=== PATIENT | male | born 1955 | race Caucasian/White ===

== ENCOUNTER → 2020-07-18 08:04 | Outpatient (BNVA) | payer MEDICARE, BC, SELFPAY | PROVIDERS: PCP Internal Medicine; Visit Provider Internal Medicine | DX: R07.2 Precordial pain (principal); I10 Essential (primary) hypertension; E78.5 Hyperlipidemia, unspecified; Z51.81 Encounter for therapeutic drug level monitoring; Z79.899 Other long term (current) drug therapy | CPT/HCPCS: 93005; 99202 ==

== ENCOUNTER → 2020-07-22 07:08 | Outpatient (REF) | payer MEDICARE, BC, SELFPAY ==
--- NOTE | ~2020-07-22 | NM_ITS ---
Exercise Myocardial perfusion study Indication: Precordial chest pain to evaluate for myocardial ischemia Technique: The patient was brought in for an exercise perfusion study on 07/22/2020. Patient performed exercise as per Bora protocol and was injected 30 mCi of sestamibi was given intravenously one target HR was achieved. Images were obtained using the SPECT gamma camera interlaced with the gating device. Images were obtained in supine position. Resting perfusion study was performed on 07/23/2020. Patient was administered 30 mCi of sestamibi intravenously at rest. Images were then obtained in supine position. Images obtained with and without CT attenuation. Total DLP 61 mGy-cm. Images were processed with the software and compared side to side in short axis, horizontal long axis and vertical long axis views. Findings: The stress perfusion study showed non attenuated images show mildly reduced uptake in the basal inferior wall of the LV myocardium. Remainder of the LV myocardium is normally perfused. Attenuation corrected images show minimally reduced uptake in the apex of the LV myocardium.. The gated study shows normal LV systolic function with calculated LVEF of 74%. LV cavity is normal in size. The gated study shows normal systolic wall thickening and contraction of all segments. There is no transient ischemic dilation. Resting study shows no change in perfusion pattern compared to stress perfusion study. Gating at rest reveals normal cyst colic wall motion with ejection fraction at 73%. The findings are consistent with normal myocardial perfusion. NM/NM cardiolite stress test Impression: 1. Normal myocardial perfusion 2. Gated LVEF is 74% 3. Transient ischemic dilatation not present Stress EKG is negative for ischemia
--- NOTE | 2020-07-22 07:12 | CA_ITS ---
Transthoracic Echocardiogram Patient (Last, First, Middle): Gato Dailey D Gender: Male Date of : 1955 Age: 64 Procedure Date: 07/22/2020 Procedure Type: Transthoracic Echocardiogram Location: OP Height: 180.34 cm Weight: 79.38 kg BSA: 1.99 m2 Heart Rate: bpm BP: 124 / 68 mmHg Industrial Electrical Engineer: Referring MD: Niko Ribeiro MD Symptoms: R07.2 - Precordial pain Study Quality: Good ECG Rhythm: Sinus Conclusions: - The left ventricular systolic function is normal. The visually estimated ejection fraction is between 60-65%. - There is mild mitral valve regurgitation. - There is mild tricuspid valve regurgitation. Findings Left Ventricle Normal left ventricular cavity size. There is normal left ventricular wall thickness. The left ventricular systolic function is normal. The visually estimated ejection fraction is between 60-65%. There is no evidence of regional wall motion abnormalities. Diastolic function is normal for age. Right Ventricle Normal right ventricular cavity size and systolic function. Atria The left atrium is mildly dilated. The right atrium is normal in size. Aortic Valve There is a normal trileaflet aortic valve. There is no aortic valve stenosis. There is no aortic valve regurgitation. Mitral Valve The mitral valve appears normal. There is mild mitral valve regurgitation. There is no mitral valve stenosis. Pulmonic Valve The pulmonic valve was not well visualized. There is mild pulmonic valve regurgitation. Tricuspid Valve Normal tricuspid valve structure. There is mild tricuspid valve regurgitation. The pulmonary artery systolic pressure is normal. Great Vessels The aortic annulus, sinuses of valsalva, and asc aorta are normal in size. Venous The inferior vena cava is normal in size and collapses greater than 50% with inspiration. Pericardium/Pleural There is no evidence of pericardial effusion. Prior Study Comparison No significant change compared to prior study dated: 10/08/2008. Measurements 2D Linear Measurements IVSd: 0.95 0.6-0.9/0.6-1.0 cm LVIDd: 4.26 3.9-5.3/4.2-5.9 cm LVIDd Index: 2.14 2.4-3.2/2.2-3.1 cm/m2 LVIDs: 2.62 2.0-3.6 cm LVPWd: 0.98 0.7-1.1 cm Ao Root: 3.00 2.1-3.5 cm LA Diam: 4.10 2.7-3.8/3.0-4.0 cm LAIDs Index: 2.06 1.5-2.3 cm/m2 LV Mass: 166.74 67-162/88-224 g LV Mass Index: 83.79 43-95/49-115 g/m2 LVOT Diam: 2.30 3.0+(-)1.3 cm 2D Systolic Function EF 4C: 63.10 >55% EF 2C: 65.00 >55% EF BiP: 64.20 >55% Mitral Valve MV Pk E: 0.71 MV PK A: 0.60 MV Decel Time: 248.00 E/A: 1.20 E'Lateral: 13.80 E'Medial: 8.03 E/E' Med: 8.90 E/E' Lat: 5.20 PHT: 73.00 MVA PHT: 3.01 Decel K[place]haw: 2.87 Aortic Valve AoV Pk Cisco: 1.36 AoV Mn Cisco: 0.83 AoV VTI: 0.33 AoV Pk Grad: 7.00 Aov Mn Grad: 3.00 CHRISS Cont.VTI: 3.48 LVOT LVOT Pk Cisco: 1.12 LVOT Mn Cisco: 0.72 LVOT VTI: 0.28 LVOT Pk Grad: 5.00 LVOT Mn Grad: 3.00 LVOT Diam: 2.30 LVOT Area: 4.15 Diastolic Function MV Pk E: 0.71 MV Pk A: 0.60 E/A: 1.20 E'Medial: 8.03 E/E' Med: 8.90 E' Laterial: 13.80 E/E' Lat: 5.20 Tricuspid Valve TR Pk Cisco: 2.54 TR Pk Grad: 26.00 Great Vessels Aorta Ao Root-2D: 3.00 2.0-3.7 cm Ao Asc: 3.20 2.1-3.4 cm Pulmonary Valve PV Pk Cisco: 1.11 Peak PV Grad: 5.00 Updated in Other Vendor System with Status of Final Niko Ribeiro MD electronically signed on 07/22/2020 11:47:06 AM with status of Final
--- NOTE | 2020-07-22 07:13 | CA_ITS ---
Acquisition Time: 2020-07-22 08:31:17 Total Exercise Time: 00:04:32 Test Indications: Chest Pain Medications: SOTOLOL LISINOPRIL ATORVASTATIN Protocol: CLEOPATRA Max HR: 155 BPM 100% of Pred: 154 BPM Max BP: 164/080 mmHG Max Work Load: 6.4 METS Exercise stress nuclear using Cleopatra protocol. Pt tolerated well, METS 6.40. TAPHR up to 100%. Denies any anginal sx. EKG without arrhythmias. No ischemic changes seen in peak exercise or in recovery period. Nuclear images to follow. Normotensive response to exercise. Test reviewed with Dr. Ribeiro Referred By: Niko Ribeiro Overread By: Vincenzo Victoria
== END ==
LOC: HO.CARD 07:08
PROVIDERS: PCP Internal Medicine; Visit Provider Internal Medicine
DX: R07.2 Precordial pain (principal)
CPT/HCPCS: 78452; 93017; 93306; A9500; J0280; J2785

== ENCOUNTER → 2020-07-31 08:19 | Outpatient (BNVA) | payer MEDICARE, BC, SELFPAY | PROVIDERS: PCP Internal Medicine; Visit Provider Internal Medicine | DX: R07.2 Precordial pain (principal); I10 Essential (primary) hypertension; E78.5 Hyperlipidemia, unspecified; Z51.81 Encounter for therapeutic drug level monitoring; Z79.899 Other long term (current) drug therapy | CPT/HCPCS: 99212 ==

== ENCOUNTER 2020-08-18 11:08 | Outpatient (REF) | payer MEDICARE, BC, SELFPAY ==
--- NOTE | ~2020-08-18 | US_ITS ---
EXAMINATION: US ABDOMINAL AORTA CLINICAL INFORMATION: History of nicotine dependence. Evaluate for aneurysm. COMPARISON: None TECHNIQUE: Routine imaging of retroperitoneal abdominal aorta was performed. FINDINGS: The abdominal aorta proximal segment measures 2.6 x 2.4 cm in AP and transverse dimension. The mid segment measures 1.8 x 1.9 cm in AP and transverse dimension. Distal abdominal aorta measures 1.9 x 1.9 cm in AP and transverse dimension. Peak systolic velocity abdominal aorta measures 94 cm/sec. Right common iliac artery measures 0.9 x 1.0 cm in AP and transverse dimension. Left common iliac artery measures 1.0 x 0.8 cm in AP and transverse dimension. US/US abdominal aortic aneurysm IMPRESSION: No evidence of AAA.
== END 2020-08-18 11:09 | disposition home or self-care (01) ==
LOC: HO.US 11:08
PROVIDERS: PCP Internal Medicine; Visit Provider Internal Medicine
DX: Z87.891 Personal history of nicotine dependence (principal)
CPT/HCPCS: 76706

== ENCOUNTER → 2020-08-21 08:16 | Outpatient (BNVA) | payer MEDICARE, BC, SELFPAY | PROVIDERS: PCP Internal Medicine; Visit Provider Internal Medicine | DX: R07.2 Precordial pain (principal); R00.2 Palpitations; I10 Essential (primary) hypertension; E78.5 Hyperlipidemia, unspecified; Z79.899 Other long term (current) drug therapy; Z87.891 Personal history of nicotine dependence | CPT/HCPCS: 99212 ==

== ENCOUNTER 2020-09-20 06:54 | Outpatient (REF) | payer MEDICARE, BC, SELFPAY ==
[2020-09-20 08:49] LABS: Alanine Aminotransferase 22 U/L (0-40); Albumin Level 4.2 g/dL (3.5-5.0); Alkaline Phosphatase 62 U/L (39-117); Anion Gap 14 (12-20); Aspartate Amino Transferase 20 U/L (5-37); Bilirubin Total 1.5 mg/dL (0.0-1.0); Blood Urea Nitrogen 22 mg/dL (9-16); Calcium 9.3 mg/dL (8.4-10.2); Carbon Dioxide 25 mmol/L (22-29); Chloride 106 mmol/L (96-108); Cholesterol 132 mg/dL; Estimated Glomerular Filt Rate > 60; Glucose Fasting 101 mg/dL (60-99); HDL Cholesterol 42 mg/dL; LDL Cholesterol Calculated 78 mg/dl; Potassium 4.7 mmol/L (3.3-5.1); Sodium 140 mmol/L (135-145); Total Protein 6.7 g/dL (6.5-8.0); Triglycerides 60 mg/dL
== END 2020-09-20 06:55 | disposition home or self-care (01) ==
LOC: HO.LAB 06:54
PROVIDERS: PCP Internal Medicine; Visit Provider Internal Medicine
DX: E78.5 Hyperlipidemia, unspecified (principal); I10 Essential (primary) hypertension
CPT/HCPCS: 36415; 80053; 80061

== ENCOUNTER → 2020-10-14 08:58 | Outpatient (BNVA) | payer MEDICARE, BC, SELFPAY | PROVIDERS: PCP Internal Medicine; Visit Provider Internal Medicine ==

== ENCOUNTER → 2020-10-28 10:51 | Outpatient (REF) | payer MEDICARE, BC, SELFPAY ==
--- NOTE | 2020-10-28 10:56 | HM_ITS ---
REASON FOR THE TEST: Palpitations. INTERPRETATION: The patient was hooked up to cardiac event monitor from 10/28/2020 to 11/27/2020. FINDINGS: Baseline rhythm is normal sinus rhythm varying from 63 beats per minute to 111 beats per minute. There were no patient reported symptoms. There were no arrhythmias noted. CONCLUSION: Cardiac event monitor is remarkable for: 1. Baseline normal sinus rhythm with no arrhythmias. 2. No patient reported symptoms. Reinaldo Gooden MD NRS/MODL / [id number]
== END ==
LOC: HO.CARD 10:51
PROVIDERS: Visit Provider Internal Medicine
DX: R00.2 Palpitations (principal)
CPT/HCPCS: 93270

== ENCOUNTER → 2020-12-04 09:28 | Outpatient (BNVA) | payer MEDICARE, BC, SELFPAY | PROVIDERS: PCP Internal Medicine; Visit Provider Internal Medicine | DX: R07.2 Precordial pain (principal); R00.2 Palpitations; I10 Essential (primary) hypertension; E78.5 Hyperlipidemia, unspecified; Z87.891 Personal history of nicotine dependence; Z51.81 Encounter for therapeutic drug level monitoring | CPT/HCPCS: 99212 ==

== ENCOUNTER 2021-03-20 14:30 | Outpatient (REF) | payer MEDICARE, BC, SELFPAY ==
--- NOTE | ~2021-03-20 | XR_ITS ---
EXAMINATION: XR CHEST CLINICAL INFORMATION: Cough. COMPARISON: None TECHNIQUE: 2 views of the chest were obtained. FINDINGS: No significant abnormality is noted involving the heart, lungs, mediastinum, bony thorax or soft tissues. XR/XR chest 2V IMPRESSION: Unremarkable chest examination.
== END 2021-03-20 14:31 | disposition home or self-care (01) ==
LOC: HO.HMGCX 14:30
PROVIDERS: PCP Internal Medicine; Visit Provider Physician Assistant Medical
DX: R05.9 Cough, unspecified (principal)
CPT/HCPCS: 71046

== ENCOUNTER 2021-04-08 05:59 | Outpatient (REF) | payer MEDICARE, BC, SELFPAY ==
[2021-04-08 12:14] LABS: Alanine Aminotransferase 16 U/L (0-40); Albumin Level 4.3 g/dL (3.5-5.0); Alkaline Phosphatase 72 U/L (39-117); Anion Gap 13 (12-20); Aspartate Amino Transferase 18 U/L (5-37); Bilirubin Total 1.7 mg/dL (0.0-1.0); Blood Urea Nitrogen 18 mg/dL (9-16); Calcium 9.1 mg/dL (8.4-10.2); Carbon Dioxide 28 mmol/L (22-29); Chloride 103 mmol/L (96-108); Cholesterol 128 mg/dL; Estimated Glomerular Filt Rate > 60; Glucose Fasting 100 mg/dL (60-99); HDL Cholesterol 42 mg/dL; LDL Cholesterol Calculated 72 mg/dl; Potassium 4.7 mmol/L (3.3-5.1); Sodium 139 mmol/L (135-145); Total Protein 6.8 g/dL (6.5-8.0); Triglycerides 71 mg/dL
== END 2021-04-08 06:00 | disposition home or self-care (01) ==
LOC: HO.HMGCLDS 05:59
PROVIDERS: PCP Internal Medicine; Visit Provider Internal Medicine
DX: E78.5 Hyperlipidemia, unspecified (principal); I10 Essential (primary) hypertension
CPT/HCPCS: 36415; 80053; 80061

== ENCOUNTER 2021-04-16 12:38 | Outpatient (REF) | payer MEDICARE, BC, SELFPAY ==
[2021-04-16 14:41] LABS: Prostate Specific Antigen 0.85 ng/mL (<0.05-4.0)
== END 2021-04-16 12:39 | disposition home or self-care (01) ==
LOC: HO.10HDL 12:38
PROVIDERS: Visit Provider Nurse Practitioner Family
DX: Z12.5 Encounter for screening for malignant neoplasm of prostate (principal)
CPT/HCPCS: 36415; 84153

== ENCOUNTER → 2021-11-26 08:22 | Outpatient (BNVA) | payer MEDICARE, BC, SELFPAY | PROVIDERS: PCP Internal Medicine; Referring Provider Internal Medicine; Visit Provider Internal Medicine | DX: R00.2 Palpitations (principal); I10 Essential (primary) hypertension; E78.5 Hyperlipidemia, unspecified | CPT/HCPCS: 93005; 99212 ==

== ENCOUNTER 2021-12-01 10:26 | Outpatient (REF) | payer MEDICARE, BC, SELFPAY ==
[2021-12-01 14:22] LABS: Anion Gap 12 (12-20); Blood Urea Nitrogen 17 mg/dL (9-16); Calcium 9.5 mg/dL (8.4-10.2); Carbon Dioxide 25 mmol/L (22-29); Chloride 106 mmol/L (96-108); Estimated Glomerular Filt Rate > 60; Glucose Random 95 mg/dL (60-115); Sodium 138 mmol/L (135-145)
== END 2021-12-01 10:27 | disposition home or self-care (01) ==
LOC: HO.10HDL 10:26
PROVIDERS: Absent Provider Internal Medicine; Visit Provider Internal Medicine
DX: I10 Essential (primary) hypertension (principal)
CPT/HCPCS: 36415; 80048

== ENCOUNTER 2022-07-14 06:01 | Outpatient (REF) | payer MEDICARE, BC, SELFPAY ==
[2022-07-14 12:23] LABS: Alanine Aminotransferase 19 U/L (0-40); Albumin Level 4.3 g/dL (3.5-5.0); Alkaline Phosphatase 70 U/L (39-117); Anion Gap 11 (12-20); Aspartate Amino Transferase 19 U/L (5-37); Bilirubin Total 1.6 mg/dL (0.0-1.0); Blood Urea Nitrogen 20 mg/dL (9-16); Calcium 9.5 mg/dL (8.4-10.2); Carbon Dioxide 29 mmol/L (22-29); Chloride 104 mmol/L (96-108); Cholesterol 144 mg/dL; Estimated Glomerular Filt Rate > 60; Glucose Fasting 115 mg/dL (60-99); HDL Cholesterol 40 mg/dL; LDL Cholesterol Calculated 86 mg/dl; PSA,Total (Free>4and<10) 3.08 ng/mL (0.00-4.00); Potassium 4.1 mmol/L (3.3-5.1); Sodium 140 mmol/L (135-145); Total Protein 6.6 g/dL (6.5-8.0); Triglycerides 91 mg/dL
== END 2022-07-14 06:02 | disposition home or self-care (01) ==
LOC: HO.HMGCLDS 06:01
PROVIDERS: PCP Internal Medicine; Visit Provider Internal Medicine
DX: E78.5 Hyperlipidemia, unspecified (principal); I10 Essential (primary) hypertension; Z12.5 Encounter for screening for malignant neoplasm of prostate
CPT/HCPCS: 36415; 80053; 80061; 84153

== ENCOUNTER → 2022-12-09 07:58 | Outpatient (BNVA) | payer MEDICARE, BC, SELFPAY | PROVIDERS: PCP Internal Medicine; Referring Provider Internal Medicine; Visit Provider Internal Medicine | DX: R00.2 Palpitations (principal); I10 Essential (primary) hypertension; E78.5 Hyperlipidemia, unspecified | CPT/HCPCS: 93005; 99212 ==

== ENCOUNTER 2023-01-28 06:02 | Outpatient (REF) | payer MEDICARE, BC, SELFPAY ==
[2023-01-28 11:57] LABS: Alanine Aminotransferase 19 U/L (0-40); Albumin Level 4.3 g/dL (3.5-5.0); Alkaline Phosphatase 58 U/L (39-117); Anion Gap 12 (12-20); Aspartate Amino Transferase 21 U/L (5-37); Bilirubin Total 1.4 mg/dL (0.0-1.0); Blood Urea Nitrogen 22 mg/dL (9-16); Calcium 9.9 mg/dL (8.4-10.2); Carbon Dioxide 27 mmol/L (22-29); Chloride 106 mmol/L (96-108); Cholesterol 112 mg/dL; Estimated Glomerular Filt Rate > 60; Glucose Fasting 98 mg/dL (60-99); HDL Cholesterol 42 mg/dL; LDL Cholesterol Calculated 57 mg/dl; Potassium 4.5 mmol/L (3.3-5.1); Sodium 140 mmol/L (135-145); Total Protein 6.8 g/dL (6.5-8.0); Triglycerides 67 mg/dL
== END 2023-01-28 06:03 | disposition home or self-care (01) ==
LOC: HO.HMGCLDS 06:02
PROVIDERS: PCP Internal Medicine; Visit Provider Internal Medicine
DX: E78.5 Hyperlipidemia, unspecified (principal)
CPT/HCPCS: 36415; 80053; 80061

== ENCOUNTER 2023-02-07 11:03 | Outpatient (AMB) | payer MEDICARE, BC, SELFPAY ==
--- NOTE | 2023-02-07 11:13 | MHC.PC.OV ---
Vital Signs 02/07/23 11:15 Height 5 ft 10 in Weight 167 lb BMI 24.0 BP 136/78 Blood Pressure Location Lt brachial Position Sitting Intake Visit Reasons: bp Intake Note: Patient here for a follow up BP Bioengineer Required: No Accompanied by: Self / Same As Patient Allergies No Known Allergies Allergy (Verified 02/07/23 11:27) Medication List - Last Reconciled 02/07/23 by Karly Blanco MD atorvastatin 10 mg PO DAILY lisinopril 10 mg PO DAILY 90 days Tobacco use date assessed: 08/09/22 Fall risk assessment: No Falls in past year Last assessed Fall Risk: 02/07/23 Dental Screening Dental Screen Date: 02/07/23 Did you have a dental visit in the last 12 months?: Yes Did you have a dental problem in the last 6 months where you did not have access to dental care?: No Was dental information given to patient?: Patient has dentist HPI HPI Comments History of Present Illness Details This is a 67-year-old male with hypertension and dyslipidemia that comes today for follow-up on his conditions. Blood pressure well control. Cholesterol stable with statins. No chest pain or shortness of breath. Has intentionally following a diet that has caused some weight loss. Fasting blood glucose markedly improved with diet. [facility] Medical History Dyslipidemia Encounter for monitoring sotalol therapy Essential hypertension Former smoker Other and unspecified hyperlipidemia Surgical History History of colonoscopy Family History Father HTN (hypertension) Mother Cardiac pacemaker Brother HTN (hypertension) Sister HTN (hypertension) Social History Housing: House Alcohol intake: former Patient Tobacco Use Status: Former Tobacco user Tobacco use type: Cigarette e-Cigarette/Vaping Use: Never Used Second Hand Smoke Exposure: No service: Yes Current occupational status: retired Current occupational exposures/hazards: No Cognitive needs: No Hearing needs: No Vision needs: Yes Questionnaire Thrive Questionnaire Date Thrive assessed: 08/09/22 SALOME-7 AMB Questionnaire SALOME-7 Date SALOME - 7 assessed: 08/09/22 Source: Developed by Drs. Phill Lugo, Christine Lopez, Michele Melgar and colleagues, with an educational josefina from [employer]. Review of Systems Const All systems reviewed & are unremarkable except as noted in HPI and below Eyes Reports no additional complaints, Denies change in vision and Denies other visual disturbances Card Denies chest pain at rest, Denies chest pain with activity, Denies edema, Denies irregular heart rhythm, Denies claudication, Denies dyspnea, Denies dyspnea on exertion, Denies orthopnea, Denies paroxysmal nocturnal dyspnea and Denies slow heart rate Resp Denies cough, Denies dyspnea and Denies dyspnea on exertion GI Denies abdominal pain, Denies change in bowel habits, Denies excessive flatus, Denies nausea and Denies vomiting Denies urinary hesitancy, Denies urinary incontinence and Denies urinary urgency Musc Denies abnormal gait, Denies atrophy, Denies deformity and Denies limited range of motion Skin/Breast Denies bleeding lesions, Denies changing lesions and Denies rash Neuro Denies abnormal gait and Denies lack of coordination Physical exam (Primary Care) Vital Signs: Last Vital Signs BP 136/78 02/07/23 11:15 BMI result Body Mass Index 24.0 Tobacco/Smoking Status: Tobacco use Status Tobacco use date assessed 08/09/22 02/07/23 11:20 Patient Tobacco Use Status Former Tobacco user 02/07/23 11:20 Tobacco use type Cigarette 02/07/23 11:20 e-Cigarette/Vaping Use Never Used 02/07/23 11:20 Thrive Assessment: Date of Thrive Assessment Date Thrive assessed 08/09/22 02/07/23 11:20 Eyes General: appearance normal, both eyes and all related structures Eyelids: Yes eyelids normal Conjunctivae: conjunctivae normal Neck Neck: Yes normal visual inspection and Yes supple Resp Effort & Inspection: normal respiratory effort Auscultation: clear to auscultation bilaterally Cardio Jugular venous distension: no JVD Rate: regular rate Rhythm: regular rhythm Heart sounds: S1 normal heart sound present and S2 normal heart sound present Extrem General: Yes full ROM Assessment and Plan Assessment & Plan (1) Essential hypertension: Code(s): I10 - Essential (primary) hypertension Plan: Continue lisinopril. Blood pressure goal is equal or less than 130/80. (2) Dyslipidemia: Code(s): E78.5 - Hyperlipidemia, unspecified Plan: Continue statins. Orders: Orders Comprehensive [place]. Panel Fast 7 Months E78.5 - Hyperlipidemia, unspecified Lipid Panel 7 Months E78.5 - Hyperlipidemia, unspecified Coding Level of Care Code Est Pt Level 3 (35776) Diagnoses Essential hypertension I10 Dyslipidemia E78.5 Time Spent (min) 18
[2023-02-07 11:15] VITALS: BP 136/78; BMI 24.0
== END 2023-02-07 11:34 | disposition home or self-care (01) ==
PROVIDERS: Visit Provider Internal Medicine
DX: I10 Essential (primary) hypertension (principal); E78.5 Hyperlipidemia, unspecified
CPT/HCPCS: 99213

== ENCOUNTER 2023-08-15 09:49 | Outpatient (AMB) | payer MEDICARE, BC, SELFPAY ==
--- NOTE | 2023-08-15 09:51 | A.OFFPC_ITS ---
Vital Signs 08/15/23 09:53 Height 5 ft 10 in Weight 175 lb BMI 25.1 BP 120/62 Blood Pressure Location Lt brachial Position Sitting Intake Visit Reasons: Annual Exam Intake Note: Patient here for a physical exam Process Chemist Required: No Accompanied by: Self / Same As Patient Allergies No Known Allergies Allergy (Verified 08/15/23 10:03) Medication List - Last Reconciled 08/15/23 by Karly Blanco MD atorvastatin 10 mg PO DAILY lisinopril 10 mg PO DAILY 90 days Tobacco use date assessed: 08/15/23 Fall risk assessment: No Falls in past year Last assessed Fall Risk: 08/15/23 Dental Screening Dental Screen Date: 08/15/23 Did you have a dental visit in the last 12 months?: Yes Did you have a dental problem in the last 6 months where you did not have access to dental care?: No Was dental information given to patient?: Patient has dentist HPI HPI Comments History of Present Illness Details This is a 67-year-old male that comes for his physical exam. Last colonoscopy was 2019 showing tubular adenoma next colonoscopy should be 2024. Denies any chest pain or shortness of breath. No fever or cough. No acute complaint. [facility] Medical History Dyslipidemia Former smoker Other and unspecified hyperlipidemia Essential hypertension Encounter for monitoring sotalol therapy Surgical History History of colonoscopy Family History Father HTN (hypertension) Mother Cardiac pacemaker Brother HTN (hypertension) Sister HTN (hypertension) Social History Housing: House Alcohol intake: former Patient Tobacco Use Status: Former Tobacco user Tobacco use type: Cigarette e-Cigarette/Vaping Use: Never Used Second Hand Smoke Exposure: No service: Yes Current occupational status: retired Current occupational exposures/hazards: No Cognitive needs: No Hearing needs: No Vision needs: Yes Questionnaire PHQ-9 Over the last 2 weeks, how often have you been bothered by any of the following problems? 1. Little interest or pleasure in doing things: not at all 2. Feeling down, depressed, or hopeless: not at all 3. Trouble falling or staying asleep, or sleeping too much: not at all 4. Feeling tired or having little energy: not at all 5. Poor appetite or overeating: not at all 6. Feeling bad about yourself - or that you are a failure or have let yourself or your family down: not at all 7. Trouble concentrating on things, such as reading the newspaper or watching television: not at all 8. Moving or speaking so slowly that other people could have noticed. Or the opposite - being so fidgety or restless that you have been moving around a lot more than usual: not at all 9. Thoughts that you would be better off or of hurting yourself in some way: not at all Total score: 0 Depression Screening Interpretation: Negative Depression Screening Done: Yes 13684 - PHQ-9 Billing: Yes Source: Developed by Drs. Phill Lugo, Christine Lopez, Michele Melgar and colleagues, with an educational josefina from [employer] Thrive Questionnaire Date Thrive assessed: 08/15/23 I am a: Patient What is your living situation today?: I have a steady place to live Within the past 12 months, did the food you bought not last and you didn't have the money to get more?: Never true Within the past 12 months, did you worry whether your food would run out before you got money to buy more?: Never true Do you have trouble paying for medicines?: No Do you have trouble getting transportation to medical appointments?: No Do you have trouble paying your heating and electricity bill?: No Do you have trouble taking care of your child, family member or friend?: No Do you have trouble with day-to-day activities such as bathing, preparing meals, shopping, managing finances, etc.?: No Are you currently unemployed and looking for a job?: No Are you interested in more education?: No Please select the resources that you would like help with: None Currently or been in a relationship where the following occur: no concerns reported THRIVE Score: 0 AUDIT C Alcohol Use Questionnaire (AUDIT-C) 1. How often do you have a drink containing alcohol?: Never Total Score: 0 SALOME-7 AMB Questionnaire SALOME-7 Date SALOME - 7 assessed: 08/15/23 Feeling nervous, anxious, or on edge: 0 = Not at all Not being able to stop or control worryin = Not at all Worrying too much about different things: 0 = Not at all Trouble relaxin = Not at all Being so restless that it is hard to sit still: 0 = Not at all Becoming easily annoyed or irritable: 0 = Not at all Feeling afraid as if something awful might happen: 0 = Not at all Total SALOME-7 score (0-4 normal; 5-9 mild; 10-14 moderate; 15-21 severe): 0 Source: Developed by Drs. Phill Lugo, Christine Lopez, Michele Melgar and colleagues, with an educational josefina from [employer] SALOME-7 Assessment Billing SALOME-7 Assessment Tool: SALOME-7 Assessment 99503 Review of Systems Const All systems reviewed & are unremarkable except as noted in HPI and below Eyes Reports no additional complaints, Denies change in vision and Denies other visual disturbances Card Denies chest pain at rest, Denies chest pain with activity, Denies edema, Denies irregular heart rhythm, Denies claudication, Denies dyspnea, Denies dyspnea on exertion, Denies orthopnea, Denies paroxysmal nocturnal dyspnea and Denies slow heart rate Resp Denies cough, Denies dyspnea and Denies dyspnea on exertion GI Denies abdominal pain, Denies change in bowel habits, Denies excessive flatus, Denies nausea and Denies vomiting Denies urinary hesitancy, Denies urinary incontinence and Denies urinary urgency Musc Denies abnormal gait, Denies atrophy, Denies deformity and Denies limited range of motion Skin/Breast Denies bleeding lesions, Denies changing lesions and Denies rash Neuro Denies abnormal gait and Denies lack of coordination Physical exam (Primary Care) Vital Signs: Last Vital Signs BP 120/62 08/15/23 09:53 BMI result Body Mass Index 25.1 Tobacco/Smoking Status: Tobacco use Status Tobacco use date assessed 08/15/23 08/15/23 09:58 Patient Tobacco Use Status Former Tobacco user 08/15/23 09:58 Tobacco use type Cigarette 08/15/23 09:58 e-Cigarette/Vaping Use Never Used 08/15/23 09:58 PHQ-9: PHQ-9 Score PHQ-9: Total score 0 08/15/23 10:07 Depression Screening Interpretation: Negative Thrive Assessment: Date of Thrive Assessment Date Thrive assessed 08/15/23 08/15/23 09:58 Currently or been in a relationship where the following occur: no concerns reported Const Orientation/consciousness: patient oriented x3 HENMT Head: Yes normal to inspection, Yes normocephalic and Yes atraumatic Ears: external ears normal Eyes General: appearance normal, both eyes and all related structures Eyelids: Yes eyelids normal Conjunctivae: conjunctivae normal Neck Neck: Yes normal visual inspection and Yes supple Resp Effort & Inspection: normal respiratory effort Auscultation: clear to auscultation bilaterally Cardio Jugular venous distension: no JVD Rate: regular rate Rhythm: regular rhythm Heart sounds: S1 normal heart sound present and S2 normal heart sound present GI Inspection: Yes normal to inspection Palpation (GI): Soft to palpation and nontender Auscultation: normal bowel sounds Skin General skin exam: no rashes or lesions noted Neuro General: patient oriented x3 and no focal motor deficits Extrem General: Yes full ROM Psych Appearance: grossly normal Assessment and Plan Assessment & Plan (1) Adult general medical exam: Code(s): Z00.00 - Encounter for general adult medical examination without abnormal findings Plan: Repeat in a year. Orders: Orders Comprehensive [place]. Panel Fast Today Z00.00 - Encounter for general adult medical examination without abnormal findings Lipid Panel Today E78.5 - Hyperlipidemia, unspecified, Z00.00 - Encounter for general adult medical examination without abnormal findings Coding Level of Care Code New Pt Prev Care >65yr (28126) Diagnoses Adult general medical exam Z00.00 Additional Codes SALOME-7 Assessment Billing - SALOME-7 Assessment Tool: SALOME-7 Assessment 64219 ([id number]) Time Spent (min) 32
[2023-08-15 09:53] VITALS: BP 120/62; BMI 25.1
== END 2023-08-15 10:22 | disposition home or self-care (01) ==
PROVIDERS: Visit Provider Internal Medicine
DX: Z00.00 Encounter for general adult medical examination without abnormal findings (principal)
CPT/HCPCS: 99397

== ENCOUNTER 2023-08-16 06:02 | Outpatient (REF) | payer MEDICARE, BC, SELFPAY ==
[2023-08-16 11:58] LABS: Alanine Aminotransferase 18 U/L (0-40); Albumin Level 4.2 g/dL (3.5-5.0); Alkaline Phosphatase 69 U/L (39-117); Anion Gap 10 (12-20); Aspartate Amino Transferase 20 U/L (5-37); Bilirubin Total 1.4 mg/dL (0.0-1.0); Blood Urea Nitrogen 20 mg/dL (9-16); Calcium 9.3 mg/dL (8.4-10.2); Carbon Dioxide 29 mmol/L (22-29); Chloride 104 mmol/L (96-108); Cholesterol 128 mg/dL (<200); Estimated Glomerular Filt Rate > 60; Glucose Fasting 95 mg/dL (60-99); HDL Cholesterol 42 mg/dL (>40); LDL Cholesterol Calculated 72 mg/dL (<100); Potassium 4.3 mmol/L (3.3-5.1); Sodium 139 mmol/L (135-145); Total Protein 6.8 g/dL (6.5-8.0); Triglycerides 73 mg/dL (<150)
== END 2023-08-16 06:03 | disposition home or self-care (01) ==
LOC: HO.HMGCLDS 06:02
PROVIDERS: PCP Internal Medicine; Visit Provider Internal Medicine
DX: Z00.00 Encounter for general adult medical examination without abnormal findings (principal); E78.5 Hyperlipidemia, unspecified
CPT/HCPCS: 36415; 80053; 80061

== ENCOUNTER 2024-02-15 09:40 | Outpatient (AMB) | payer MEDICARE, BC, SELFPAY ==
--- NOTE | 2024-02-15 09:48 | A.OFFPC_ITS ---
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 Required: No Accompanied by: Self / Same As Patient Allergies No Known Allergies Allergy (Verified 02/15/24 09:58) Medication List - Last Reconciled 02/15/24 by Karly Blanco MD atorvastatin 10 mg PO DAILY lisinopril 10 mg PO DAILY Tobacco use date assessed: 08/15/23 Fall risk assessment: No Falls in past year Last assessed Fall Risk: 02/15/24 Dental Screening Dental Screen Date: 08/15/23 HPI HPI Comments History of Present Illness Details This is a 68-year-old male with hypertension and dyslipidemia that comes today complaining of a right inguinal lump that has been present for about 4 months. He noticed it at the gym. It is protruding when he is standing up. He denies any abdominal pain. Blood pressure stable. Last cholesterol was well controlled. He also complains of erectile dysfunction and I will start him on tadalafil as needed for this matter. No chest pain or shortness on breath. [facility] Medical History (Updated 02/15/24 @ 10:10 by Karly Blanco MD) Dyslipidemia Former smoker Other and unspecified hyperlipidemia Essential hypertension Encounter for monitoring sotalol therapy Surgical History History of colonoscopy Family History Father HTN (hypertension) Mother Cardiac pacemaker Brother HTN (hypertension) Sister HTN (hypertension) Social History Housing: House Alcohol intake: former Patient Tobacco Use Status: Former Tobacco user Tobacco use type: Cigarette e-Cigarette/Vaping Use: Never Used Second Hand Smoke Exposure: No service: Yes Current occupational status: retired Current occupational exposures/hazards: No Cognitive needs: No Hearing needs: No Vision needs: Yes Questionnaire Thrive Questionnaire Date Thrive assessed: 08/15/23 AUDIT C Alcohol Use Questionnaire (AUDIT-C) 1. How often do you have a drink containing alcohol?: Never Total Score: 0 Score Reviewed/Action Taken: No SALOME-7 AMB Questionnaire SALOME-7 Date SALOME - 7 assessed: 08/15/23 Source: Developed by Drs. Phill Lugo, Christine Lopez, Michele Melgar and colleagues, with an educational josefina from [employer]. Review of Systems Const All systems reviewed & are unremarkable except as noted in HPI and below Card Denies chest pain at rest, Denies chest pain with activity, Denies edema, Denies irregular heart rhythm, Denies claudication, Denies dyspnea, Denies dyspnea on exertion, Denies orthopnea, Denies paroxysmal nocturnal dyspnea and Denies slow heart rate Resp Denies cough, Denies dyspnea and Denies dyspnea on exertion GI Denies abdominal pain, Denies change in bowel habits, Denies excessive flatus, Denies nausea and Denies vomiting Physical exam (Primary Care) Vital Signs: Last Vital Signs Pulse 73 02/15/24 09:49 BP 122/68 02/15/24 09:49 Pulse Ox 97 02/15/24 09:49 Oxygen Delivery Method Room Air 02/15/24 09:49 BMI result Body Mass Index 24.4 Tobacco/Smoking Status: Tobacco use Status Tobacco use date assessed 08/15/23 02/15/24 09:49 Patient Tobacco Use Status Former Tobacco user 02/15/24 09:49 Tobacco use type Cigarette 02/15/24 09:49 e-Cigarette/Vaping Use Never Used 02/15/24 09:49 Thrive Assessment: Date of Thrive Assessment Date Thrive assessed 08/15/23 02/15/24 09:49 Resp Effort & Inspection: normal respiratory effort Auscultation: clear to auscultation bilaterally Cardio Jugular venous distension: no JVD Rate: regular rate Rhythm: regular rhythm Heart sounds: S1 normal heart sound present and S2 normal heart sound present GI Inspection: Yes normal to inspection Palpation (GI): Soft to palpation, nontender and Hernia present indirect inguinal on the right Auscultation: normal bowel sounds Extrem General: Yes full ROM Psych Appearance: grossly normal Assessment and Plan Assessment & Plan (1) Right inguinal hernia: Code(s): K40.90 - Unilateral inguinal hernia, without obstruction or gangrene, not specified as recurrent Plan: Ultrasound of the abdomen ordered. (2) Erectile dysfunction: Code(s): N52.9 - Male erectile dysfunction, unspecified Plan: Start tadalafil as needed. (3) Essential hypertension: Code(s): I10 - Essential (primary) hypertension Plan: Continue lisinopril. Blood pressure goal is equal or less than 130/80. (4) Dyslipidemia: Code(s): E78.5 - Hyperlipidemia, unspecified Plan: Continue statins. Repeat lipid panel in 6 months. Orders: Orders Lipid Panel 6 Months E78.5 - Hyperlipidemia, unspecified PSA,Total (Free>4and<10) 6 Months Z12.5 - Encounter for screening for malignant neoplasm of prostate US abdomen limited Today K40.90 - Unilateral inguinal hernia, without obstruction or gangrene, not specified as recurrent Comprehensive [place]. Panel Fast 6 Months I10 - Essential (primary) hypertension Testosterone, Free/Total 6 Months N52.9 - Male erectile dysfunction, unspecified Medications: New tadalafil administer approximately 30min before sexual activity; do not use more than 1 dose per 24hrs 20 mg PO DAILY 30 days PRN 3 tabs 2RF sexual activity N52.9 - Male erectile dysfunction, unspecified Coding Level of Care Code Est Pt Level 4 (99222) Complex EM visit Add On G2211 Diagnoses Right inguinal hernia K40.90 Erectile dysfunction N52.9 Essential hypertension I10 Dyslipidemia E78.5 Time Spent (min) 22
[2024-02-15 09:49] VITALS: BP 122/68; PULSE 73; O2SAT 97; BMI 24.4
== END 2024-02-15 10:09 | disposition home or self-care (01) ==
PROVIDERS: PCP Internal Medicine; Visit Provider Internal Medicine
DX: K40.90 Unilateral inguinal hernia, without obstruction or gangrene, not specified as recurrent (principal); N52.9 Male erectile dysfunction, unspecified; I10 Essential (primary) hypertension; E78.5 Hyperlipidemia, unspecified
CPT/HCPCS: 99214; G2211

== ENCOUNTER 2024-02-28 07:45 | Outpatient (REF) | payer MEDICARE, BC, SELFPAY ==
--- NOTE | ~2024-02-28 | US_ITS ---
EXAMINATION: US ABDOMEN LIMITED CLINICAL INFORMATION: Unilateral inguinal hernia, without obstruction or gangrene. COMPARISON: None available. TECHNIQUE: Real-time imaging of the region of concern in the right inguinal area. FINDINGS: Targeted ultrasound images were obtained by the riding coach of the area of concern as indicated by the patient in the right inguinal region. There is a right inguinal hernia with neck measuring approximately 1.7 cm. Radiologist was not in attendance. Images were later provided for interpretation. US/US abdomen limited IMPRESSION: Right inguinal hernia. CT scan recommended for further evaluation. Electronically signed by: Delia Camacho MD 03/06/2024 07:35 AM EDT
== END 2024-02-28 07:46 | disposition home or self-care (01) ==
LOC: HO.US 07:45
PROVIDERS: PCP Internal Medicine; Visit Provider Internal Medicine
DX: K40.90 Unilateral inguinal hernia, without obstruction or gangrene, not specified as recurrent (principal)
CPT/HCPCS: 76705

== ENCOUNTER 2024-03-21 10:45 | Outpatient (REF) | payer MEDICARE, BC, SELFPAY ==
--- NOTE | ~2024-03-21 | CT_ITS ---
EXAMINATION: CT ABDOMEN AND PELVIS WITHOUT CONTRAST CLINICAL INFORMATION: Unilateral inguinal hernia. COMPARISON: Ultrasound abdomen 02/28/2024. TECHNIQUE: Multidetector volumetric imaging was performed from the superior aspect of the liver through the pubic symphysis. Sagittal and coronal reformatted images were obtained on the technologist's workstation. This CT examination was performed using dose optimization techniques as appropriate, variously including the following: *Automated exposure control *Adjustment of mA and/or kV according to patient size (this includes techniques or standardized protocols for targeted exams where dose is matched to indication/reason for exam; i.e. extremities or head) *Use of iterative reconstruction technique DLP: 675 mGy-cm. FINDINGS: LUNG BASES: The visualized lung bases are unremarkable. LIVER, GALLBLADDER, AND BILIARY TREE: The liver is normal in size, shape, and attenuation. No focal hepatic lesion or biliary ductal dilatation is present. There is cholelithiasis without evidence of cholecystitis. PANCREAS: Unremarkable. SPLEEN: Unremarkable. ADRENAL GLANDS: Unremarkable. KIDNEYS AND URETERS: The kidneys are normal in size, shape, and attenuation. No hydronephrosis, hydroureter, or calculi seen. No perinephric stranding. BLADDER: Unremarkable. GASTROINTESTINAL TRACT: The small and large bowel are unremarkable. The appendix is unremarkable. ABDOMINAL WALL: There is a right inguinal hernia present which contains cecum as well as the appendix. A small left inguinal hernia is present containing only fat. LYMPH NODES: Normal. VASCULAR: Calcific atherosclerotic changes are present in the aorta and iliofemoral vessels. There is no evidence of an abdominal aortic aneurysm. There is mild stranding seen around the celiac with some tiny periceliac lymph nodes seen. The SMA and YUKI appear unremarkable. Exam is limited with lack of IV contrast. PELVIC VISCERA: There is mild BPH. Seminal vesicles appear normal. OSSEOUS STRUCTURES: Minimal degenerative changes are seen in the spine. CT/CT abdomen pelvis wo IV con IMPRESSION: 1. Right inguinal hernia containing cecum and appendix. 2. Small left inguinal hernia containing only fat. 3. Cholelithiasis without cholecystitis. 4. Mild BPH. 5. Mild stranding around the celiac with some tiny periceliac lymph nodes. This is a nonspecific finding. If there is any clinical concern for vasculitis, a CTA could be performed. Fleischner guidelines were followed. Electronically signed by: Sameer Abel MD 05/17/2024 09:55 AM EST RP
== END 2024-03-21 10:46 | disposition home or self-care (01) ==
LOC: HO.CT 10:45
PROVIDERS: PCP Internal Medicine; Visit Provider Internal Medicine
DX: K40.90 Unilateral inguinal hernia, without obstruction or gangrene, not specified as recurrent (principal)
CPT/HCPCS: 74176

== ENCOUNTER 2024-04-03 10:57 | Outpatient (AMB) | payer MEDICARE, BC, SELFPAY ==
--- NOTE | 2024-04-03 10:58 | A.OFFVIS_ITS ---
Vital Signs 04/03/24 11:04 Height 5 ft 10 in Weight 169 lb BMI 24.2 BP 157/78 H Blood Pressure Location Rt brachial Position Sitting Pulse 59 Intake Visit Reasons: Unilateral inguinal hernia Intake Note: Patient referred by pcp Dr. Jabier Blanco for Unilateral inguinal hernia. Present for 5m. Patient c/o: cramps, bulges out. Abd/pelvis CT: report pending 03-21-2024. Abd/pelvis US: 02-28-2024. Bronze Plater Required: No Allergies No Known Allergies Allergy (Verified 04/03/24 11:02) HPI Comments Details: Patient was events with a symptomatic right inguinal hernia. He has had this at least 5 months time. It is increasing in size, become more symptomatic. He would like to have repaired. Patient is quite active and does heavy lifting and workouts which is what he thinks caused the hernia. Otherwise patient tolerates a diet. Has regular bowel habits. Has no other GI issues or complaints. No prior surgical history. Chart was reviewed and patient evaluated [facility] Medical History Dyslipidemia Former smoker Other and unspecified hyperlipidemia Essential hypertension Encounter for monitoring sotalol therapy Surgical History History of colonoscopy Family History Father HTN (hypertension) Mother Cardiac pacemaker Brother HTN (hypertension) Sister HTN (hypertension) Social History Housing: House Alcohol intake: former Patient Tobacco Use Status: Former Tobacco user Tobacco use type: Cigarette e-Cigarette/Vaping Use: Never Used Second Hand Smoke Exposure: No service: Yes Current occupational status: retired Current occupational exposures/hazards: No Cognitive needs: No Hearing needs: No Vision needs: Yes Physical Exam Vital Signs: Last Vital Signs Pulse 59 04/03/24 11:04 BP 157/78 H 04/03/24 11:04 BMI result Body Mass Index 24.2 Chest Other: Chest breath sounds bilaterally, HS 1 in 2 GI Other: Patient was examined both supine and standing with Valsalva. Left groin negative. Genitalia within normal limits. Moderately sized reducible right inguinal hernia. Abdomen otherwise soft and benign. Assessment & Plan Assessment & Plan (1) Right inguinal hernia: Code(s): K40.90 - Unilateral inguinal hernia, without obstruction or gangrene, not specified as recurrent Category: Surgical Plan Risks, benefits, alternatives of right inguinal hernia open repair with mesh were reviewed with the patient and included but not limited to bleeding, infection, recurrence, numbness, pain, scarring the patient wished to proceed. All questions answered. Arrangements made for this. Coding Level of Care Code New Pt Level 5 (76845) Diagnoses Right inguinal hernia K40.90
[2024-04-03 11:04] VITALS: BP 157/78; PULSE 59; BMI 24.2
== END 2024-04-03 11:08 | disposition home or self-care (01) ==
PROVIDERS: PCP Internal Medicine; Referring Provider Internal Medicine; Visit Provider Surgery
DX: K40.90 Unilateral inguinal hernia, without obstruction or gangrene, not specified as recurrent (principal)
CPT/HCPCS: 99204

== ENCOUNTER → 2024-04-03 10:57 | Outpatient (BNVA) | payer MEDICARE, BC, SELFPAY | PROVIDERS: PCP Internal Medicine; Referring Provider Internal Medicine; Visit Provider Surgery | DX: K40.90 Unilateral inguinal hernia, without obstruction or gangrene, not specified as recurrent (principal) | CPT/HCPCS: 99202 ==

== ENCOUNTER 2024-04-19 10:24 | Day surgery (SDC) | payer MEDICARE, BC, SELFPAY ==
--- NOTE | 2024-04-18 18:02 | MHC.SHP ---
Pre-Procedural Eval Section A - 24 Hr Update-Section A only Date of Service: 04/19/24 The patient is an INPATIENT: No Changes since office visit: No Cold of Flu in the past 2 weeks, No New Medical Problems, No Changes in Medication and No Patient answered all questions Section B - Complete if H&P > 30 days Chief Complaint: Unilateral inguinal hernia, without obstruction or Allergies: Allergies Allergy/AdvReac Type Severity Reaction Status Date / Time No Known Allergies Allergy Verified 04/03/24 11:02 Review of Systems Sugical H&P ROS: Negative: Constitution, Cardiovascular, Respiratory, Neurological, Psychiatric, Hem-Onc, Allergic/Immunologic, Gastrointestinal, Genitourinary, Musculoskeletal, Integumentary, Endocrine and Eyes/Ears/Nose/Throat Exam Surgical H&P Exam: Normal: HEENT, Normal: Heart, Normal: Lungs, Normal: Extremities, Normal: Abdomen, Normal: Skin and Normal: Neurological Plan I have reviewed the history and physical and performed a pertinent physical examination on my patient. No changes have occurred unless specified. Time Spent With Patient Time: Total time managing care of this patient today ____ minutes.
[2024-04-19] VITALS (11 sets, daily range): BP systolic 114–140; BP diastolic 54–82; PULSE 45–77; RESP 14–18; TEMP 36.1–36.8; O2SAT 97–100; BMI 24.0
[2024-04-19] MEDS: Lactated Ringers 1,000 ML 100 ML IVCONT (10:55)
--- NOTE | 2024-04-19 11:30 | HO.ANESPROP2 ---
Documented by User: Christa Barajas NP 04/17/24 15:00 HPI - Anesthesia Eval Consult details Narrative: 68yo M for Right?Hernia Inguinal Reducible with mesh PMFSH Active Problems Active Problems: All Active Problems Erectile dysfunction (Acute) Right inguinal hernia (Acute) COVID-19 virus infection (Acute) Heart palpitations (Acute) Dyslipidemia (Acute) Adult general medical exam (Acute) Screening for prostate cancer (Acute) Cough (Acute) Former smoker (Acute) Other and unspecified hyperlipidemia (Acute) Essential hypertension (Acute) Precordial chest pain (Acute) Past Medical History Medical History Dyslipidemia Former smoker Other and unspecified hyperlipidemia Essential hypertension Encounter for monitoring sotalol therapy Family History Family History Father HTN (hypertension) Mother Cardiac pacemaker Brother HTN (hypertension) Sister HTN (hypertension) Surgical History Surgical History History of colonoscopy Social History Social History Housing: House Are you a primary point of care technician to a significant other at home: No Do you presently have visiting nurse or other home services: No Alcohol intake: former Patient Tobacco Use Status: Former Tobacco user Tobacco use type: Cigarette e-Cigarette/Vaping Use: Never Used Second Hand Smoke Exposure: No Have you been hit, kicked, punched, or otherwise hurt by someone within the past year? If so, by whom?: No Are you DNR?: No Advance Directives: No Advance Directives Information Provided: Yes Recently lost weight without trying: No Nutrition Risks: No Nutritional Risk service: Yes Current occupational status: retired Current occupational exposures/hazards: No Cognitive needs: No Hearing needs: No Vision needs: Yes Meds Allergies Allergy/AdvReac Type Severity Reaction Status Date / Time No Known Allergies Allergy Verified 04/19/24 10:43 Assessment and Plan Assessment Anesthesia Assessment: Chart Reviewed Documented by User: Serene Thomas DO 04/19/24 12:04 [facility] Past Medical History Medical History Dyslipidemia Former smoker Other and unspecified hyperlipidemia Essential hypertension Encounter for monitoring sotalol therapy Family History Family History Father HTN (hypertension) Mother Cardiac pacemaker Brother HTN (hypertension) Sister HTN (hypertension) Family history of problems with anesthesia: No Surgical History Surgical History History of colonoscopy History of Problems with Anesthesia: No Social History Social History Housing: House Are you a primary point of care technician to a significant other at home: No Do you presently have visiting nurse or other home services: No Alcohol intake: former Patient Tobacco Use Status: Former Tobacco user Tobacco use type: Cigarette e-Cigarette/Vaping Use: Never Used Second Hand Smoke Exposure: No Have you been hit, kicked, punched, or otherwise hurt by someone within the past year? If so, by whom?: No Are you DNR?: No Advance Directives: No Advance Directives Information Provided: Yes Recently lost weight without trying: No Nutrition Risks: No Nutritional Risk service: Yes Current occupational status: retired Current occupational exposures/hazards: No Cognitive needs: No Hearing needs: No Vision needs: Yes Meds Allergies Allergy/AdvReac Type Severity Reaction Status Date / Time No Known Allergies Allergy Verified 04/19/24 10:43 Exam Exam Date and Time: 04/19/24 1130 Height,Weight and Vital Signs: Height 5 ft 10 in Weight 75.75 kg Vital Signs Temperature 98.2 F 04/19/24 11:03 Pulse Rate 77 04/19/24 11:03 Respiratory Rate 18 04/19/24 11:03 Blood Pressure 136/82 04/19/24 11:03 Pulse Oximetry 97 04/19/24 11:03 Oxygen Delivery Method Room Air 04/19/24 11:03 Temperature 98.2 F 04/19/24 11:03 Pulse Rate 77 04/19/24 11:03 Respiratory Rate 18 04/19/24 11:03 Blood Pressure 136/82 04/19/24 11:03 Pulse Oximetry 97 04/19/24 11:03 Oxygen Delivery Method Room Air 04/19/24 11:03 Airway Mallampati Class: I TM Dist: >3cm Neck ROM: Full Loose/Missing/Broken Teeth: No (patient denies any loose or broken teeth) Heart: S1S2 Lungs: CTAB Assessment and Plan Assessment Anesthesia Assessment: Anesthesia Plan Discussed and Chart Reviewed Final Anesthetic Review Family History of Problems with Anesthesia: No History of Problems with Anesthesia: No NPO: Yes ASA Class: II Final Preanesthetic Review: No Changes in Pt Med Stat, Meds/Allgs Chart Reviewed, Consent Obtained/Reviewed and Anes Risks/Benef Reviewed Patient Risk: Low Procedure Risk: Low Anesthetic Plan Anesthetic Plan: MAC: and Agree w/ Assess. and Plan Disposition: Standard PACU
--- NOTE | 2024-04-19 12:31 | W.PM.OPN ---
Operative Note Operative Note Date of Service: 04/19/24 Narrative: Preoperative diagnosis: [] Symptomatic right inguinal hernia Postop diagnosis: [] The same Procedure [] open right inguinal herniorrhaphy with Bard mesh Surgeon: [] [employer] Operator: [] Pineda Type of Anesthesia: [] Mac Indication for surgery: [] Large indirect right inguinal hernia. No direct hernia. Findings: [] Patient brought to the operating room, placed on operative table supine position, after an adequate level of MAC anesthesia was induced with ilioinguinal block and local wound infiltration with 0.5% Marcaine/1% lidocaine, a small right para inguinal incision was made and carried down through skin, subcutaneous tissue, Donald's fascia. External oblique fibers were opened their direction with care to isolate and preserve the ilioinguinal nerve throughout the procedure. Spermatic cord was identified and retracted from the field. Exploration of the cord demonstrated a large indirect hernia sac which was from the cord and reduced. A Bard plug was placed in this defect and sutured inferiorly to the inguinal ligament, and superiorly to the transversalis fascia using interrupted 0 Ethibond suture. Grasped also covered the inguinal floor. At completion, graft was in good position with no gaps or tension. Wound was irrigated, secured hemostasis, and closed in the following manner; external oblique fascia was closed using running 2-0 Vicryl suture. Donald's fascia was reapproximated using interrupted 3-0 Vicryl suture. Interrupted inverted deep dermal 3-0 Vicryl sutures followed by running subcuticular 4-0 Vicryl sutures were placed. Steri-Strips and sterile dressings were applied. Sponge, needle, and instrument counts reported correct. Patient tolerated the procedure well and emerged from anesthesia stable condition. EBL minimal. Ipsilateral testicle was intrascrotal at completion.
[2024-04-19] MEDS: fentaNYL citrate/PF 100 MCG/2 ML VIAL 50 MCG IVPUSH ×3 (12:44→13:30)
[2024-04-19] MEDS: Acetaminophen 325 MG TABLET 650 MG PO (13:23)
[2024-04-19] MEDS: oxyCODONE HCl Immed Release 5 MG TABLET PO (13:41)
== END 2024-04-19 14:41 | disposition home or self-care (01) ==
PROVIDERS: PCP Internal Medicine; Visit Provider Surgery
PROC: (CPT 49505; principal; 2024-04-19 12:40)
DX: K40.90 Unilateral inguinal hernia, without obstruction or gangrene, not specified as recurrent (principal); I10 Essential (primary) hypertension; E78.5 Hyperlipidemia, unspecified; N52.9 Male erectile dysfunction, unspecified; R00.2 Palpitations; Z79.899 Other long term (current) drug therapy; Z87.891 Personal history of nicotine dependence
CPT/HCPCS: 49505; C1781; J0690; J1100; J2003; J2704; J3010

== ENCOUNTER → 2024-04-19 10:24 | Outpatient (BNV) | payer MEDICARE, BC, SELFPAY | PROVIDERS: PCP Internal Medicine; Visit Provider Surgery | DX: K40.90 Unilateral inguinal hernia, without obstruction or gangrene, not specified as recurrent (principal) | CPT/HCPCS: 49505 ==

== ENCOUNTER 2024-04-30 10:35 | Outpatient (AMB) | payer MEDICARE, BC, SELFPAY ==
--- NOTE | 2024-04-30 10:36 | MHC.OFFVIS ---
Intake Visit Reasons: S/P RIH w/mesh Intake Note: Patient here s/p RIH w/mesh. Reports incisions healing well. Patient c/o: no concerns. No longer taking rx pain meds. SX: 04-19-2024. Buttonhole Marker Required: No Accompanied by: Self / Same As Patient Allergies No Known Allergies Allergy (Verified 04/30/24 10:39) HPI Comments Details: Patient was status post right inguinal hernia repair. All things considered she is doing quite well. He has incisional discomfort is markedly improved. He is increasing his activity level. He is tolerating a diet. He is having regular bowel habits. [facility] Medical History Dyslipidemia Former smoker Other and unspecified hyperlipidemia Essential hypertension Encounter for monitoring sotalol therapy Surgical History (Updated 04/30/24 @ 10:51 by Abdoul Love MD) Right inguinal hernia (04/19/24) History of colonoscopy Family History Father HTN (hypertension) Mother Cardiac pacemaker Brother HTN (hypertension) Sister HTN (hypertension) Social History Housing: House Are you a primary nurse behavioral health care to a significant other at home: No Do you presently have visiting nurse or other home services: No Alcohol intake: former Patient Tobacco Use Status: Former Tobacco user Tobacco use type: Cigarette e-Cigarette/Vaping Use: Never Used Second Hand Smoke Exposure: No service: Yes Current occupational status: retired Current occupational exposures/hazards: No Cognitive needs: No Hearing needs: No Vision needs: Yes Physical Exam GI Other: Abdomen is soft. Incision clean dry and intact healing very well Assessment & Plan Assessment & Plan (1) Postop check: Code(s): Z09 - Encounter for follow-up examination after completed treatment for conditions other than malignant neoplasm Category: Surgical (2) Status post hernia repair: Code(s): Z98.890 - Other specified postprocedural states; Z87.19 - Personal history of other diseases of the digestive system Category: Surgical Plan Patient was been given local instructions including avoiding strenuous activities for the next 4-6 weeks and will otherwise follow-up p.r.n.. All questions answered Coding Level of Care Code Global (92238) Diagnoses Postop check Z09 Status post hernia repair Z98.890; Z87.19
== END 2024-04-30 10:49 | disposition home or self-care (01) ==
PROVIDERS: PCP Internal Medicine; Visit Provider Surgery
DX: Z09 Encounter for follow-up examination after completed treatment for conditions other than malignant neoplasm (principal); Z98.890 Other specified postprocedural states; Z87.19 Personal history of other diseases of the digestive system
CPT/HCPCS: 99024

== ENCOUNTER → 2024-04-30 10:35 | Outpatient (BNVA) | payer MEDICARE, BC, SELFPAY | PROVIDERS: PCP Internal Medicine; Visit Provider Surgery | DX: Z09 Encounter for follow-up examination after completed treatment for conditions other than malignant neoplasm (principal); Z87.19 Personal history of other diseases of the digestive system; Z98.890 Other specified postprocedural states | CPT/HCPCS: 99212 ==

== ENCOUNTER 2024-05-14 10:09 | Outpatient (AMB) | payer MEDICARE, BC, SELFPAY ==
--- NOTE | 2024-05-14 10:11 | A.OFFVIS_ITS ---
Vital Signs 05/14/24 10:17 Weight 169 lb BP 168/81 H Blood Pressure Location Rt brachial Position Sitting Pulse 94 Intake Visit Reasons: Pain in in surgical area Intake Note: Patient here c/o pain at surgical site. Hx: [place] on 04-19-2024. Reports taking 's Ibuprofen 800mg last night which helped. Print Graphic Designer Required: No Accompanied by: Self / Same As Patient Allergies No Known Allergies Allergy (Verified 05/14/24 10:17) HPI Comments Details: Patient presents for follow-up. He has roughly 3 weeks status post open right inguinal hernia repair. He had incisional discomfort which had markedly improved and now he thinks it has stagnated. Patient was otherwise doing relatively well. He is tolerating a diet. Having regular bowel habits. He is increasing his activity level. [facility], [facility] Medical History Dyslipidemia Former smoker Other and unspecified hyperlipidemia Essential hypertension Encounter for monitoring sotalol therapy Surgical History (Updated 05/14/24 @ 10:32 by Abdoul Love MD) Right inguinal hernia (04/19/24) History of colonoscopy Family History Father HTN (hypertension) Mother Cardiac pacemaker Brother HTN (hypertension) Sister HTN (hypertension) Social History Housing: House Are you a primary health care attorney to a significant other at home: No Do you presently have visiting nurse or other home services: No Alcohol intake: former Patient Tobacco Use Status: Former Tobacco user Tobacco use type: Cigarette e-Cigarette/Vaping Use: Never Used Second Hand Smoke Exposure: No service: Yes Current occupational status: retired Current occupational exposures/hazards: No Cognitive needs: No Hearing needs: No Vision needs: Yes Physical Exam Vital Signs: Last Vital Signs Pulse 94 05/14/24 10:17 BP 168/81 H 05/14/24 10:17 GI Other: Patient was examined both supine and standing with Valsalva. Abdomen is soft and benign . Incision is clean dry and intact healing well. No evidence of any infection or recurrence. Assessment & Plan Assessment & Plan (1) Postop check: Code(s): Z09 - Encounter for follow-up examination after completed treatment for conditions other than malignant neoplasm Category: Surgical Plan The present time, patient was reassured that he is not having any infection and recurrence. He has only roughly 3 weeks postop and this process needs anywhere from a few more weeks to a few more months to fully healed. At present, we will treat the patient conservatively. Should his symptoms progress or worsen, patient is instructed to contact me. He otherwise will follow-up p.r.n.. All questions answered. Coding Level of Care Code Global (17407) Diagnoses Postop check Z09
[2024-05-14 10:17] VITALS: BP 168/81; PULSE 94
== END 2024-05-14 10:25 | disposition home or self-care (01) ==
PROVIDERS: PCP Internal Medicine; Visit Provider Surgery
DX: Z09 Encounter for follow-up examination after completed treatment for conditions other than malignant neoplasm (principal)
CPT/HCPCS: 99024

== ENCOUNTER → 2024-05-14 10:09 | Outpatient (BNVA) | payer MEDICARE, BC, SELFPAY | PROVIDERS: PCP Internal Medicine; Visit Provider Surgery | DX: Z09 Encounter for follow-up examination after completed treatment for conditions other than malignant neoplasm (principal) | CPT/HCPCS: 99212 ==

== ENCOUNTER 2024-08-13 06:00 | Outpatient (REF) | payer MEDICARE, BC, SELFPAY ==
[2024-08-13 11:12] LABS: PSA,Total (Free>4and<10) 1.36 ng/mL (0.00-4.00)
[2024-08-13 11:13] LABS: Alanine Aminotransferase 24 U/L (0-40); Albumin Level 4.3 g/dL (3.5-5.0); Alkaline Phosphatase 63 U/L (39-117); Anion Gap 12 (12-20); Aspartate Amino Transferase 27 U/L (5-37); Bilirubin Total 1.6 mg/dL (0.0-1.0); Blood Urea Nitrogen 23 mg/dL (9-16); Calcium 9.3 mg/dL (8.4-10.2); Carbon Dioxide 28 mmol/L (22-29); Chloride 106 mmol/L (96-108); Cholesterol 135 mg/dL (<200); Estimated Glomerular Filt Rate > 60; Glucose Fasting 101 mg/dL (60-99); HDL Cholesterol 48 mg/dL (>40); LDL Cholesterol Calculated 71 mg/dL (<100); Potassium 3.8 mmol/L (3.3-5.1); Sodium 142 mmol/L (135-145); Total Protein 7.4 g/dL (6.5-8.0); Triglycerides 84 mg/dL (<150)
[2024-08-19 13:13] LABS: Testosterone, Free 68.1 pg/mL (30.0-135.0); Testosterone, Total 532 ng/dL (250-1100)
== END 2024-08-13 06:01 | disposition home or self-care (01) ==
LOC: HO.HMGCLDS 06:00
PROVIDERS: PCP Internal Medicine; Visit Provider Internal Medicine
DX: Z12.5 Encounter for screening for malignant neoplasm of prostate (principal); E78.5 Hyperlipidemia, unspecified; I10 Essential (primary) hypertension; N52.9 Male erectile dysfunction, unspecified
CPT/HCPCS: 36415; 80053; 80061; 84153; 84402; 84403

== ENCOUNTER 2024-09-14 07:49 | Day surgery (SDC) | payer MEDICARE, BC, SELFPAY ==
--- OUTSIDE RECORDS SUMMARY | 2024-08-20 12:27 | XMS_ITS | Patient Health Record ---
Author Organization [facility] Address [address] [place] [address] Care Team Providers Care Sales And Leasing Agent Name Role Phone Karly Barney Primary Care Provider Lawrence Boss Jr Unavailable [phone] Allergies No Known Allergies Reason For Referral No Information Medications Medication SIG (Take, Route, Frequency, Duration) Notes Start Date End Date Status Atorvastatin Calcium 10 MG TAKE 1 TABLET BY MOUTH DAILY Oral for 90 Days Active Lisinopril 10 MG TAKE 1 TABLET BY JENNIFER TH EVERY DAY Oral for 90 Days Active Immunizations Vaccine Route Administration Date Status Comme nts Influenza Unknown 02/11/2019 Administered Pneumococcal Unknown 09/15/2018 Administered Influenza Unknown 04/03/2024 Administered Social History Tobacco Use: Social History Observation [...] ast year? No Points 0 Interpretation Negative Problems Problem Type SNOMED Code ICD Code Onset Dates Problem Status W/U Status Risk Notes Problem [id number] Colon cancer screening (Z12.11) Active confirmed Vital Signs Temperature 98.6 degrees Fahrenheit 08/20/2024 Blood pressure diastolic 01 mm Hg 08/20/2024 Height 70 in 08/20/2024 Blood pressure systolic 001 mm Hg 08/20/2024 Weight 173.8 lbs 08/20/2024 BMI 24.93 kg/m2 08/20/2024 Encounters Encounter Location Date Provider Diagnosis [facility] [address] [place] [address] 08/20/2024 Lawrence Larson Jr Colon cancer screening Z12.11 Assessments Encounter Date Diagnosis (ICD Code) Assessment Notes Treatment Notes Treatment Clinical Notes Section Notes 08/20/2024 Colon cancer screening (ICD-10 - Z12.11) Colonoscopy material was printed Plan Of Treatment Pending Test Test Name Order Date Colonoscopy 08/20/2024 Future Test Test Name Order Date COLONOSCOPY 08/20/2024 Next Appt Details Provider Name:Lawrence caraballo Jr, 09/14/2024 10:00:00 AM, [address] [place] [address] , [place], [place], [phone], Insurance Providers Payer Name Payer Address Payer Phone Subscriber Number Group Number Insured Name Patient Relationship to Insured Coverage Start Date Coverage End Date MEDICARE OF [place] [address] [place] [address] [id number] LEIGHTON MALIN Self - patient is the insured [address] [facility] [address] [place], [place] [id number] LEIGHTON MALIN Self - patient is the insured Medical (General) History Medical History History ICD Code hyperlipidemia hypertension rapid heart rate Surgical History Surgery Date(Month/Year) hernia repair
--- OUTSIDE RECORDS SUMMARY | 2024-08-20 12:27 | XMS_ITS ---
Author Organization [facility] Address [address] [place] [address] Care Team Providers Care Publicity Manager Name Role Phone Karly Barney Primary Care [...] 08/20/2024 Encounters Encounter Location Date Provider Diagnosis [facility] [address] [place] [phone] 08/20/2024 Lawrence Larson Jr Colon cancer screening Z12.11 Assessments Encounter Date Diagnosis (ICD Code) Assessment Notes Treatment Notes Treatment Clinical Notes Section Notes 08/20/2024 Colon cancer screening (ICD-10 - Z12.11) Colonoscopy material was printed Plan Of Treatment Treatment Notes Assessment Notes Colon cancer screening Colonoscopy mater ial was printed Pending Test Test Name Order Date Colonoscopy 08/20/2024 Future Test Test Name Order Date COLONOSCOPY 08/20/2024 Next Appt Details Provider Name:Lawrence Lawson ilya , 09/14/2024 10:00:00 AM, [address] [place] [address], [phone], Progress Notes * MALINLEIGHTON ANNA DDOB:[birth year] (69 yo M)Acc No.[id number]:08/20/2024 Progress Notes Patient:?LEIGHTON MALIN Provider:?Lawrence Larson MD :1955???Age:69 Y???Sex:Male Thiago e:08/20/2024 Address:[address] [place], [place] [phone] Pcp:Karly Blanco Subjective: * Chief Complaints: * ???1. Patient presents today for a colon screening. * Medical History:?Hyperlipide papo, Hypertension, Rapid heart rate. * Surgical History:?hernia rep air . * Family History:?Father: dece ased.?Mother: .? no known hx of colon ca nor liver ds. * Social History:?Tobacco Use:?Tobacco Use/Smoking?Patient is a?former smoker,?When did you stop smoking??1972,?How long has it been since you last smoked??> 10 years.?Drugs/Alcohol:?Alcohol Screen?Did you have a drink containing alcohol in the past year??No,?Points?0,?Interpretation?Negative.?Miscellaneous:?Marital status: . Occupation: retired. * Medications:?Taking Lisinopr il 10 MG Tablet TAKE 1 TABLET BY MOUTH EVERY DAY Oral , Taking Atorvastatin Calcium 10 MG Tablet TAKE 1 TABLET BY MOUTH DAILY Oral , Discontinued Sotalol HCl , Discontinued Atorvastatin Calcium , Discontinued MiraLax (colon prep) 8.3 ounce ((238) grams mixed with Gatorade or Crystal Light orally begin at 5:00 p.m. the day before the procedure * Allergies:?N.K.D.A. Objective: * Vitals:?Wt:173.8lbs, Ht: 70 in, BMI:24.93Index, BP:001/01mm Hg, Temp:98.6, Wt- k.84. Assessment: * Assessment: 1.?Colon cancer screening - Z12.11 (Primary)??? Plan: * Treatment: * ?Procedure: COLONOSCOPY (Ordered for 08/20/2024) Notes: Colonoscopy material was printed?? * Preventive Medicine:? ??Counseling:?Care goal follow-up plan:?Above Normal BMI Follow-up?Dietary management education, guidance, and counseling,?BMI management provided?Yes.? ??Screenings:?Fall Risk Screening?Fall Risk Assessment:?No falls in the past year,?Screening:?No falls in the past year,?Assessment:?Not performed, no reason specified,?Plan of Care:?Not documented, no reason specified.? * * The named appointment provid er may or may not be the originator of this progress note, and it is not deemed complete until electronically signed by the appointment provider. Sign off status: Pending * Provider:?Lawrence Larson MD Date:?0 08/20/2024 Generated for Sydney guy/Archana/Sonamitting on:?08/20/2024 12:27 PM EDT
[2024-09-12 12:18] VITALS: BMI 24.4
--- NOTE | 2024-09-13 09:38 | P.CONAN_ITS ---
Documented by User: Christa Barajas NP 09/13/24 09:38 HPI - Anesthesia Eval Consult details Narrative: 69yo M for Colonoscopy s/p RIH repair 04/2024 with MAC PMFSH Active Problems Active Problems: All Active Problems Postop check (Acute) Status post hernia repair (Acute) Postop check (Acute) Erectile dysfunction (Acute) Right inguinal hernia (Acute 04/19/24) COVID-19 virus infection (Acute) Adult general medical exam (Acute) Screening for prostate cancer (Acute) Cough (Acute) Heart palpitations (Acute) Precordial chest pain (Acute) Dyslipidemia (Acute) Former smoker (Acute) Other and unspecified hyperlipidemia (Acute) Essential hypertension (Acute) Past Medical History Medical History (Updated 09/12/24 @ 12:16 by Erika Persaud RN) Dyslipidemia Former smoker Other and unspecified hyperlipidemia Essential hypertension Family History Family History Father HTN (hypertension) Mother Cardiac pacemaker Brother HTN (hypertension) Sister HTN (hypertension) Family history of problems with anesthesia: No Surgical History Surgical History (Updated 09/12/24 @ 12:12 by Erika Persaud RN) Hx of right inguinal hernia repair History of colonoscopy History of Problems with Anesthesia: No Social History Social History Housing: House Are you a primary infant caregiver to a significant other at home: No Do you presently have visiting nurse or other home services: No Alcohol intake: former Patient Tobacco Use Status: Former Tobacco user Tobacco use type: Cigarette e-Cigarette/Vaping Use: Never Used Second Hand Smoke Exposure: No Have you been hit, kicked, punched, or otherwise hurt by someone within the past year? If so, by whom?: No Are you DNR?: No Advance Directives: No Advance Directives Information Provided: Yes Poor oral hygiene: No service: Yes Current occupational status: retired Current occupational exposures/hazards: No Cognitive needs: No Hearing needs: No Vision needs: Yes Meds Allergies Allergy/AdvReac Type Severity Reaction Status Date / Time No Known Allergies Allergy Verified 05/14/24 10:17 Exam Height,Weight and Vital Signs: Height 5 ft 10 in Weight 77.111 kg Assessment and Plan Assessment Anesthesia Assessment: Chart Reviewed Final Anesthetic Review Family History of Problems with Anesthesia: No History of Problems with Anesthesia: No Documented by User: Nat Izaguirre MD 09/14/24 08:03 [facility] Past Medical History Medical History (Updated 09/12/24 @ 12:16 by Erika Persaud RN) Dyslipidemia Former smoker Other and unspecified hyperlipidemia Essential hypertension Family History Family History Father HTN (hypertension) Mother Cardiac pacemaker Brother HTN (hypertension) Sister HTN (hypertension) Surgical History Surgical History (Updated 09/12/24 @ 12:12 by Erika Persaud RN) Hx of right inguinal hernia repair History of colonoscopy Social History Social History Housing: House Are you a primary infant caregiver to a significant other at home: No Do you presently have visiting nurse or other home services: No Alcohol intake: former Patient Tobacco Use Status: Former Tobacco user Tobacco use type: Cigarette e-Cigarette/Vaping Use: Never Used Second Hand Smoke Exposure: No Have you been hit, kicked, punched, or otherwise hurt by someone within the past year? If so, by whom?: No Are you DNR?: No Advance Directives: No Advance Directives Information Provided: Yes Poor oral hygiene: No service: Yes Current occupational status: retired Current occupational exposures/hazards: No Cognitive needs: No Hearing needs: No Vision needs: Yes Meds Allergies Allergy/AdvReac Type Severity Reaction Status Date / Time No Known Allergies Allergy Verified 05/14/24 10:17 Exam Airway Mallampati Class: I TM Dist: >3cm Neck ROM: Full Heart: rrr Lungs: cta Assessment and Plan Assessment Anesthesia Assessment: Anesthesia Plan Discussed Final Anesthetic Review NPO: Yes ASA Class: II Final Preanesthetic Review: No Changes in Pt Med Stat, Meds/Allgs Chart Reviewed and Consent Obtained/Reviewed Patient Risk: Low Procedure Risk: Low Anesthetic Plan Anesthetic Plan: MAC: Disposition: Standard PACU
[2024-09-14 07:51] VITALS: BP 144/82; PULSE 86; RESP 18; TEMP 36.1; O2SAT 98
--- NOTE | 2024-09-14 08:07 | P.HPSUR_ITS ---
Pre-Procedural Eval Section A - 24 Hr Update-Section A only Date of Service: 09/14/24 Section B - Complete if H&P > 30 days Chief Complaint: Encounter for screening for malignant neoplasm of Details of Present Illness: see H*P no changes Relevant Family History (Specify if Yes): No Relevant Social History: None Present Medications: see Short Stay Collaborative assessment Medical History: No relevant PMH History of Previous Operations: No relevant previous surgery Allergies: Allergies Allergy/AdvReac Type Severity Reaction Status Date / Time No Known Allergies Allergy Verified 05/14/24 10:17 Review of Systems Sugical H&P ROS: Negative: Constitution, Cardiovascular, Respiratory, Neurological, Psychiatric, Hem-Onc, Allergic/Immunologic, Gastrointestinal, Genitourinary, Musculoskeletal, Integumentary, Endocrine and Eyes/Ears/No se/Throat Exam Surgical H&P Exam: Normal: HEENT, Normal: Heart, Normal: Lungs, Normal: Extremities, Normal: Abdomen, Normal: Skin and Normal: Neurological Plan Diagnosis/Plan: Unchanged I have reviewed the history and physical and performed a pertinent physical examination on my patient. No changes have occurred unless specified. Time Spent With Patient Time: Total time managing care of this patient today ____ minutes.
[2024-09-14] MEDS: Lactated Ringers 1,000 ML 100 ML IVCONT (08:09)
[2024-09-14 08:41] VITALS: BP 107/59; PULSE 69; RESP 16; TEMP 36.6; O2SAT 66
--- NOTE | 2024-09-14 08:43 | P.BOP_ITS ---
Brief Operative Note Date of Service: 09/14/24 Pre-op diagnosis: screening Post-op diagnosis: same Procedure: colonoscopy Surgeon: Lawrence Larson MD Anesthesia: MAC Was an Tongue And Quarter Stitcher used for this Procedure?: No Estimated blood loss (mL): 0 Pathology: none sent Condition: stable Disposition: PACU
[2024-09-14 08:56] VITALS: BP 107/68; PULSE 73; RESP 16; TEMP 36.6; O2SAT 96
--- NOTE | 2024-09-14 09:13 | OP_ITS ---
DATE OF SERVICE: 09/14/2024 SURGEON: Lawrence Larson MD INDICATIONS: Colon cancer screening and prior history of adenomatous colon polyps. PREOPERATIVE DIAGNOSIS: POSTOPERATIVE DIAGNOSIS: PROCEDURE PERFORMED: Colonoscopy to terminal ileum. ESTIMATED BLOOD LOSS: COMPLICATIONS: ANESTHESIA: Monitored anesthesia care. ASSISTANTS: SPECIMENS: DESCRIPTION OF PROCEDURE: History and physical performed. The risks and benefits of the procedure were explained to the patient. Informed consent was obtained. The patient was placed in the left lateral decubitus position. A digital rectal exam was performed and was found to be normal. The Olympus pediatric videocolonoscope was introduced into the rectum and advanced to the cecum. The cecum was identified by transillumination, palpation, and identification of ileocecal valve. Examination was performed. The scope was removed. He tolerated the procedure well and was returned to recovery area in stable condition. FINDINGS: The terminal ileum was examined and appeared normal. The visualized colonic mucosa was normal. The quality of the prep was good. No polyps were identified. Retroflexed examination showed some small internal hemorrhoids. IMPRESSION: Normal colonoscopy. RECOMMENDATION: 1. Follow up as needed. 2. Repeat colonoscopy is recommended in 10 years for average-risk individuals. This is optional based on age. MD TRACIE Castellanos/DORISL / [id number]
== END 2024-09-14 10:10 | disposition home or self-care (01) ==
PROVIDERS: PCP Internal Medicine; Visit Provider Internal Medicine Gastroenterology
PROC: 0DJD8ZZ Inspection of Lower Intestinal Tract, Via Natural or Artificial Opening Endoscopic (ICD-10-PCS; CPT 45378; principal; 2024-09-14 10:00)
DX: Z12.11 Encounter for screening for malignant neoplasm of colon (principal); K64.8 Other hemorrhoids; Z86.0101 Personal history of adenomatous and serrated colon polyps; I10 Essential (primary) hypertension; E78.5 Hyperlipidemia, unspecified; Z87.891 Personal history of nicotine dependence; Z79.02 Long term (current) use of antithrombotics/antiplatelets; Z79.899 Other long term (current) drug therapy
CPT/HCPCS: G0105; J2003; J2704

== ENCOUNTER 2024-11-27 08:00 | Outpatient (AMB) | payer MEDICARE, BC, SELFPAY ==
--- OUTSIDE RECORDS SUMMARY | 2024-11-27 08:04 | XMS_ITS ---
Author Organization [facility] Address [address] [place] [address] Care Team Providers Care Public Works Inspector Name Role Phone Karly Barney Primary Care Provider UnavailLawrence Hollingsworth Jr [phone] Allergies No Known Allergies REASON FOR VISIT [...] 08/20/2024 Encounters Encounter Location Date Provider Diagnosis [facility] [address] [place] [address] 08/20/2024 Lawrence Larson Jr Colon cancer screening [...] Follow Up: prn, Reason: Progress Notes * MALIN LEIGHTON DDOB:[birth year] (69 yo M)Acc No.[id number]:08/20/2024 Progress Notes Patient:?MALIN LEIGHTON Jaylan Provider:?Lawrence Larson MD :1955???Age:69 Y???Sex:Male Thiago e:08/20/2024 Address:[address] [place], [place] [phone] Pcp:Karly Blanco Subjective: * Chief Complaints: * ???1. Patient presents today for a colon screening. * HPI: ???New symptom(s):? The patient is a pleasant 69-year-old man seen today in consultation. He has a history of colon polyps and last underwent colonoscopy in July 2019. This showed 2 tubular adenomas. Follow-up in 5 years is recommended. He has no complaints of rectal bleeding or change in his bowel habits. Weight and appetite have been stable. * ROS:?General/Constitutional:?Change in appetite?denies.?Fatigue?denies.?ENT:?Patient denies?difficulty swallowing.?Respiratory:?Patient denies?shortness of breath.?Cardiovascular:?Patient denies?chest pain.?Gastrointestinal:?Comments?See HPI for details.?Genitourinary:?Difficulty urinating?denies.?Incontinence?denies.?Musculoskeletal:?Patient denies?muscle aches.?Skin:?Patient denies?pruritis.?Neurologic:?Patient denies?low back pain.?Psychiatric:?Patient denies?mental or physical abuse.? * Medical History:?Hyperlipide papo, Hypertension, Palpitations. * Surgical History:?Right ingu inal herniorrhaphy 05/06 . * Family History:?Father: dece ased.?Mother: .? no known hx of colon ca nor liver ds. * Social History:?Tobacco Use:?Tobacco Use/Smoking?Patient is a?former smoker,?When did you stop smoking??1973,?How long has it been since you last [...] in, BMI:24.93Index, BP:001/01mm Hg, Temp:98.6, Wt- k.84. * Examination: ???General Examination: ?GENERAL APPEARANCE:?in no acute distress.?HEAD:?normocephalic.?EYES:?sclera non-icteric.?ORAL CAVITY:?mucosa moist.?NECK/THYROID:?no lymphadenopathy.?SKIN:?anicteric.?HEART:?S1, S2 normal, no murmurs.?LUNGS:?clear to auscultation bilaterally.?CHEST:?normal shape and expansion.?ABDOMEN:?soft, nontender, nondistended, bowel sounds present, no organomegaly .?EXTREMITIES:?no clubbing, cyanosis, or edema.?PSYCH:?cognitive function intact.? Assessment: * Assessment: 1.?Colon cancer screening - Z12.11 (Primary)??? We discussed colonoscopy tod ay. We discussed risks and benefits of the procedure today. He understands these and agrees to proceed. This will be scheduled at his convenience. Plan: * Treatment: * ?Procedure: COLONOSCOPY (Ordered for 08/20/2024) Notes: Colonoscopy material was printed, Colonoscopy discharge material was printed?? * Preventive Medicine:? ??Counseling:?Care goal follow-up plan:?Above Normal BMI Follow-up?Dietary management education, guidance, and counseling,?BMI management provided?Yes.? ??Screenings:?Fall Risk Screening?Fall Risk Assessment:?No falls in the past year,?Screening:?No falls in the past year,?Assessment:?Not performed, no reason specified,?Plan of Care:?Not documented, no reason specified.? * Follow Up:?prn * * Sign off status: Completed true * Provider:?Lawrence Larson MD Date:?0 08/20/2024 Generated for Sydney guy/Archana/eTransmitting on:?11/27/2024 08:04 AM EDT History and Physical Notes * [...]
--- NOTE | 2024-11-27 08:16 | A.OFFVIS_ITS ---
Vital Signs 11/27/24 08:18 Height 5 ft 10 in Weight 170 lb 10.205 oz BMI 24.5 BP 134/60 Blood Pressure Location Lt brachial Position Sitting Pulse 63 Pulse Source Monitor Intake Visit Reasons: 2 year fu Waterproof Bag Cutting Machine Operator Required: No Accompanied by: Self / Same As Patient Allergies No Known Allergies Allergy (Verified 05/14/24 10:17) Medication List - Last Reconciled 11/27/24 by Niko Ribeiro MD atorvastatin 10 mg PO DAILY lisinopril 10 mg PO DAILY tadalafil 20 mg PO DAILY PRN 30 days HPI Comments Details: Gato returns for follow-up. Previous patient of Dr. Brink. He was on long- term sotalol although he had no atrial fibrillation or any other major arrhythmias. After he switched his care to us, we stopped it. Since last seen, he states he is actually doing very well. He has got absolutely no cardiac symptoms like angina or shortness of breath or palpitations or in fact anything cardiac related. Physically active with no limitations whatsoever. Exercise The patient regularly uses a StairMaster, performing 15 minutes of exercise gillian to walking 20 flights of stairs. 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 Reports no symptoms related to exercise. [facility] Medical History Dyslipidemia Former smoker Other and unspecified hyperlipidemia Essential hypertension Surgical History Hx of right inguinal hernia repair History of colonoscopy Family History Father HTN (hypertension) Mother Cardiac pacemaker Brother HTN (hypertension) Sister HTN (hypertension) Social History Housing: House Are you a primary child care counselor to a significant other at home: No Do you presently have visiting nurse or other home services: No Alcohol intake: former Patient Tobacco Use Status: Former Tobacco user Tobacco use type: Cigarette e-Cigarette/Vaping Use: Never Used Second Hand Smoke Exposure: No service: Yes Current occupational status: retired Current occupational exposures/hazards: No Cognitive needs: No Hearing needs: No Vision needs: Yes Review of Systems Const Denies chills, Denies fatigue, Denies fever(s), Denies frequent falls, Denies weakness, Denies weight gain and Denies weight loss ENT Denies dizziness Card Denies chest pain, Denies leg edema, Denies lightheadedness, Denies palpitations, Denies dyspnea and Denies dyspnea on exertion Resp Denies cough, Denies dyspnea and Denies dyspnea on exertion GI Denies hematochezia Musc Denies abnormal gait, Denies muscle weakness, Denies numbness, Denies radiating pain into limb and Denies tingling Neuro Denies abnormal gait, Denies dizziness, Denies frequent falls, Denies numbness, Denies tingling and Denies weakness Endo Denies fatigue and Denies palpitations Physical Exam Vital Signs: Last Vital Signs Pulse 63 11/27/24 08:18 BP 134/60 11/27/24 08:18 BMI result Body Mass Index 24.5 Const General: comfortable and no acute distress Orientation/consciousness: patient oriented x3 HEENT Other: Unremarkable Head: Yes normal to inspection Neck Neck: Yes normal visual inspection Chest Chest palpation & inspection: normal inspection of the chest Resp Auscultation: clear to auscultation bilaterally Cardio Palpation: normal PMI Heart sounds: S1 normal heart sound present, S2 normal heart sound present, no gallops, no murmurs and no rubs GI Palpation (GI): Soft to palpation Back/Spine/Pelvis Other: unremarkable Skin General skin exam: no rashes or lesions noted Neuro General: patient oriented x3 Extrem General: Yes normal to inspection Psych Mental Status: mental status grossly normal Office Procedures EKG Details: EKG with underlying sinus rhythm at 63/Min; no ischemic changes; [place] [address]-[id number], Complete Assessment & Plan Assessment & Plan (1) Heart palpitations: Code(s): R00.2 - Palpitations Category: Medical Plan: Off sotalol as there was no evidence of atrial fibrillation or other major arrhythmias. Previous intolerance to metoprolol, verapamil, diltiazem. In the absence of any palpitations or other documented arrhythmias, not on any medications. (2) Essential hypertension: Code(s): I10 - Essential (primary) hypertension Category: Medical Plan: Stable. No changes. (3) Other and unspecified hyperlipidemia: Code(s): E78.5 - Hyperlipidemia, unspecified Category: Medical Plan: On statins. Last LDL 71 mg/dL. Plan Discussion Notes During our visit, I confirmed the patient's current good cardiovascular health, with no recent arrhythmias. Discussed the benefits of maintaining his current exercise schedule and highlighted his achieved fitness level as significant for heart health. We emphasized that physical activity should be consistent, given his history. I clarified that scheduling a visit every few years or as symptoms arise is appropriate. The patient was informed that there are no immediate issues regarded with recurrence of his prior symptoms and the approach would be to reconnect as needed. Patient was informed and verbally consented to the use of an ambient scribe for clinic note documentation during this visit. Patient Instructions: - Continue regular use of the StairMaster or cardiovascular activities. - Watch for any new episodes of palpitations. - Maintain an active lifestyle to support cardiovascular health. - Contact me if any symptoms recur or for urgent matters. - Schedule follow-ups as desired or needed for any changes. Coding Level of Care Code Est Pt Level 3 (95192) Diagnoses Heart palpitations R00.2 Essential hypertension I10 Other and unspecified hyperlipidemia E78.5 CPT Codes EKG - CPT: 25464-Riuvwfsaytahxqhvs, Complete ([id number])
[2024-11-27 08:18] VITALS: BP 134/60; PULSE 63; BMI 24.5
== END 2024-11-27 08:34 | disposition home or self-care (01) ==
LOC: HO.HCS 08:01
PROVIDERS: PCP Internal Medicine; Visit Provider Internal Medicine
DX: R00.2 Palpitations (principal); I10 Essential (primary) hypertension; E78.5 Hyperlipidemia, unspecified
CPT/HCPCS: 93010; 99213

== ENCOUNTER → 2024-11-27 08:00 | Outpatient (BNVA) | payer MEDICARE, BC, SELFPAY | PROVIDERS: PCP Internal Medicine; Visit Provider Internal Medicine | DX: R00.2 Palpitations (principal); I10 Essential (primary) hypertension; E78.5 Hyperlipidemia, unspecified | CPT/HCPCS: 93005; 99212 ==

== ENCOUNTER 2024-11-29 08:16 | Outpatient (AMB) | payer MEDICARE, BC, SELFPAY ==
--- OUTSIDE RECORDS SUMMARY | 2024-08-20 06:00 | XMS_ITS ---
Author Organization [facility] Address [address] [place] [phone] Care Team Providers Care Home Theater Expert Name Role Phone Karly Barney Primary Care Provider UnavailLawrence Hollingsworth Jr Allergies No Known Allergies REASON FOR VISIT Patient presents today for a colon screening Medications Medication SIG (Take, Route, Frequency, Duration) Notes Start Date End Date Status Atorvastatin Calcium 10 MG TAKE 1 TABLET BY MOUTH DAILY Oral for 90 Days Active Lisinopril 10 MG TAKE 1 TABLET BY JENNIFER TH EVERY DAY Oral for 90 Days Active Social History Tobacco Use: Social History Observation Description Date Details (start date - stop date) Former Smoker NA - NA Tobacco Use/Smoking Question Answer Notes Patient is a former smoker When did you stop smoking? 1973 How long has it been since you last smoked? > 10 years Alcohol Screen Question Answer Notes Did you have a drink containing alcohol in the p ast year? No Points 0 Interpretation Negative Vital Signs Temperature 98.6 degrees Fahrenheit 08/21/19 25 Blood pressure systolic 001 mm Hg 08/21/19 25 Blood pressure diastolic 01 mm Hg 025 Height 70 in 08/20/2024 Weight 173.8 lbs 08/20/2024 BMI 24.93 kg/m2 08/20/2024 Encounters Encounter Location Date Provider Diagnosis [facility] [address] [place] [phone] 08/20/2024 Lawrence Larson Jr Colon cancer screening Z12.11 Assessments Encounter Date Diagnosis (ICD Code) Assessment Notes Treatment Notes Treatment Clinical Notes Section Notes 08/20/2024 Colon cancer screening (ICD-10 - Z12.11) Colonoscopy material was printed, Colonoscopy discharge material was printed We discussed colonoscopy today. We discussed risks and benefits of the procedure today. He understands these and agrees to proceed. This will be scheduled at his convenience. Plan Of Treatment Treatment Notes Assessment Notes Colon cancer screening Colonoscopy mater ial was printed, Colonoscopy discharge material was printed Pending Test Test Name Order Date Colonoscopy 08/20/2024 Future Test Test Name Order Date COLONOSCOPY 08/20/2024 Next Appt Details Follow Up: prn, Reason: Progress Notes * LEIGHTON MALIN DDOB:[birth year] (69 yo M)Acc No.[id number]:08/20/2024 Progress Notes Patient: LEIGHTON DAVID Provider: Edinson Larson MD :1955 A ge:69 Y S ex:Male Date:08/20/2024 Address:[address] [place], [place] [id number] Pcp:Karly Blanco Subjective: * Chief Complaints: * 1 . Patient presents today for a colon screening. * HPI: N ew symptom(s): The patient is a pleasant 69-year-old man seen today in consultation. He has a history of colon polyps and last underwent colonoscopy in July 2019. This showed 2 tubular adenomas. Follow-up in 5 years is recommended. He has no complaints of rectal bleeding or change in his bowel habits. Weight and appetite have been stable. * ROS: G eneral/Constitutional: Change in appetite d enies. F atigue d enies. ? E NT: Patient denies d ifficulty swallowing. R espiratory: Patient denies s hortness of breath. C ardiovascular: Patient denies c hest pain. G astrointestinal: Comments S [facility] for details. G enitourinary: Difficulty urinating d enies. I ncontinence d enies. M usculoskeletal: Patient denies m uscle aches. S kin: Patient denies p ruritis. N eurologic: Patient denies l ow back pain. P sychiatric: Patient denies m ental or physical abuse. * Medical History: H yperlipidemia, Hypertension, Palpitations. * Surgical History: R ight inguinal herniorrhaphy 05/06 . * Family History: F ather: . M other: . no known hx of colon ca nor liver ds. * Social History: T obacco Use: T obacco Use/Smoking P atient is a f ormer smoker, W hen did you stop smoking??1972, H ow long has it been since you last smoked? > 10 years. D rugs/Alcohol: A lcohol Screen D id you have a drink containing alcohol in the past year? N o, P oints 0 , I nterpretation N egative. M iscellaneous: M arital status: . Occupation: retired. * Medications: T aking Lisinopril 10 MG Tablet TAKE 1 TABLET BY MOUTH EVERY DAY Oral , Taking Atorvastatin Calcium 10 MG Tablet TAKE 1 TABLET BY MOUTH DAILY Oral , Discontinued Sotalol HCl , Discontinued Atorvastatin Calcium , Discontinued MiraLax (colon prep) 8.3 ounce ((238) grams mixed with Gatorade or Crystal Light orally begin at 5:00 p.m. the day before the procedure * Allergies: N .K.D.A. Objective: * Vitals: W t:173.8lbs, Ht: 70 in, BMI:24.93Index, BP:001/01mm Hg, Temp:98.6, Wt-k.84. * Examination: G eneral Examination: GENERAL APPEARANCE: i n no acute distress. HEAD: n ormocephalic. EYES: s clera non-icteric. ORAL CAVITY: m ucosa moist. NECK/THYROID: n o lymphadenopathy. SKIN: a nicteric. HEART: S 1, S2 normal, no murmurs. LUNGS: c lear to auscultation bilaterally. CHEST: n ormal shape and expansion. ABDOMEN: s oft, nontender, nondistended, bowel sounds present, no organomegaly . EXTREMITIES: n o clubbing, cyanosis, or edema. PSYCH: c ognitive function intact. Assessment: * Assessment: 1. C olon cancer screening - Z12.11 (Primary) We discussed colonoscopy tod ay. We discussed risks and benefits of the procedure today. He understands these and agrees to proceed. This will be scheduled at his convenience. Plan: * Treatment: * ?Procedure: COLONOSCOPY (Ordered for 08/20/2024) Notes: Colonoscopy material was printed, Colonoscopy discharge material was printed?? * Preventive Medicine: Counseling: C are goal follow-up plan: A nelsy Normal BMI Follow-up D ietary management education, guidance, and counseling, B SC management provided Y es. Screenings: F all Risk Screening F all Risk Assessment: N o falls in the past year, S creening: N o falls in the past year, A ssessment: N ot performed, no reason specified, P [place] of Care: N ot documented, no reason specified. * Follow Up: p rn * * Sign off status: Completed true * Provider: Edinson Larson MD Date: 08/20/2024 Generated for Sydney guy/Archana/Sonamitting on: 11/29/2024 08:21 AM EDT History and Physical Notes * HPI (History of Present Illness) Category Sub-Category Detail Notes Category Not es New symptom(s) The patient i s a pleasant 69-year-old man seen today in consultation. He has a history of colon polyps and last underwent colonoscopy in July 2019. This showed 2 tubular adenomas. Follow-up in 5 years is recommended. He has no complaints of rectal bleeding or change in his bowel habits. Weight and appetite have been stable. Examination Category Sub-Category Detail Notes Category Not es General Examination GENERAL APPEARANCE: in no acute di stress HEAD: normocephalic EYES: sclera non-icteric NECK/THYROID: no lymphadenopathy HEART: S1, S2 normal, no mu rmurs CHEST: normal shape and exp ansion LUNGS: clear to auscultatio n bilaterally ABDOMEN: soft, nontender, non distended, bowel sounds present, no organomegaly SKIN: anicteric EXTREMITIES: no clubbing, cyanosi s, or edema PSYCH: cognitive function i ntact ORAL CAVITY: mucosa moist
--- NOTE | 2024-11-29 08:29 | A.OFFPC_ITS ---
Vital Signs 11/29/24 08:30 Height 5 ft 10 in Weight 169 lb BMI 24.2 BP 138/70 Blood Pressure Location Lt brachial Position Sitting Intake Visit Reasons: PE Intake Note: Patient here for a physical exam Nursing Care Partner Required: No Accompanied by: Self / Same As Patient Allergies No Known Allergies Allergy (Verified 11/29/24 08:39) Medication List - Last Reconciled 11/29/24 by Karly Blanco MD atorvastatin 10 mg PO DAILY lisinopril 10 mg PO DAILY Tobacco use date assessed: 11/29/24 Fall risk assessment: No Falls in past year Last assessed Fall Risk: 11/29/24 Dental Screening Dental Screen Date: 11/29/24 Did you have a dental visit in the last 12 months?: Yes Did you have a dental problem in the last 6 months where you did not have access to dental care?: No Was dental information given to patient?: Patient has dentist HPI HPI Comments History of Present Illness Details The patient is a 69-year-old male presenting for a routine physical examination and health maintenance. He has a history of hyperlipidemia, managed with atorvastatin 10 mg, which has resulted in excellent cholesterol levels. The patient also has hypertension, controlled with lisinopril 10 mg, with current blood pressure readings being excellent. The patient underwent a right inguinal hernia repair last year, with no reported complications since the surgery. He had a colonoscopy in September, which was normal, and he is up-to-date with his vaccinations, including pneumonia and tetanus. The patient has a history of skin cancer diagnosed at age 31, and he regularly visits a fish hatchery assistant every six months for monitoring. He has been advised to use sunscreen regularly due to the presence of sunspots. The patient reports a fasting blood sugar level of 101 mg/dL, indicating prediabetes, and he is advised to monitor this with repeat fasting labs in six months. He has a BMI of 24.2, which is considered normal, and he is encouraged to maintain his current weight. - Colonoscopy performed in September, result s normal - Vaccinations: Pneumonia and tetanus up -to-date - Dermatology follow-up every six months for skin cancer monitoring - Sunscreen use advised due to sunspots - Repeat fasting labs in six months to areli onitor blood sugar [facility] Medical History (Updated 11/29/24 @ 10:43 by Karly Blanco MD) Dyslipidemia Former smoker Other and unspecified hyperlipidemia Essential hypertension Surgical History Hx of right inguinal hernia repair History of colonoscopy Family History Father HTN (hypertension) Mother Cardiac pacemaker Brother HTN (hypertension) Sister HTN (hypertension) Social History Housing: House Are you a primary manager medicare to a significant other at home: No Do you presently have visiting nurse or other home services: No Alcohol intake: former Patient Tobacco Use Status: Former Tobacco user Tobacco use type: Cigarette e-Cigarette/Vaping Use: Never Used Second Hand Smoke Exposure: No service: Yes Current occupational status: retired Current occupational exposures/hazards: No Cognitive needs: No Hearing needs: No Vision needs: Yes Questionnaire PHQ-9 Over the last 2 weeks, how often have you been bothered by any of the following problems? 1. Little interest or pleasure in doing things: not at all 2. Feeling down, depressed, or hopeless: not at all 3. Trouble falling or staying asleep, or sleeping too much: not at all 4. Feeling tired or having little energy: not at all 5. Poor appetite or overeating: not at all 6. Feeling bad about yourself - or that you are a failure or have let yourself or your family down: not at all 7. Trouble concentrating on things, such as reading the newspaper or watching television: not at all 8. Moving or speaking so slowly that other people could have noticed. Or the opposite - being so fidgety or restless that you have been moving around a lot more than usual: not at all 9. Thoughts that you would be better off or of hurting yourself in some w ay: not at all Total score: 0 Depression Screening Interpretation: Negative Depression Screening Done: Yes 78514 - PHQ-9 Billing: Yes Source: Developed by Drs. Phill Lugo, Christine Lopez, Michele Melgar and colleagues, with an educational josefina from [employer]. Thrive Questionnaire Date Thrive assessed: 11/22/24 I am a: Patient What is your living situation today?: I have a steady place to live Within the past 12 months, did the food you bought not last and you didn't have the money to get more?: Never true Within the past 12 months, did you worry whether your food would run out before you got money to buy more?: Never true Do you have trouble paying for medicines?: No Do you have trouble getting transportation to medical appointments?: No Do you have trouble paying your heating and electricity bill?: No Do you have trouble taking care of your child, family member or friend?: No Do you have trouble with day-to-day activities such as bathing, preparing meals, shopping, managing finances, etc.?: No Are you currently unemployed and looking for a job?: No Are you interested in more education?: No Please select the resources that you would like help with: None Currently or been in a relationship where the following occur: No concerns reported THRIVE Score: 0 AUDIT C Alcohol Use Questionnaire (AUDIT-C) 1. How often do you have a drink containing alcohol?: Never Total Score: 0 SALOME-7 AMB Questionnaire SALOME-7 Date SALOME - 7 assessed: 11/29/24 Feeling nervous, anxious, or on edge: 0 = Not at all Not being able to stop or control worryin = Not at all Worrying too much about different things: 0 = Not at all Trouble relaxin = Not at all Being so restless that it is hard to sit still: 0 = Not at all Becoming easily annoyed or irritable: 0 = Not at all Feeling afraid as if something awful might happen: 0 = Not at all Total SALOME-7 score (0-4 normal; 5-9 mild; 10-14 moderate; 15-21 severe): 0 Source: Developed by Drs. Phill Lugo, Christine Lopez, Michele Melgar and colleagues, with an educational josefina from [employer]. SALOME-7 Assessment Billing SALOME-7 Assessment Tool: SALOME-7 Assessment 83003 Review of Systems Const All systems reviewed & are unremarkable except as noted in HPI and below Card Denies chest pain at rest, Denies chest pain with activity, Denies edema, Denies irregular heart rhythm, Denies claudication, Denies dyspnea, Denies dyspnea on exertion, Denies orthopnea, Denies paroxysmal nocturnal dyspnea and Denies slow heart rate Resp Denies cough, Denies dyspnea and Denies dyspnea on exertion GI Denies abdominal pain, Denies change in bowel habits, Denies excessive flatus, Denies nausea and Denies vomiting Denies urinary hesitancy, Denies urinary incontinence and Denies urinary urgency Musc Denies abnormal gait, Denies atrophy, Denies deformity and Denies limited range of motion Skin/Breast Denies bleeding lesions, Denies changing lesions and Denies rash Neuro Denies abnormal gait, Denies behavioral changes and Denies lack of coordination Psych Denies behavioral changes Physical exam (Primary Care) Vital Signs: Last Vital Signs BP 138/70 11/29/24 08:30 BMI result Body Mass Index 24.2 Tobacco/Smoking Status: Tobacco use Status Tobacco use date assessed 11/29/24 11/29/24 08:36 Patient Tobacco Use Status Former Tobacco user 11/29/24 08:34 Tobacco use type Cigarette 11/29/24 08:34 e-Cigarette/Vaping Use Never Used 11/29/24 08:34 PHQ-9: PHQ-9 Score PHQ-9: Total score 0 11/29/24 08:43 Depression Screening Interpretation: Negative Thrive Assessment: Date of Thrive Assessment Date Thrive assessed 11/22/24 11/29/24 08:34 Currently or been in a relationship where the following occur: No concerns reported [facility] Head: Yes normal to inspection, Yes normocephalic and Yes atraumatic Ears: external ears normal Eyes General: appearance normal, both eyes and all related structures Eyelids: Yes eyelids normal Conjunctivae: conjunctivae normal Neck Neck: Yes normal visual inspection and Yes supple Resp Effort & Inspection: normal respiratory effort Auscultation: clear to auscultation bilaterally Cardio Jugular venous distension: no JVD Rate: regular rate Rhythm: regular rhythm Heart sounds: S1 normal heart sound present and S2 normal heart sound present GI Inspection: Yes normal to inspection Palpation (GI): Soft to palpation and nontender Auscultation: normal bowel sounds Skin General skin exam: no rashes or lesions noted Neuro General: no focal motor deficits Extrem General: Yes full ROM Psych Appearance: grossly normal Coding Level of Care Code New Pt Prev Care >65yr (43689) Diagnoses Adult general medical exam Z00.00 Additional Codes SALOME-7 Assessment Billing - SALOME-7 Assessment Tool: SALOME-7 Assessment 60566 ([id number]) PHQ-9 - 77816 - PHQ-9 Billing: Yes ([id number]) Time Spent (min) 30 Assessment & Plan Assessment & Plan (1) Adult general medical exam: Code(s): Z00.00 - Encounter for general adult medical examination without abnormal findings Category: Medical Plan The patient will continue with atorvastatin 10 mg for hyperlipidemia management, as it has effectively maintained excellent cholesterol levels. Lisinopril 10 mg will be continued for hypertension control, given the excellent blood pressure readings. The patient is advised to maintain regular dermatology follow-ups every six months for skin cancer monitoring and to use sunscreen regularly due to sunspots. A repeat fasting blood sugar test is planned in six months to monitor prediabetes status. Preventative care measures include maintaining up-to-date vaccinations, with pneumonia and tetanus vaccines already administered. The patient is encouraged to maintain his current weight and BMI, which is within the normal range. Patient was informed and verbally consented to the use of an ambient scribe for clinic note documentation during this visit. The patient will continue with atorvastatin 10 mg for hyperlipidemia management, as it has effectively maintained excellent cholesterol levels. Lisinopril 10 mg will be continued for hypertension control, given the excellent blood pressure readings. The patient is advised to maintain regular dermatology follow-ups every six months for skin cancer monitoring and to use sunscreen regularly due to sunspots. A repeat fasting blood sugar test is planned in six months to monitor prediabetes status. Preventative care measures include maintaining up-to-date vaccinations, with pneumonia and tetanus vaccines already administered. The patient is encouraged to maintain his current weight and BMI, which is within the normal range. Patient was informed and verbally consented to the use of an ambient scribe for clinic note documentation during this visit. Orders: Orders Lipid Panel 6 Months E78.5 - Hyperlipidemia, unspecified Comprehensive [place]. Panel Fast 6 Months Z00.00 - Encounter for general adult medical examination without abnormal findings Patient Instructions: - Continue taking atorvastatin and lisinopril as prescribed. - Schedule and attend dermatology follow-ups every six months. - Use sunscreen regularly to protect against sunspots. - Repeat fasting blood sugar test in six months. - Maintain current weight and BMI.
[2024-11-29 08:30] VITALS: BP 138/70; BMI 24.2
== END 2024-11-29 08:54 | disposition home or self-care (01) ==
PROVIDERS: PCP Internal Medicine; Visit Provider Internal Medicine
DX: Z00.00 Encounter for general adult medical examination without abnormal findings (principal)

== ENCOUNTER → 2024-11-29 08:16 | Outpatient (BNVA) | payer MEDICARE, BC, SELFPAY | PROVIDERS: PCP Internal Medicine; Visit Provider Internal Medicine | DX: Z00.00 Encounter for general adult medical examination without abnormal findings (principal); E78.5 Hyperlipidemia, unspecified; I10 Essential (primary) hypertension; Z87.891 Personal history of nicotine dependence | CPT/HCPCS: 96127; 99387 ==

== ENCOUNTER 2025-02-06 13:23 | Outpatient (AMB) | payer MEDICARE, BC, SELFPAY ==
--- OUTSIDE RECORDS SUMMARY | 2024-09-14 06:00 | XMS_ITS ---
Author Organization [facility] Address [address] [place] [address] Care Team Providers Care Clearing Supervisor Name Role Phone Karly Barney Primary Care Provider Lawrence Boss Jr [phone] REASON FOR VISIT screening Encounters Encounter Location Date Provider Diagnosis [facility] [place] [address] [place], [place] [phone] 09/14/2024 Lawrence Larson Jr Colon cancer screening [...] LEIGHTON MALIN DDOB:[birth year] (69 yo M)Acc No.[id number]:09/14/2024 COLON WITH MAC Patient: Edinson LEIGHTON BERRY Provider: Edinson Larson MD :1955 A ge:69 Y S ex:Male Date:09/14/2024 Address:[address] [place] [address] Pcp:Karly Blanco Subjective: * Chief Complaints: * 1 . Screening. * Medical History: Objective: * Vitals: Assessment: * Assessment: 1. C olon cancer screening - Z12.11 (Primary) 2 . P ersonal history of adenomatous and serrated colon polyps - Z86.0101 Plan: * Treatment: * Procedure Codes: G 0105 COLOREC CANCR SCR; COLNSCPY HI RISK, 0529F INTRVL 3+YRS PTS CLNSCP DOCD, 0528F RCMND FLW-UP 10 YRS DOCD * * The named appointment provid er may or may not be the originator of this progress note, and it is not deemed complete until electronically signed by the appointment provider. Sign off status: Pending * Provider: Edinson Larson MD Date: 0 09/14/2024 Generated for Sydney guy/Archana/Sonamitting on: 0 02/06/2025 02:13 PM EDT
[2025-02-06 13:25] VITALS: BP 136/74; PULSE 74; O2SAT 98; BMI 24.2
--- NOTE | 2025-02-06 13:25 | MHC.PC.OV ---
Vital Signs 02/06/25 13:25 Height 5 ft 10 in Weight 168 lb 6 oz BMI 24.2 BP 136/74 Blood Pressure Location Lt brachial Position Sitting Pulse 74 Pulse Source Pulse Oximeter Pulse Oximetry (%) 98 Oxygen Delivery Method Room Air Intake Visit Reasons: chest discomfort Painter Required: No Accompanied by: Self / Same As Patient Allergies No Known Allergies Allergy (Verified 02/06/25 13:39) Medication List - Last Reconciled 02/06/25 by Karly Blanco MD atorvastatin 10 mg PO DAILY lisinopril 10 mg PO DAILY Tobacco use date assessed: 02/06/25 Fall risk assessment: No Falls in past year Last assessed Fall Risk: 02/06/25 Dental Screening Dental Screen Date: 02/06/25 Did you have a dental visit in the last 12 months?: Yes Did you have a dental problem in the last 6 months where you did not have access to dental care?: No Was dental information given to patient?: Patient has dentist HPI HPI Comments History of Present Illness Details The patient is a 69-year-old male presenting with discomfort in the middle of the chest. The chest pain began approximately three weeks ago after performing yard work on a hot day. The pain is precordial and occurs with exertion, such as using the treadmill, and is relieved by rest. The patient denies any associated shortness of breath or leg swelling. He reports episodes of elevated heart rate reaching the 150s during exertion. A previous EKG in November showed normal sinus rhythm with no abnormalities, and a stress test in 2020 was normal. The patient has a history of hypertension and pure hypercholesterolemia, managed with lisinopril 10 mg and atorvastatin 10 mg, respectively. His cholesterol levels have been well controlled with atorvastatin, and he reports no side effects from the medication. [facility] Medical History (Updated 11/29/24 @ 10:43 by Karly Blanco MD) Dyslipidemia Former smoker Other and unspecified hyperlipidemia Essential hypertension Surgical History Hx of right inguinal hernia repair History of colonoscopy Family History Father HTN (hypertension) Mother Cardiac pacemaker Brother HTN (hypertension) Sister HTN (hypertension) Social History Housing: House Are you a primary child care team lead to a significant other at home: No Do you presently have visiting nurse or other home services: No Alcohol intake: former Patient Tobacco Use Status: Former Tobacco user Tobacco use type: Cigarette e-Cigarette/Vaping Use: Never Used Second Hand Smoke Exposure: No service: Yes Current occupational status: retired Current occupational exposures/hazards: No Cognitive needs: No Hearing needs: No Vision needs: Yes Questionnaire PHQ-9 Over the last 2 weeks, how often have you been bothered by any of the following problems? 1. Little interest or pleasure in doing things: not at all 2. Feeling down, depressed, or hopeless: not at all 3. Trouble falling or staying asleep, or sleeping too much: not at all 4. Feeling tired or having little energy: not at all 5. Poor appetite or overeating: not at all 6. Feeling bad about yourself - or that you are a failure or have let yourself or your family down: not at all 7. Trouble concentrating on things, such as reading the newspaper or watching television: not at all 8. Moving or speaking so slowly that other people could have noticed. Or the opposite - being so fidgety or restless that you have been moving around a lot more than usual: not at all 9. Thoughts that you would be better off or of hurting yourself in some way: not at all Total score: 0 Depression Screening Interpretation: Negative Depression Screening Done: Yes 70506 - PHQ-9 Billing: Yes Source: Developed by Drs. Phill Lugo, Christine Lopez, Michele Melgar and colleagues, with an educational josefina from [email or web address]. Thrive Questionnaire Date Thrive assessed: 02/06/25 I am a: Patient What is your living situation today?: I have a steady place to live Within the past 12 months, did the food you bought not last and you didn't have the money to get more?: Never true Within the past 12 months, did you worry whether your food would run out before you got money to buy more?: Never true Do you have trouble paying for medicines?: No Do you have trouble getting transportation to medical appointments?: No Do you have trouble paying your heating and electricity bill?: No Do you have trouble taking care of your child, family member or friend?: No Do you have trouble with day-to-day activities such as bathing, preparing meals, shopping, managing finances, etc.?: No Are you currently unemployed and looking for a job?: No Are you interested in more education?: No Please select the resources that you would like help with: None Currently or been in a relationship where the following occur: No concerns reported THRIVE Score: 0 AUDIT C Alcohol Use Questionnaire (AUDIT-C) 1. How often do you have a drink containing alcohol?: Never 3. How often do you have six or more drinks on one occasion?: Never Total Score: 0 Score Reviewed/Action Taken: No SALOME-7 AMB Questionnaire SALOME-7 Date SALOME - 7 assessed: 02/06/25 Feeling nervous, anxious, or on edge: 0 = Not at all Not being able to stop or control worryin = Not at all Worrying too much about different things: 0 = Not at all Trouble relaxin = Not at all Being so restless that it is hard to sit still: 0 = Not at all Becoming easily annoyed or irritable: 0 = Not at all Feeling afraid as if something awful might happen: 0 = Not at all Total SALOME-7 score (0-4 normal; 5-9 mild; 10-14 moderate; 15-21 severe): 0 Source: Developed by Drs. Phill Lugo, Christine Lopez, Michele Melgar and colleagues, with an educational josefina from [email or web address]. SALOME-7 Assessment Billing SALOME-7 Assessment Tool: SALOME-7 Assessment 77802 Review of Systems Const All systems reviewed & are unremarkable except as noted in HPI and below Card Denies chest pain at rest, Denies chest pain with activity, Denies edema, Denies irregular heart rhythm, Denies claudication, Denies dyspnea, Denies dyspnea on exertion, Denies orthopnea, Denies paroxysmal nocturnal dyspnea and Denies slow heart rate Resp Denies cough, Denies dyspnea and Denies dyspnea on exertion GI Denies abdominal pain, Denies change in bowel habits, Denies excessive flatus, Denies nausea and Denies vomiting Physical exam (Primary Care) Vital Signs: Last Vital Signs Pulse 74 02/06/25 13:25 BP 136/74 02/06/25 13:25 Pulse Ox 98 02/06/25 13:25 Oxygen Delivery Method Room Air 02/06/25 13:25 BMI result Body Mass Index 24.2 Tobacco/Smoking Status: Tobacco use Status Tobacco use date assessed 02/06/25 02/06/25 13:31 Patient Tobacco Use Status Former Tobacco user 02/06/25 13:31 Tobacco use type Cigarette 02/06/25 13:31 e-Cigarette/Vaping Use Never Used 02/06/25 13:31 PHQ-9: PHQ-9 Score PHQ-9: Total score 0 02/06/25 13:43 Depression Screening Interpretation: Negative Thrive Assessment: Date of Thrive Assessment Date Thrive assessed 02/06/25 02/06/25 13:31 Currently or been in a relationship where the following occur: No concerns reported Resp Effort & Inspection: normal respiratory effort Auscultation: clear to auscultation bilaterally Cardio Jugular venous distension: no JVD Rate: regular rate Rhythm: regular rhythm Heart sounds: S1 normal heart sound present and S2 normal heart sound present Extrem General: Yes full ROM Coding Level of Care Code Est Pt Level 3 (60458) Complex EM visit Add On G2211 Diagnoses Precordial chest pain R07.2 Essential hypertension I10 Dyslipidemia E78.5 Additional Codes SALOME-7 Assessment Billing - SALOME-7 Assessment Tool: SALOME-7 Assessment 75231 ([id number]) PHQ-9 - 72619 - PHQ-9 Billing: Yes ([id number]) Time Spent (min) 19 Assessment & Plan Assessment & Plan (1) Precordial chest pain: Code(s): R07.2 - Precordial pain Category: Medical (2) Essential hypertension: Code(s): I10 - Essential (primary) hypertension Category: Medical (3) Dyslipidemia: Code(s): E78.5 - Hyperlipidemia, unspecified Category: Medical Plan Plan 1. Precordial pain R07.2 The patient will have an EKG today in the hospital, and cardiology will see him next week. We will call him with the results of the EKG. 2. Essential (primary) hypertension I10 The patient's hypertension is currently managed with lisinopril 10 mg. 3. Pure hypercholesterolemia, unspecified E78.00 The patient's hypercholesterolemia is well controlled with atorvastatin 10 mg, with no reported side effects. Orders: Orders ECG 12 lead EKG Today R07.2 - Precordial pain
--- OUTSIDE RECORDS SUMMARY | 2025-02-06 14:14 | XMS_ITS | Patient Health Record ---
Author Organization [facility] Address [address] [place] [address] Care Team Providers Care Assistant Printer Floor Covering Name Role Phone Karly Barney Primary Care Provider Lawrence Boss Jr Unavailable Allergies No Known Allergies Reason For Referral [...] Problem Status W/U Status Risk Notes Problem [id number] Colon cancer screening (Z12.11) Active confirmed Vital Signs Temperature 98.6 degrees Fahrenheit 08/20/2024 Blood pressure diastolic 01 mm Hg 08/20/2024 Height 70 in 08/20/2024 Blood pressure systolic 001 mm Hg 08/20/2024 Weight 173.8 lbs 08/20/2024 BMI 24.93 kg/m2 08/20/2024 Encounters Encounter Location Date Provider Diagnosis [facility] [place] [facility] [address] [place], [place] [id number] 09/14/2024 Lawrence Larson Jr Colon cancer screening Z12.11 and Personal history of adenomatous and serrated colon polyps Z86.0101 [facility] [address] [place] [address] 08/20/2024 Lawrence Larson Jr Colon cancer screening Z12.11 [facility] [address] [place] [address] 09/12/2024 Lawrence Larson Jr Assessments Encounter Date Diagnosis (ICD Code) Assessment Notes Treatment Notes Treatment Clinical Notes Section Notes 09/14/2024 Colon cancer screening (ICD-10 - Z12.11) 09/14/2024 Personal history of adenomatous and serrated colon polyps (ICD-10 - Z86.0101) 08/20/2024 Colon cancer screening (ICD-10 - Z12.11) Colonoscopy material was printed, Colonoscopy discharge material was printed We discussed colonoscopy today. We discussed risks and benefits of the procedure today. He understands these and agrees to proceed. This will be scheduled at his convenience. Plan Of Treatment Pending Test Test Name Order Date Colonoscopy 08/20/2024 Future Test Test Name Order Date COLONOSCOPY 08/20/2024 Insurance Providers Payer Name Payer Address Payer Phone Subscriber Number Group Number Insured Name Patient Relationship to Insured Coverage Start Date Coverage End Date MEDICARE OF [place] [address] [place] [address] [id number] LEIGHTON MALIN Self - patient is the insured 9 [facility] [address] [place], [place] [id number] LEIGHTON MALIN Self - patient is the insured Medical (General) History Medical History History ICD Code hyperlipidemia hypertension Palpitations Surgical History Surgery Date(Month/Year) Right inguinal herniorrhaphy 05/06
== END 2025-02-06 13:55 | disposition home or self-care (01) ==
LOC: HO.HMCH 13:24
PROVIDERS: PCP Internal Medicine; Visit Provider Internal Medicine
DX: R07.2 Precordial pain (principal); I10 Essential (primary) hypertension; E78.5 Hyperlipidemia, unspecified

== ENCOUNTER → 2025-02-06 13:23 | Outpatient (REF) | payer MEDICARE, BC, SELFPAY ==
--- NOTE | 2025-02-06 14:05 | ECG_ITS ---
Test Reason : cp Blood Pressure : */* mmHG Vent. Rate : 68 BPM Atrial Rate : 68 BPM P-R Int : 126 ms QRS Dur : 82 ms QT Int : 386 ms P-R-T Axes : 59 62 57 degrees QTcB Int : 410 ms Normal sinus rhythm Normal ECG When compared with ECG of 04-Sep-2004 09:19, No significant change was found Referred By: Karly Blanco Electronically Signed By: AMELIE CHANDLER
== END ==
LOC: HO.CARD 13:23
PROVIDERS: PCP Internal Medicine; Visit Provider Internal Medicine
DX: R07.2 Precordial pain (principal); I10 Essential (primary) hypertension; E78.00 Pure hypercholesterolemia, unspecified; Z79.899 Other long term (current) drug therapy; Z13.31 Encounter for screening for depression; Z13.39 Encounter for screening examination for other mental health and behavioral disorders
CPT/HCPCS: 93005; 96127; 99212

== ENCOUNTER → 2025-02-06 14:05 | Outpatient (BNV) | payer MEDICARE, BC, SELFPAY | PROVIDERS: PCP Internal Medicine; Visit Provider Internal Medicine | DX: R07.89 Other chest pain (principal) | CPT/HCPCS: 93010 ==

== ENCOUNTER 2025-02-07 10:58 | Emergency (ER) | payer MEDICARE, BC, SELFPAY ==
--- OUTSIDE RECORDS SUMMARY | 2024-09-14 06:00 | XMS_ITS ---
Author Organization [facility] Address [address] [place] [address] Care Team Providers Care Cnc Operator Programmer Name Role Phone Karly Barney Primary Care Provider Lawrence Boss Jr [phone] REASON FOR VISIT screening Encounters Encounter Location Date Provider Diagnosis [facility] [place] Out[place] [address] [place], [place] [phone] 09/14/2024 Lawrence Larson Jr Colon cancer screening [...] LEIGHTON MALIN DDOB:[birth year] (69 yo M)Acc No.[id number]:09/14/2024 COLON WITH MAC Patient: Edinson LEIGHTON BERRY Provider: Edinson Larson MD :1955 A ge:69 Y S ex:Male Date:09/14/2024 Address:[address] [place] [address] Pcp:Karly Blanco Subjective: * Chief Complaints: * [...] 09/14/2024 Generated for Sydney guy/Archana/Sonamitting on: 0 02/07/2025 03:41 PM EDT
--- NOTE | ~2025-02-07 | CT_ITS ---
CLINICAL HISTORY: SOB, near syncope --- Additional Notes or Special Instructions: waiting for iv @1615 CT angiogram chest/pulmonary arteries with contrast Multiplanar reconstructions and MIPS Comparison: None Findings: Lung apices and upper lobes not fully imaged. No filling defects are noted to suggest pulmonary embolus. Main pulmonary artery normal in caliber. Thoracic aorta normal caliber but not fully opacified. No coronary calcifications. No significant focal parenchymal abnormalities. No significant mediastinal or hilar adenopathy. No free pleural fluid. No acute bony abnormality noted. Cholelithiasis with nonspecific distention. Consider follow-up gallbladder ultrasound. Impression: No evidence of pulmonary embolus Cholelithiasis with gallbladder distention Consider ultrasound This document has been electronically signed by: Janes Royal MD on 02/07/2025 19:34:01
--- NOTE | ~2025-02-07 | XR_ITS ---
EXAMINATION: XR CHEST CLINICAL INFORMATION: CP COMPARISON: None available. TECHNIQUE: 2 views of the chest were obtained. FINDINGS: Lungs are clear and well aerated. Heart and mediastinal contours are within normal limits. There is no sign of pleural effusion. Mild degenerative changes are noted in the lower thoracic spine. XR/XR chest 2V IMPRESSION: No acute disease. Electronically signed by: Christopher Gomez MD 02/07/2025 11:36 AM EDT
[2025-02-07 11:08] VITALS: BP 166/93; PULSE 74; RESP 18; TEMP 36.4; O2SAT 99; BMI 23.8
--- NOTE | 2025-02-07 11:08 | ED_ITS ---
HPI - General Adult General Chief complaint: General Medical Stated complaint: Shakiness, weakness Time Seen by Provider: 02/07/25 15:31 Source: patient and family (patient's ) Mode of arrival: ambulatory Limitations: no limitations History of Present Illness ED Provider: Marie Bond PA-C HPI narrative: Patient is a 69 year-old assigned at male with a history of heart palpitations, HTN, dyslipidemia, and former smoker presenting to the emergency department with concerns of chest pain with weakness and shakiness. He has had intermittent episodes of chest pain for 3 to 4 weeks and reports the chest pain first started early January 2025 while doing yard work outside. Since then, he has episodes of chest pain that starts after aerobic exercise, but resolves with rest after a few minutes. The most recent episode of discomfort was earlier today while walking into the emergency department, but it has since improved. The chest pain is central/epigastric in location and does not radiate. He reports associated nausea and generalized weakness and shakiness. He denies any difficulty breathing, headaches, dizziness, vision changes, shortness of breath, fevers/chills, or abdominal pain. He follows with a printer assistant for heart palpitations in the past. Patient states that he follows with Dr. Ribeiro and has a stress test scheduled the morning of 02/08/2025. Onset (ago): week(s) (4 weeks) Associated symptoms: weakness Related Data Previous Rx's ?Medication ?Instructions ?Recorded atorvastatin 10 mg tablet 10 mg PO DAILY #90 tabs 05/13 11/03 lisinopril 10 mg tablet 10 mg PO DAILY #90 tabs 08/11 01/04 Allergies Allergy/AdvReac Type Severity Reaction Status Date / Time No Known Allergies Allergy Verified 02/07/25 11:11 Review of Systems 2 Constitutional: Constitutional: Reports as per HPI and Reports weakness Eyes: Eyes: Reports as per HPI and Denies change in vision ENT: Reports as per HPI Cardiovascular: Cardiovascular: Reports as per HPI, Reports chest pain and Denies dyspnea Respiratory: Respiratory: Reports as per HPI and Denies dyspnea Gastrointestinal: Gastrointestinal: Reports as per HPI, Denies change in bowel habits, Reports nausea and Denies vomiting Genitourinary: Genitourinary: Reports as per HPI Musculoskeletal: Musculoskeletal: Reports as per HPI Integumentary/Breasts: Skin/Breast: Reports as per HPI Neurologic: Reports as per HPI and Reports weakness Psychiatric: Psychiatric: Reports as per HPI Endocrine: Endocrine: Reports as per HPI Hematologic/Lymphatic: Hematologic/Lymphatic: Reports as per HPI Allergic/Immunologic: Allergic/Immunologic: Reports as per HPI [facility] Past Medical History Attestation statement: The following information was validated with the patient. (all information validated with the patient's ) Source: old records reviewed, obtained from family (patient's provided additional history and confirmed the history provided by the patient. ) and nursing notes reviewed Medical History Dyslipidemia Former smoker Other and unspecified hyperlipidemia Essential hypertension Surgical History Hx of right inguinal hernia repair History of colonoscopy Family History Family History Father HTN (hypertension) Mother Cardiac pacemaker Brother HTN (hypertension) Sister HTN (hypertension) Social History Social History Housing: House Are you a primary hiv/aids care nurse to a significant other at home: No Do you presently have visiting nurse or other home services: No Alcohol intake: former Patient Tobacco Use Status: Former Tobacco user Tobacco use type: Cigarette Smoked in Last 30 Days: No e-Cigarette/Vaping Use: Never Used Second Hand Smoke Exposure: No Use of substances other than those prescribed or required for medical reasons: No Advance Directives: No Advance Directives Information Provided: No service: Yes Current occupational status: retired Current occupational exposures/hazards: No Cognitive needs: No Hearing needs: No Vision needs: Yes Physical Exam ED Vital Signs: Vital Signs - 24 hr 02/07/25 11:08 02/07/25 15:14 02/07/25 15:56 Temperature 97.5 F 97.8 F Pulse Rate 74 57 58 Respiratory Rate 18 12 12 Blood Pressure 166/93 H 153/77 H 134/61 Pulse Oximetry 99 99 97 Oxygen Delivery Method Room Air Room Air 02/07/25 18:29 Temperature 97.7 F Pulse Rate 56 Respiratory Rate 12 Blood Pressure 122/64 Pulse Oximetry 98 Oxygen Delivery Method Room Air BMI result Body Mass Index 23.8 Const General: cooperative, no acute distress, alert and awake Nutritional Appearance: well nourished Orientation/consciousness: patient oriented x3 HENMT Head: Yes normal to inspection and Yes atraumatic Ears: hearing grossly normal bilaterally and external ears normal General nose exam: Normal external nose present, no nasal discharge noted and no epistaxis Face and sinus: Yes normal facial exam, No abrasion and No laceration Mouth: Normal oral and palatal mucosa present, no drooling and no muffled voice Eyes General: appearance normal, both eyes and all related structures Periorbital: periorbital findings normal Eyelids: Yes eyelids normal Conjunctivae: conjunctivae normal Pupils: Equal, round and reactive pupils present EOM: EOMs intact bilaterally Neck Neck: Yes normal visual inspection and Yes full ROM Resp Effort & Inspection: normal respiratory effort and able to speak in complete sentences Auscultation: clear to auscultation bilaterally Cardio Rate: regular rate Rhythm: regular rhythm Neuro General: patient oriented x3, moves all extremities and CN's II-XI intact bilaterally Cranial nerves: Yes Equal, round and reactive pupils present Cognition (Neuro): normal cognition Extrem General: Yes normal to inspection, Yes full ROM and Yes capillary refill normal Psych Appearance: grossly normal Mental Status: mental status grossly normal Affect: normal affect Attitude: cooperative Thought process: Normal thought process present Thought content: Normal thought content present Insight: Good insight present (Psych) Course Course Course Narrative: This is an RME: Additional HPI, ROS, PE not included below will be deferred to primary provider. RME assessment and note performed by: Meenu Del Rosario PA-C This is a 69-qwpu-nsq-male, with a hx of dyslipidemia, htn on lisinopril, who presents to the ER with complaints of fatigue, chest discomfort. Anytime he does exercise, 15-20 minutes he feels discomfort in his chest with associated nausea, weakness in BL legs. Has been taking BPs at home 130s/70s. Saw Dr. Eugene yesterday and had an EKG but was not told the results. Has stress test scheduled mid February. Reporting that right at this time he has shakiness. Reporting no sweats or dizziness. He is not SOB. Denies any hx of cardiac problem. Plan: Labs, EKG, CXR, further ER eval needed Reevaluation(s) Reevaluation #1: 7:36 PM 02/07/2025 (Joe IBARRA): The patient was signed out to this provider at shift change. In summary the patient is a 69-year-old male with history of dyslipidemia and hypertension, presenting to the ED for evaluation of worsening exertional fatigue and chest pain. The patient is followed by Cardiology, was scheduled for an outpatient stress test in February, however due to worsening symptoms was sent to the ED by his printer assistant Dr. Ribeiro today. Workup today in the ED is reassuring, negative troponin, nonischemic EKG, otherwise unremarkable workup. Patient's printer assistant was contacted and patient is now scheduled for a stress test tomorrow at 10:00. Patient was signed out pending results of CTA chest to rule out coagulopathic process. At this time CTA has resulted and shows no evidence of PE. However the CT chest shows cholelithiasis with gallbladder distention with the recommendation for follow up ultrasound. We will reassess the patient for tenderness of the right upper quadrant and consider ultrasound. 7:42 PM 02/07/2025 (Joe IBARRA): The patient's repeat abdominal exam reveals no right upper quadrant tenderness, patient denies any nausea, vomiting, fevers or other concerning symptoms. Patient's LFTs and lipase are unremarkable, no indication for ultrasound at this time. The patient will be discharged to follow up with his outpatient stress test at 10:00 tomorrow. Patient reminded of reasons to return to the ED prior to his stress test and states his understanding. Medications Administered Discontinued Medications Generic Name Dose Route Start Last Admin Trade Name Freq PRN Reason Stop Dose Admin Iohexol 100 ml 02/07/25 17:05 02/07/25 17:08 Iohexol 350 Mg/Ml 100 Ml Infus..Btl IV 02/07/25 17:06 65 ml ONCE ONE Administration Medical Decision Making Medical Decision Making MDM Narrative: Patient is a 69 year-old assigned at male with a history of heart palpitations, HTN, dyslipidemia, and former smoker presenting to the emergency department with concerns of chest pain with weakness and shakiness. Patient's physical exam was unremarkable. Patient's blood work was unremarkable. Patient's EKG was unremarkable. Patient's chest x-ray showed no acute process. Patient's CT PE study is pending. I explained my physical exam findings as well as all test results to the patient and the patient's . I answered all questions asked by the patient and the patient's . Patient signed out to STACEY Patel pending CT PE read. Differential Diagnosis Differential Diagnoses: The differential diagnosis associated with the presentation includes Chest pain NSTEMI STEMI PE Admission/Observation Consideration of admission/observation: Escalation of care including admission/observation considered Patient's disposition will be determined after CT PE study. Lab Data [facility] Lab Attestation statement: I reviewed the patient's lab results. My interpretation of these results are in the [facility] Rationale portion of this note. 02/07/25 11:25 02/07/25 11:25 Labs: Lab Results 02/07/25 02/07/25 02/07/25 Range/Units 11:25 15:36 16:27 WBC 6.3 (4.8-10.8) X10*3/uL RBC 4.67 (4.60-5.80) X10*6/uL Hgb 15.2 (14.0-18.0) g/dl Hct 42.0 (42.0-52.0) % MCV 89.9 (80.0-98.0) fL MCH 32.5 (27.0-33.0) pg MCHC 36.2 H (31.0-36.0) g/dl RDW 11.8 (11.0-16.0) % Plt Count 228 (160-400) X10*3/uL MPV 9.2 L (9.4-12.4) fL Immature Gran % (Auto) 0.5 H (0.0-0.4) % Neut % (Auto) 67.9 (45-73) % Lymph % (Auto) 21.6 (20-40) % [place] % (Auto) 7.4 (2-11) % Eos % (Auto) 2.1 (0-4) % Baso % (Auto) 0.5 (0-2) % Lymph # (Auto) 1.4 (1.2-4.9) X10*3/uL [place] # (Auto) 0.5 (0.1-1.2) X10*3/uL Eos # (Auto) 0.1 (0.0-0.4) X10*3/uL Baso # (Auto) 0.0 (0.0-0.2) X10*3/uL Abs Immat Gran (auto) 0.03 (0.00-0.03) X10*3/uL Absolute Neuts (auto) 4.3 (2.0-8.3) x10*3/uL Absolute Nucleated RBC 0.000 (0.0-0.012) X10*3/uL Nucleated RBC % (auto) 0.0 (0.0-0.2) /100WBC Sodium 139 (135-145) mmol/L Potassium 4.1 (3.3-5.1) mmol/L Chloride 106 (96-108) mmol/L Carbon Dioxide 27 (22-29) mmol/L Anion Gap 10 L (12-20) BUN 21 H (9-16) mg/dL Creatinine 1.02 (0.5-1.4) mg/dL Estim Creat Clear Calc 68.5 Estimated GFR > 60 Random Glucose 116 H (60-115) mg/dL Calcium 9.3 (8.4-10.2) mg/dL Magnesium 1.9 (1.6-2.6) mg/dL Total Bilirubin 1.1 H (0.0-1.0) mg/dL Direct Bilirubin 0.4 (0.0-0.5) mg/dL AST 21 (5-37) U/L ALT 17 (0-40) U/L Alkaline Phosphatase 72 (39-117) U/L Troponin I High Sens < 2.7 < 2.7 (<3.5-35.0) ng/L B-Natriuretic Peptide 18 (<100) pg/mL Total Protein 7.1 (6.5-8.0) g/dL Albumin 4.7 (3.5-5.0) g/dL Lipase 22 (8-78) U/L COVID-19 (ONI) Negative (Negative) COVID-19 Clin Com See Note Influenza Type A (RANJITH) Negative (Negative) Influenza Type B (RANJITH) Negative (Negative) Influenza A & B Note See Note Independent Interpretation I performed an independent interpretation of an: EKG and Plain X-Ray Interpretation: My interpretation is in agreement with the radiologist's impression of this imaging study. L EXAMINATION: XR CHEST CLINICAL INFORMATION: CP COMPARISON: None available. TECHNIQUE: 2 views of the chest were obtained. FINDINGS: Lungs are clear and well aerated. Heart and mediastinal contours are within normal limits. There is no sign of pleural effusion. Mild degenerative changes are noted in the lower thoracic spine. XR/XR chest 2V IMPRESSION: No acute disease. Electronically signed by: Christopher Gomez MD 02/07/2025 11:36 AM EDT RP Dictated By: Christopher Gomez MD Signed By: Electronically signed by Christopher Gomez MD 02/07/25 1136 Vent. Rate: 62 BPM Atrial Rate: 62 BPM P-R Int: 118 ms QRS Dur: 82 ms QT Int: 408 ms P-R-T Axes: 62 59 52 degrees QTcB Int: 414 ms Normal sinus rhythm Normal ECG When compared with ECG of 06-Feb-2025 14:08, No significant change was found Referred By: Meenu Del Rosario Electronically Signed By: NIKO RIBEIRO Dictated By: Niko Ribeiro MD Signed By: Electronically signed by Niko Ribeiro MD 02/07/25 1649 CLINICAL HISTORY: SOB, near syncope --- Additional Notes or Special Instructions: waiting for iv @1615 CT angiogram chest/pulmonary arteries with contrast Multiplanar reconstructions and MIPS Comparison: None Findings: Lung apices and upper lobes not fully imaged. No filling defects are noted to suggest pulmonary embolus. Main pulmonary artery normal in caliber. Thoracic aorta normal caliber but not fully opacified. No coronary calcifications. No significant focal parenchymal abnormalities. No significant mediastinal or hilar adenopathy. No free pleural fluid. No acute bony abnormality noted. Cholelithiasis with nonspecific distention. Consider follow-up gallbladder ultrasound. Impression: No evidence of pulmonary embolus Cholelithiasis with gallbladder distention Consider ultrasound This document has been electronically signed by: Janes Royal MD on 02/07/2025 19:34:01 Radiology Impression Discussion of test interpretation with radiology: I have reviewed the radiologist's reading. Independent Historian Clinical information obtained from an independent historian. History obtained from or confirmed by: Spouse (patient's provided additional history and confirmed the history provided by the patient. ) Critical Care Time Critical Care Time Critical Care Time: Yes Total Critical Care Time: 33 Attestation: I spent 33 minutes of Critical Care Time with this patient. This does not include time spent on separately reported billable procedures. Discharge Plan Discharge Clinical Impression: Chest pain Patient Disposition: Home, Self-Care Instructions: Chest Pain (ED) Additional Instructions: Thank you for choosing [facility] Emergency Department for your care today. Thankfully your laboratory evaluation, EKG, viral swab, chest x-ray, and chest CT today are reassuring. At this time there is no indication for admission to the hospital or continued ED observation, and it is safe to discharge you home. It is extremely important that you follow up tomorrow with the cardiology team for your stress test which is scheduled at 10:00am. It is okay to eat this evening however please do not eat anything after midnight. Please return immediately to the emergency department with any worsening symptoms including worsening pain, near fainting, fainting, fever, vomiting, or other new or worsening concerning symptoms. Please also follow up with your primary care physician for re-evaluation, additional management of your symptoms, and continued preventative care. If you do not have a primary care physician, please call the [facility] at [phone] to establish a new primary care physician. While waiting to establish your new primary care physician, you can call our Walk[facility]in [facility] at [phone] for non-emergency needs. Prescriptions: No Action atorvastatin 10 mg tablet 10 mg PO DAILY Qty: 90 2RF lisinopril 10 mg tablet 10 mg PO DAILY Qty: 90 1RF Referrals: Karly Barney MD [Primary Care Provider, Internal Medicine] Clinical Impression: Chest pain Print Language: Bengali
--- NOTE | 2025-02-07 11:11 | ECG_ITS ---
Test Reason : CP/WEAKNESS Blood Pressure : */* mmHG Vent. Rate : 62 BPM Atrial Rate : 62 BPM P-R Int : 118 ms QRS Dur : 82 ms QT Int : 408 ms P-R-T Axes : 62 59 52 degrees QTcB Int : 414 ms Normal sinus rhythm Normal ECG When compared with ECG of 06-Feb-2025 14:08, No significant change was found Referred By: Meenu Del Rosario Electronically Signed By: AMELIE CHANDLER
[2025-02-07 11:29] LABS: MANUAL DIFF FLAG NO
[2025-02-07 11:37] LABS: Hematocrit 42.0 % (42.0-52.0); Hemoglobin 15.2 g/dl (14.0-18.0); Imm Gran Abs Auto 0.03 X10*3/uL (0.00-0.03); Imm Gran Pct Auto 0.5 % (0.0-0.4); Lymphocytes Absolute Auto 1.4 X10*3/uL (1.2-4.9); Mean Corpuscular HGB Conc 36.2 g/dl (31.0-36.0); Mean Corpuscular Hemoglobin 32.5 pg (27.0-33.0); Mean Corpuscular Volume 89.9 fL (80.0-98.0); NRBC Abs Auto 0.000 X10*3/uL (0.0-0.012); NRBC Pct Auto 0.0 /100WBC (0.0-0.2); Platelet Count 228 X10*3/uL (160-400); Red Blood Count 4.67 X10*6/uL (4.60-5.80); White Blood Count 6.3 X10*3/uL (4.8-10.8)
[2025-02-07 11:49] LABS: Alanine Aminotransferase 17 U/L (0-40); Albumin Level 4.7 g/dL (3.5-5.0); Alkaline Phosphatase 72 U/L (39-117); Anion Gap 10 (12-20); Aspartate Amino Transferase 21 U/L (5-37); Blood Urea Nitrogen 21 mg/dL (9-16); Calcium 9.3 mg/dL (8.4-10.2); Carbon Dioxide 27 mmol/L (22-29); Chloride 106 mmol/L (96-108); Creatinine Clr Calc Pharmacy 68.5; Estimated Glomerular Filt Rate > 60; Magnesium 1.9 mg/dL (1.6-2.6); Potassium 4.1 mmol/L (3.3-5.1); Sodium 139 mmol/L (135-145); Total Protein 7.1 g/dL (6.5-8.0)
[2025-02-07 11:55] LABS: Troponin-I High Sensitivity < 2.7 ng/L (<3.5-35.0)
[2025-02-07 15:14] VITALS: BP 153/77; PULSE 57; RESP 12; O2SAT 99
--- NOTE | 2025-02-07 15:36 | PC.NURSE ---
Addendum entered by Kat Coleman RN 02/07/25 15:38: Patient is a 69-year-old male presenting with discomfort in the middle of the chest. The chest pain began approximately three weeks ago after performing yard work on a hot day. The pain is precordial and occurs with exertion, such as using the treadmill, and is relieved by rest. The patient denies any associated shortness of breath or leg swelling. He reports episodes of elevated heart rate reaching the 150s during exertion. A previous EKG in November showed normal sinus rhythm with no abnormalities, and a stress test in 2020 was normal. The patient has a history of hypertension and pure hypercholesterolemia. PCP schedule a stress test for 03/07 and patient was concerned so he came to the ED for further eval. Alert and oriented. playground monitor applied and sbrady noted. Denies CP or SOB at this time. Lungs clear bilat. Respirations even and non-labored. Abdomen soft, non-tender with positive bowel sounds. Positive pedal pulses with no edema. Original Note: Medical History Dyslipidemia Former smoker Other and unspecified hyperlipidemia Essential hypertension
--- OUTSIDE RECORDS SUMMARY | 2025-02-07 15:41 | XMS_ITS | Patient Health Record ---
Author Organization [facility] Address [address] [place] [address] Care Team Providers Care Drift Miner Name Role Phone Karly Barney Primary Care Provider Lawrence Boss Jr Unavailable [phone] Allergies No Known Allergies Reason For Referral [...] Problem Status W/U Status Risk Notes Problem [id number] Colon cancer screening (Z12.11) Active confirmed Vital Signs Temperature 98.6 degrees Fahrenheit 08/20/2024 Blood pressure diastolic 01 mm Hg 08/20/2024 Height 70 in 08/20/2024 Blood pressure systolic 001 mm Hg 08/20/2024 Weight 173.8 lbs 08/20/2024 BMI 24.93 kg/m2 08/20/2024 Encounters Encounter Location Date Provider Diagnosis [facility] [address] [place], [place] [id number] 09/14/2024 Lawrence Larson Jr Colon cancer screening Z12.11 and Personal history of adenomatous and serrated colon polyps Z86.0101 [facility] [address] [place] [address] 08/20/2024 Lawrence Larson Jr Colon cancer screening Z12.11 [facility] [address] [place] [address] 09/12/2024 Lawrence Larson Jr Assessments Encounter Date [...] Date MEDICARE OF [place] [address] [facility] [place] [address] [id number] LEIGHTON MALIN Self - patient is the insured 9 [facility] [address] [place], [place] [id number] [phone] [id number] LEIGHTON MALIN Self - patient is the insured Medical (General) History Medical History History ICD Code hyperlipidemia hypertension Palpitations Surgical History Surgery Date(Month/Year) Right inguinal herniorrhaphy 05/06
[2025-02-07 15:56] VITALS: BP 134/61; PULSE 58; RESP 12; TEMP 36.6; O2SAT 97
[2025-02-07 15:58] LABS: COVID-19 Test Negative (Negative); IDNOW Serial# 55D5AD1C
[2025-02-07 16:02] LABS: IDNOW Serial# 58CA691E; Influenza B2 Negative (Negative)
[2025-02-07 16:37] LABS: Lipase 22 U/L (8-78)
[2025-02-07 16:52] LABS: B Type Natriuretic Peptide 18 pg/mL (<100)
[2025-02-07 16:53] LABS: Troponin-I High Sensitivity < 2.7 ng/L (<3.5-35.0)
[2025-02-07] MEDS: iohexoL 350 MG/ML 100 ML INFUS..BTL IV (17:08)
[2025-02-07 18:29] VITALS: BP 122/64; PULSE 56; RESP 12; TEMP 36.5; O2SAT 98
[2025-02-07 19:48] VITALS: BP 128/72; PULSE 64; RESP 16; TEMP 36.8; O2SAT 97
[2025-02-07 19:54] VITALS: BP 128/72; PULSE 64; RESP 16; TEMP 36.8; O2SAT 97
== END 2025-02-07 19:55 | disposition home or self-care (01) ==
PROVIDERS: Physician Assistant Medical; Emergency Provider Emergency Medicine; PCP Internal Medicine
DX: R07.9 Chest pain, unspecified (principal); I10 Essential (primary) hypertension; R53.83 Other fatigue; K80.20 Calculus of gallbladder without cholecystitis without obstruction; R53.1 Weakness; Z87.891 Personal history of nicotine dependence; Z79.899 Other long term (current) drug therapy
CPT/HCPCS: 36415; 71046; 71275; 80048; 80076; 83690; 83735; 83880; 84484; 85025; 87502; 87635; 93005; 99284; 99285; Q9967

== ENCOUNTER → 2025-02-07 11:11 | Outpatient (BNV) | payer MEDICARE, BC, SELFPAY | PROVIDERS: PCP Internal Medicine; Visit Provider Internal Medicine | DX: R07.89 Other chest pain (principal); R53.1 Weakness | CPT/HCPCS: 93010 ==

== ENCOUNTER → 2025-02-07 11:12 | Outpatient (BNV) | payer MEDICARE, BC, SELFPAY | PROVIDERS: PCP Internal Medicine; Visit Provider Radiology Diagnostic Radiology | DX: K80.20 Calculus of gallbladder without cholecystitis without obstruction (principal); R07.89 Other chest pain | CPT/HCPCS: 71046 ==

== ENCOUNTER → 2025-02-08 09:45 | Outpatient (REF) | payer MEDICARE, BC, SELFPAY ==
--- OUTSIDE RECORDS SUMMARY | 2024-09-14 06:00 | XMS_ITS ---
Author Organization [facility] Address [address] [place] [address] Care Team Providers Care Ash Pit Worker Name Role Phone Karly Barney Primary Care Provider Lawrence Boss Jr [phone] REASON FOR VISIT screening Encounters Encounter Location Date Provider Diagnosis [facility] [place] Out[place] [address] [place], [place] [phone] 09/14/2024 Lawrence Larson Jr Colon cancer screening [...] LEIGHTON MALIN DDOB:[birth year] (69 yo M)Acc No.[id number]:09/14/2024 COLON WITH MAC Patient: Edinson LEIGHTON BERRY Provider: Edinson Larson MD :1955 A ge:69 Y S ex:Male Date:09/14/2024 Address:[address] [place] [address] Pcp:Karly Blanco Subjective: * Chief Complaints: * [...] 09/14/2024 Generated for Sydney guy/Archana/Sonamitting on: 0 02/08/2025 10:29 AM EDT
--- NOTE | 2025-02-08 09:47 | CA_ITS ---
Acquisition Time: 2025-02-08 10:19:14 Total Exercise Time: 00:06:40 Test Indications: CP,Palpitations Medications: ATORVASTATIN LISINOPRIL TADALAFIL Protocol: CLEOPATRA Max HR: 157 BPM 105% of Pred: 149 BPM Max BP: 184/60 mmHG Max Work Load: 8.0 METS Exercise stress test with exercise 6 mins 40 secs of Cleopatra Protocol, achieving 105% MPHR, with reports of mild SOB, no chest pain, without any arrythmias, with normotensive response to exercise. Without any EKG changes meeting criteria for ischemia. In recovery, pt's breathing back to baseline. Test reviewed with Dr. Ribeiro. Referred By: Candelario Cardenas Electronically Signed By: Candelario Cardenas
--- OUTSIDE RECORDS SUMMARY | 2025-02-08 10:29 | XMS_ITS | Patient Health Record ---
Author Organization [facility] Address [address] [place] [address] Care Team Providers Care Machine Stone Polisher Apprentice Name Role Phone Karly Barney Primary Care [...] Problem Status W/U Status Risk Notes Problem [id number] Colon cancer screening (Z12.11) Active confirmed Vital Signs Temperature 98.6 degrees Fahrenheit 08/20/2024 Blood pressure diastolic 01 mm Hg 08/20/2024 Height 70 in 08/20/2024 Blood pressure systolic 001 mm Hg 08/20/2024 Weight 173.8 lbs 08/20/2024 BMI 24.93 kg/m2 08/20/2024 Encounters Encounter Location Date Provider Diagnosis [facility] [address] [place], [place] [id number] 09/14/2024 Lawrence Larson Jr Colon cancer screening Z12.11 and Personal history of adenomatous and serrated colon polyps Z86.0101 [facility] [address] [place] [address] 08/20/2024 Lawrence Larson Jr Colon cancer screening Z12.11 [facility] [address] [place] [address] 09/12/2024 Lawrence Larson Jr Assessments Encounter Date [...] Date MEDICARE OF [place] [address] [facility] [place] [address] [id number] LEIGHTON MALIN Self - patient is the insured 9 [facility] [address] [place], [place] [id number] LEIGHTON MALIN Self - patient is the insured Medical (General) History Medical History History ICD Code hyperlipidemia hypertension Palpitations Surgical History Surgery Date(Month/Year) Right inguinal herniorrhaphy 05/06
== END ==
LOC: HO.CARD 09:45
PROVIDERS: PCP Internal Medicine
DX: R07.2 Precordial pain (principal)
CPT/HCPCS: 93017

== ENCOUNTER → 2025-02-08 09:47 | Outpatient (BNV) | payer MEDICARE, BC, SELFPAY | PROVIDERS: PCP Internal Medicine | DX: R07.2 Precordial pain (principal); R00.2 Palpitations | CPT/HCPCS: 93016; 93018 ==

== ENCOUNTER 2025-02-15 13:24 | Outpatient (REF) | payer MEDICARE, BC, SELFPAY ==
[2025-02-15 16:40] LABS: Anion Gap 10 (12-20); Blood Urea Nitrogen 20 mg/dL (9-16); Calcium 9.4 mg/dL (8.4-10.2); Carbon Dioxide 28 mmol/L (22-29); Chloride 105 mmol/L (96-108); Estimated Glomerular Filt Rate > 60; Potassium 4.4 mmol/L (3.3-5.1); Sodium 139 mmol/L (135-145)
[2025-02-16 12:28] LABS: Lyme Abs Screen <0.90 index
== END 2025-02-15 13:25 | disposition home or self-care (01) ==
LOC: HO.LAB 13:24
PROVIDERS: PCP Internal Medicine
DX: R07.2 Precordial pain (principal); R45.0 Nervousness; R53.83 Other fatigue; I10 Essential (primary) hypertension; E78.5 Hyperlipidemia, unspecified; Z01.84 Encounter for antibody response examination; Z79.899 Other long term (current) drug therapy
CPT/HCPCS: 36415; 80048; 86617; 86618; 99212

== ENCOUNTER 2025-02-15 13:24 | Outpatient (AMB) | payer MEDICARE, BC, SELFPAY ==
--- OUTSIDE RECORDS SUMMARY | 2024-09-14 06:00 | XMS_ITS ---
Author Organization [facility] Address [address] [place] [address] Care Team Providers Care Extrusion Process Operator Name Role Phone Karly Barney Primary Care Provider Lawrence Boss Jr REASON FOR VISIT screening Encounters Encounter Location Date Provider Diagnosis [facility] [place] [address] [place], [place] [phone] 09/14/2024 Lawrence Larson Jr Colon cancer screening [...] LEIGHTON MALIN DDOB:[birth year] (69 yo M)Acc No.[id number]:09/14/2024 COLON WITH MAC Patient: Edinson LEIGHTON BERRY Provider: Edinson Larson MD :1955 A ge:69 Y S ex:Male Date:09/14/2024 Address:[address] [place] [address] Pcp:Karly Blanco Subjective: * Chief Complaints: * [...] 09/14/2024 Generated for Sydney guy/Archana/Sonamitting on: 0 02/15/2025 01:34 PM EDT
--- OUTSIDE RECORDS SUMMARY | 2025-02-15 13:35 | XMS_ITS | Patient Health Record ---
Author Organization [facility] Address [address] [place] [address] Care Team Providers Care Manager Of Network Name Role Phone Karly Barney Primary Care Provider Lawrence Boss Jr Unavailable [phone] Allergies No Known Allergies Reason For [...] Problem Status W/U Status Risk Notes Problem [id number] Colon cancer screening (Z12.11) Active confirmed Vital Signs Temperature 98.6 degrees Fahrenheit 08/20/2024 Blood pressure diastolic 01 mm Hg 08/20/2024 Height 70 in 08/20/2024 Blood pressure systolic 001 mm Hg 08/20/2024 Weight 173.8 lbs 08/20/2024 BMI 24.93 kg/m2 08/20/2024 Encounters Encounter Location Date Provider Diagnosis [facility] [place] [address] [place], [place] [phone] 09/14/2024 Lawrence Larson Jr Colon cancer screening Z12.11 and Personal history of adenomatous and serrated colon polyps Z86.0101 [facility] [address] [place] [address] 08/20/2024 Lawrence Larson Jr Colon cancer screening Z12.11 [facility] [address] [place] [address] 09/12/2024 Lawrence Larson Jr Assessments Encounter Date [...] Date MEDICARE OF [place] [address] [facility] [place] [address] [id number] LEIGHTON MALIN Self - patient is the insured 9 [facility] [address] [place], [place] [phone] [id number] LEIGHTON MALIN Self - patient is the insured Medical (General) History Medical History History ICD Code hyperlipidemia hypertension Palpitations Surgical History Surgery Date(Month/Year) Right inguinal herniorrhaphy 05/06
[2025-02-15 14:17] VITALS: BP 138/70; PULSE 64; BMI 23.4
--- NOTE | 2025-02-15 14:17 | A.OFFVIS_ITS ---
Vital Signs 02/15/25 14:17 Height 5 ft 10 in Weight 163 lb 2.273 oz BMI 23.4 BP 138/70 Blood Pressure Location Lt brachial Position Sitting Pulse 64 Pulse Source Pulse Oximeter Intake Visit Reasons: Follow up Allergies No Known Allergies Allergy (Verified 02/07/25 11:11) Medication List - Last Reconciled 02/15/25 by Candelario Cardenas NP atorvastatin 10 mg PO DAILY lisinopril 10 mg PO DAILY HPI Comments Details: This is a 69-year-old male patient coming in for follow-up visit. Patient with history of hypertension and hyperlipidemia who was previously on long-term sotalol even though patient had no true confirmation of AFib. Patient was recently seen by Dr. Ribeiro and was stable at that point. Patient then had called the office stating that he has been having sickness to his chest with numbness tingling and jittery down his extremities noted at 15 minutes after his exertion. Patient states that during his exertion he has no symptoms limiting his activities but his symptoms afterwards has been bothering him. Subsequently patient underwent a stress test which was normal. At the stress lab, patient was recovered for almost 20 minutes where he had no symptoms and was discharged home. Patient later call the office stating that he had symptoms almost an hour or 2 later lasting couple hours. We discussed about wearing a Holter monitor to rule out potential arrhythmias. However, patient insisted on being seen sooner and therefore is here today for an office visit. Patient is otherwise denying any exertional chest pain, shortness of breath, palpitations, dizziness, orthopnea, PND, leg edema, presyncope or syncope. Patient's main concern is filling the jitteriness and numbness down his extremities about 15 minutes to an hour after his exertion. Patient is reporting compliance with his medications. [facility] Medical History Dyslipidemia Former smoker Other and unspecified hyperlipidemia Essential hypertension Surgical History Hx of right inguinal hernia repair History of colonoscopy Family History Father HTN (hypertension) Mother Cardiac pacemaker Brother HTN (hypertension) Sister HTN (hypertension) Social History Housing: House Are you a primary pharmacy customer care specialist to a significant other at home: No Do you presently have visiting nurse or other home services: No Alcohol intake: former Patient Tobacco Use Status: Former Tobacco user Tobacco use type: Cigarette e-Cigarette/Vaping Use: Never Used Second Hand Smoke Exposure: No service: Yes Current occupational status: retired Current occupational exposures/hazards: No Cognitive needs: No Hearing needs: No Vision needs: Yes Review of Systems Const Denies weakness ENT Denies dizziness Card Reports no additional complaints, Denies chest pain, Denies chest pain with activity, Denies syncope, Denies rapid heart rate, Denies pedal edema, Denies edema, Denies leg edema, Denies lightheadedness, Denies palpitations, Denies dyspnea, Denies dyspnea on exertion and Denies orthopnea Resp Denies cough, Denies dyspnea and Denies dyspnea on exertion GI Denies hematochezia and Denies change in stool character Musc Denies abnormal gait, Denies muscle cramps, Denies muscle weakness, Denies numbness, Denies radiating pain into limb and Reports tingling Neuro Denies abnormal gait, Denies dizziness, Denies syncope, Denies numbness, Reports tingling and Denies weakness Endo Denies palpitations Physical Exam Vital Signs: Last Vital Signs Pulse 64 02/15/25 14:17 BP 138/70 02/15/25 14:17 BMI result Body Mass Index 23.4 Const General: cooperative, healthy appearing, comfortable and no acute distress Orientation/consciousness: patient oriented x3 HEENT Head: Yes normal to inspection Neck Neck: Yes normal visual inspection, Yes trachea midline and Yes supple Chest Chest palpation & inspection: normal inspection of the chest Resp Effort & Inspection: normal respiratory effort Auscultation: clear to auscultation bilaterally, no crackles, no rales, no rhonchi and no wheezes Cardio Jugular venous distension: no JVD Palpation: normal PMI Rate: regular rate Rhythm: regular rhythm Heart sounds: S1 normal heart sound present, S2 normal heart sound present, no click, no gallops, no murmurs and no rubs Peripheral pulses: Peripheral pulses 2+ throughout GI Inspection: Yes normal to inspection Palpation (GI): Soft to palpation Auscultation: normal bowel sounds Skin General skin exam: no rashes or lesions noted Neuro General: patient oriented x3 Extrem General: Yes normal to inspection, No no pedal edema and No calf tenderness Psych Appearance: grossly normal Mental Status: mental status grossly normal Speech and movement: Normal speech and movement present Assessment & Plan Assessment & Plan (1) Precordial chest pain: Code(s): R07.2 - Precordial pain Category: Medical Plan: 02/08/2025-patient underwent a stress test with moderate amount of workload without any chest pain or EKG changes. Given his ongoing atypical symptoms, we discussed about his symptoms not being cardiac etiology however we decided to repeat a Holter study to eliminate potential arrhythmias. Patient is also mostly anxious and therefore requires a lot of reassurance as his symptoms could be making this worse. Given his symptoms of numbness/tingling and jitteriness in his bilateral extremities, he has symptoms sound more neurological origin. Patient also requested a Lyme titer as he is very active outdoors and has a dog. If his Holter study is benign then patient to follow up with primary care for further neurological evaluation. (2) Essential hypertension: Code(s): I10 - Essential (primary) hypertension Category: Medical Plan: Blood pressure is well-controlled. Continue lisinopril therapy with a blood pressure goal less than 130/80. Advised monitoring blood pressures at home. (3) Dyslipidemia: Code(s): E78.5 - Hyperlipidemia, unspecified Category: Medical Plan: Most recent LDL at 71. Continue with statin therapy with an LDL goal less than 100. Advised heart healthy diet, regular exercise, stress medication strategies, adequate hydration, avoiding caffeinated beverages, and med compliance. This note was generated using voice recognition software. While every effort has been made to ensure accuracy and proper financial reserve clerk, there may be occasional errors that could affect the content or meaning of the described symptoms. Orders: Orders Lyme IgG/IgM w/reflex to WB Today R45.0 - Nervousness, R53.83 - Other fatigue Coding Level of Care Code Est Pt Level 4 (20035) Complex EM visit Add On G2211 Diagnoses Precordial chest pain R07.2 Essential hypertension I10 Dyslipidemia E78.5 Time Spent (min) 31 Comment Time spent in reviewing the chart, test results, assessment, counseling and documentation.
== END 2025-02-15 14:39 | disposition home or self-care (01) ==
LOC: HO.HCS 13:25
PROVIDERS: PCP Internal Medicine
DX: R07.2 Precordial pain (principal); I10 Essential (primary) hypertension; E78.5 Hyperlipidemia, unspecified
CPT/HCPCS: 99214; G2211

== ENCOUNTER → 2025-02-19 08:08 | Outpatient (REF) | payer MEDICARE, BC, SELFPAY ==
--- OUTSIDE RECORDS SUMMARY | 2024-09-14 06:00 | XMS_ITS ---
Author Organization [facility] Address [address] [place] [address] Care Team Providers Care Fast Food Server Name Role Phone Karly Barney Primary Care Provider Lawrence Boss Jr REASON FOR VISIT screening Encounters Encounter Location Date Provider Diagnosis [facility] [place] Out[place] [address] [place], [place] [phone] 09/14/2024 Lawrence Larson Jr Colon cancer screening [...] LEIGHTON MALIN DDOB:[birth year] (69 yo M)Acc No.[id number]:09/14/2024 COLON WITH MAC Patient: Edinson LEIGHTON BERRY Provider: Edinson Larson MD :1955 A ge:69 Y S ex:Male Date:09/14/2024 Address:[address] [place] [address] Pcp:Karly Blanco Subjective: * Chief Complaints: * [...] 09/14/2024 Generated for Sydney guy/Archana/Sonamitting on: 0 02/19/2025 08:55 AM EDT
--- NOTE | 2025-02-19 08:11 | HM_ITS ---
* Total monitoring time 3 days. * Underlying rhythm is sinus with an average rate of 65/Min. * Rare supraventricular ectopy. * Rare ventricular ectopy. * No significant pauses or high-grade AV blocks. * Patient markers associated with sinus rhythm. * Symptoms in patient diary including sick feeling in chest, jitters associated with sinus rhythm. MTDD
--- OUTSIDE RECORDS SUMMARY | 2025-02-19 08:56 | XMS_ITS | Patient Health Record ---
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 Name Role Phone Karly Barney Primary Care [...] Problem Status W/U Status Risk Notes Problem [id number] Colon cancer screening (Z12.11) Active confirmed Vital Signs Temperature 98.6 degrees Fahrenheit 08/20/2024 Blood pressure diastolic 01 mm Hg 08/20/2024 Height 70 in 08/20/2024 Blood pressure systolic 001 mm Hg 08/20/2024 Weight 173.8 lbs 08/20/2024 BMI 24.93 kg/m2 08/20/2024 Encounters Encounter Location Date Provider Diagnosis [facility] [address] [place], [place] [phone] 09/14/2024 Lawrence Larson Jr Colon cancer screening Z12.11 and Personal history of adenomatous and serrated colon polyps Z86.0101 [facility] [address] [place] [address] 08/20/2024 Lawrence Larson Jr Colon cancer screening Z12.11 [facility] [address] [place] [address] 09/12/2024 Lawrence Larson Jr Assessments Encounter Date [...] Date MEDICARE OF [place] [address] [facility] [place] [address] [id number] LEIGHTON MALIN Self - patient is the insured 9 [facility] [address] [place], [place] [phone] [id number] LEIGHTON MALIN Self - patient is the insured Medical (General) History Medical History History ICD Code hyperlipidemia hypertension Palpitations Surgical History Surgery Date(Month/Year) Right inguinal herniorrhaphy 05/06
== END ==
LOC: HO.CARD 08:08
DX: R00.2 Palpitations (principal)
CPT/HCPCS: 93242

== ENCOUNTER → 2025-02-19 08:11 | Outpatient (BNV) | payer MEDICARE, BC, SELFPAY | PROVIDERS: Visit Provider Internal Medicine | DX: I49.3 Ventricular premature depolarization (principal); I49.49 Other premature depolarization | CPT/HCPCS: 93244 ==

== ENCOUNTER 2025-05-02 08:51 | Outpatient (REF) | payer MEDICARE, BC, SELFPAY ==
--- OUTSIDE RECORDS SUMMARY | 2024-09-14 05:00 | XMS_ITS ---
Author Organization [facility] Address [address] [place] [address] Care Team Providers Care Ticket Puller Name Role Phone Karly Barney Primary Care Provider Lawrence Boss Jr [phone] REASON FOR VISIT screening Encounters Encounter Location Date Provider Diagnosis [facility] [address] [address] [place], [place] [phone] 09/14/2024 Lawrence Larson Jr Colon cancer screening Z12.11 and Personal history of adenomatous and serrated colon polyps Z86.0101 Assessments Encounter Date Diagnosis (ICD Code) Assessment Notes Treatment Notes Treatment Clinical Notes Section Notes 09/14/2024 Colon cancer screening (ICD-10 - Z12.11) 09/14/2024 Personal history of adenomatous and serrated colon polyps (ICD-10 - Z86.0101) Plan Of Treatment No Information Progress Notes * LEIGHTON MALIN DDOB:[birth year] (69 yo M)Acc No.[id number]:09/14/2024 COLON WITH MAC Patient: Edinson LEIGHTON BERRY Provider: Edinson Larson MD :1955 A ge:69 Y S ex:Male Date:09/14/2024 Address:[address] [place] [address] Pcp:Karly Blanco Subjective: * Chief Complaints: * S creening Assessment: * Assessment: 1. C olon cancer screening - Z12.11 (Primary) 2 . P ersonal history of adenomatous and serrated colon polyps - Z86.0101 Plan: * Procedure Codes: G 0105 COLOREC CANCR SCR; COLNSCPY HI [id number] INTRVL 3+YRS PTS CLNSCP [id number] RCMND FLW-UP 10 YRS DOCD Billing Information: * Procedure Codes: G0105 COLOREC CANCR SCR; COLNSCPY HI RISK. 0529F INTRVL 3+YRS PTS CLNSCP DOCD. 0528F RCMND FLW-UP 10 YRS DOCD. * The named appointment provid er may or may not be the originator of this progress note, and it is not deemed complete until electronically signed by the appointment provider. Sign off status: Pending * Provider: Edinson Larson MD Date: 0 09/14/2024 Generated for Sydney guy/Archana/Fabian on: 07/02/2024 10:27 AM EST
--- OUTSIDE RECORDS SUMMARY | 2025-05-02 10:28 | XMS_ITS | Patient Health Record ---
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 Name Role Phone Karly Barney Primary Care Provider Lawrence Boss Jr Unavailable Allergies No Known Allergies Reason For Referral No Information Medications Medication SIG (Take, Route, Frequency, Duration) Notes Start Date End Date Status Atorvastatin Calcium 10 MG Tablet TAKE 1 TABLET BY MOUTH DAILY Oral; Duration: 90 Days Active Lisinopril 10 MG Tablet TAKE 1 TABLET BY MOUTH EVERY DAY Oral; Duration: 90 Days Active Immunizations Vaccine Route Administration Date Status Comme nts Influenza Unknown 02/11/2019 Administered Influenza Unknown 04/03/2024 Administered Pneumococcal Unknown 09/15/2018 Administered Social History Tobacco Use: Social History Observation Description Date Details (start date - stop date) Former Smoker NA - NA Social History Drugs/Alcohol: Social Info Question Answer Notes Alcohol Screen Did you have a drink containing alcohol in the past year? No Points 0 Interpretation Negative Tobacco Use: Social Info Question Answer Notes Tobacco Use/Smoking Patient is a former smoker When did you stop smoking? 1973 How long has it been since you last smoked? > 10 years Additional Details Category Social Info Options Details Miscellaneous: Marital status: Occupation: retired Problems Problem Type SNOMED Code ICD Code Onset Dates Problem Status W/U Status Risk Notes Problem Colon cancer screening ([id number]) Colon cancer screening (Z12.11) Active confirmed Vital Signs Temperature 98.6 degrees Fahrenheit 08/20/2024 Blood pressure diastolic 01 mm Hg 08/20/2024 Height 70 in 08/20/2024 Blood pressure systolic 001 mm Hg 08/20/2024 Weight 173.8 lbs 08/20/2024 BMI 24.93 kg/m2 08/20/2024 Encounters Encounter Location Date Provider Diagnosis [facility] [place] [address] [place], [place] [phone] 09/14/2024 Lawrence Larson Jr Colon cancer screening Z12.11 and Personal history of adenomatous and serrated colon polyps Z86.0101 [facility] [address] [place] [address] 08/20/2024 Lawrence Larson Jr Colon cancer screening Z12.11 [facility] [address] [place] [address] 09/12/2024 Lawrence Larson Jr Assessments Encounter Date [...] Date MEDICARE OF [place] [address] [place] [address] [id number] LEIGHTON MALIN Self - patient is the insured 9 [facility] [address] [place], [place] [phone] [id number] LEIGHTON MALIN Self - patient is the insured Medical (General) History Medical History History ICD Code hyperlipidemia hypertension Palpitations Surgical History Surgery Date(Month/Year) Right inguinal herniorrhaphy 05/06
== END 2025-05-02 08:52 | disposition home or self-care (01) ==
LOC: HO.LNP 08:51
PROVIDERS: Visit Provider Student in an Organized Health Care Education/Training Program
DX: R10.13 Epigastric pain (principal)
CPT/HCPCS: 87338

== ENCOUNTER 2025-05-13 13:53 | Emergency (ER) | payer MEDICARE, BC, SELFPAY ==
--- NOTE | 2025-05-13 13:57 | ECG_ITS ---
Test Reason : CHEST PAIN Blood Pressure : */* mmHG Vent. Rate : 71 BPM Atrial Rate : 71 BPM P-R Int : 122 ms QRS Dur : 84 ms QT Int : 384 ms P-R-T Axes : 40 60 52 degrees QTcB Int : 417 ms Artifact in tracing Normal sinus rhythm Probably Normal ECG When compared with ECG of 07-Feb-2025 11:20, No significant change was found Referred By: Elsie Henao Electronically Signed By: AMELIE CHANDLER
[2025-05-13 14:03] VITALS: BP 183/95; PULSE 91; RESP 18; TEMP 36.6; O2SAT 100; BMI 23.9
--- NOTE | 2025-05-13 14:03 | ED_ITS ---
HPI - General Adult General Chief complaint: General Medical Stated complaint: sick in the chest and stomach Time Seen by Provider: 05/13/25 21:03 Source: patient Mode of arrival: ambulatory Limitations: no limitations History of Present Illness ED Provider: Dr. Suzanne Prater HPI narrative: patient comes to the emergency room complaining having a sick feeling to his chest. According to the patient, is not chest pain, no palpitations, not fluttering, not burning sensation. Patient states that he can not describe it. Patient states that this time he does not have any symptoms. Patient states that the symptoms have been intermittent since January. Patient states that back in January he had a thorough workup by process improvement manager, including a stress test and a Holter monitor, and no cardiac etiologies were found. Patient was referred by his primary care physician to Gastroenterology. Unfortunately, patient's appointment is not until early next year, 2025. Patient states that his PCP sent a prescription for omeprazole to help with the symptoms, however, it is not changing any of the symptoms. The patient denies any abdominal pain, denies any GERD sensation at this time. Patient upset that it is hard to get to see his primary care physician and that his GI office visit can not be scheduled sooner. Patient denies syncope, denies near syncope, denies dizziness, denies any recent URI or UTI symptoms, no abdominal pain Related Data Previous Rx's ?Medication ?Instructions ?Recorded atorvastatin 10 mg tablet 10 mg PO DAILY #90 tabs 02/11 10/05 lisinopril 10 mg tablet 10 mg PO DAILY #90 tabs 02/11 11/04 omeprazole 20 mg capsule,delayed 20 mg PO DAILY epigas tric pain #30 04/30/25 release caps Allergies Allergy/AdvReac Type Severity Reaction Status Date / Time No Known Allergies Allergy Verified 05/13/25 14:06 Review of Systems 2 Review of Systems: Constitutional : No Weight loss, No Fever, No Chills, No Night Sweats, No Fatigue, No Malaise ENT/Mouth : No Hearing loss, No Ear Pain, No Nasal Congestion, No Sinus Pain, No Hoarseness, No sore throat, No Rhinorrhea, No Swallowing Difficulty Eyes: No Eye Pain, No Swelling, No Redness, No Foreign Body, No Discharge, No Vision Changes Cardiovascular : Patient complaining of chest sick feeling without any chest pain or pressure, patient states that he is having a difficult time describing what she feels. No SOB, No Dyspnea on Exertion, No Orthopnea, No Edema, No Palpitations Respiratory : No Cough, No Sputum, No Wheezing, No Smoke Exposure, No Dyspnea Gastrointestinal : No Nausea, No Vomiting, No Diarrhea, No Constipation, No abdominal Pain, No Hematochezia, No Melena Genitourinary : no irregular bleeding, No Dysuria, No Urinary Frequency, No Hematuria, No Urinary Incontinence, No Urgency, No Flank Pain, No Urinary Flow Changes, No Hesitancy Musculoskeletal : No joint pain, No Myalgias, No Joint Swelling Skin : No Skin Lesions, No rash Neuro : No Weakness, No Numbness, No Paresthesias, No Loss of Consciousness, No Dizziness, No Headache Psych : patient admits that he does feel anxious due to all his symptoms and being able to see his specialist within the next few days. No Depression, No SI/HI/AH/VH, No Social Issues, Heme/Lymph: No Bruising, No Bleeding,No Lymphadenopathy Endocrine : No Polyuria, No Polydipsia, No Temperature Intolerance [facility] Past Medical History Medical History Dyslipidemia Former smoker Other and unspecified hyperlipidemia Essential hypertension Surgical History Hx of right inguinal hernia repair History of colonoscopy Family History Family History Father HTN (hypertension) Mother Cardiac pacemaker Brother HTN (hypertension) Sister HTN (hypertension) Social History Social History Housing: House Are you a primary career resource specialist to a significant other at home: No Do you presently have visiting nurse or other home services: No Unable to assess alcohol history related to: Unknown Alcohol intake: never Patient Tobacco Use Status: Former Tobacco user Tobacco use type: Cigarette Smoked in Last 30 Days: No e-Cigarette/Vaping Use: Never Used Second Hand Smoke Exposure: No Use of substances other than those prescribed or required for medical reasons: No Advance Directives: No Advance Directives Information Provided: Yes Do you have a plan to hurt others: No Plan service: Yes Current occupational status: retired Current occupational exposures/hazards: No Cognitive needs: No Hearing needs: No Vision needs: Yes Physical Exam ED Exam Exam: Appearance: Alert. does not seem to be in any distress. However, seems a bit confused. Eyes: Pupils equal, round and reactive to light. ENT: Pharynx normal. Neck: Normal inspection. Neck supple. No lymph nodes noted. No crepitus CVS: Normal heart rate and rhythm. Pulses normal. Normal S1 and S2 Respiratory: No respiratory distress. At this time, no wheezing, no rales or crackles Abdomen: Soft and nontender. No rigidity. No distention. Skin: Skin warm and dry. Normal skin color. Normal skin turgor. Extremities: No lower extremity edema. No Lacerations. No Rash Neuro: Oriented X 3. No motor deficit. No sensory deficit. Moving all extremities. No slurred speech. CN 2 through 12 grossly intact Psych: calm, cooperative, normal affect Vital Signs: Vital Signs - 24 hr 05/13/25 14:03 05/13/25 21:06 05/13/25 22:00 Temperature 98 F 97.8 F 97.8 F Pulse Rate 91 61 61 Respiratory Rate 18 16 16 Blood Pressure 183/95 H 149/66 H 149/66 H Pulse Oximetry 100 98 98 Oxygen Delivery Method Room Air Room Air Room Air BMI result Body Mass Index 23.9 Course Course Course Narrative: This is a rapid medical exam performed by Jasmine Henao NP: Additional HPI, ROS, PE not included below will be deferred to primary provider. Patient is a 69y/o M with pmhx of HTN, HLD, former smoker stating that he went for a brisk walk this morning. Around 1 hour later, he got a 'sicky feeling' in his chest, lasts for 1 week, worsens with exertion. States it is not pain. Has been worked up by cardiology, normal stress test 02/08 and Holter monitor, and was referred to GI. Endoscopy is not for 4 mos. Went to PCP who put him on omeprazoel but feels this isn't helping. Symptoms have been ongoing for months. Plan: EKG, labs Medical Decision Making Medical Decision Making MDM Narrative: other than a sick feeling to the chest, patient reports no pain, no palpitations, no pressure, patient does report reflux like sensation without burning my interpretation of labs: No significant acute abnormality in patient's hematology or chemistry, normal LFTs, normal lipase, normal troponin EKG: Poor quality EKG:, sinus rhythm, heart rate 71, no ST segment depression or elevation, no T-wave inversion, QTC 417. I reviewed patient's records from January of 2025 - CTA of the lungs did not show any evidence of pulmonary embolism or infiltrates I reviewed patient's Holter monitor report. Patient with a Holter for 3 days, underlying rhythm is sinus with an average of 65 beats per minute. Patient had rare supraventricular ectopy, ventricular ectopy, no significant arrhythmias detected, when patient reported feeling sick in his chest , the Holter monitor reported jitters associated with sinus rhythm I discussed the above-mentioned with the patient. Patient feels very anxious and angry that he can not get to see his primary care physician when he needs to and he is feeling sick, upset that Cardiology did not find any significant abnormalities in his stress test or Holter monitor. , upset that his canvas goods fabricator once he him until 4 months from now. Patient's seems to be very concerned about having cancer. I had a prolonged discussion with the patient why he thinks he may have cancer. Overall, patient does not have any symptoms that would pinpoint cancer. To ease his concerns, I ordered ordering a CT scan of the chest abdomen pelvis. However, patient states that if I can not guarantee that he will have his CAT scan done and read by Radiology in 1 hour he would do it. However, realistically this is not possible today. Patient declined to get scan. Declined any further blood work. Patient states that he used wants to go home. At this time, patient does not have any chest pain or shortness of breath, no sick feeling to the chest. No dizziness, patient denies any recent syncope or near syncopal episodes I discussed with the patient that we can offer a referral to see his process improvement manager. it is possible that patient may need a longer Holter monitor. The last time the patient had a formed her transthoracic echo echocardiogram was in 2020. as mentioned above, at this time, patient declines any further tests, EKG, blood work, CT scans. patient asymptomatic, blood pressure 149/66, heart rate 61, respirations 16, oxygen saturation 98% on room air Differential Diagnosis Differential Diagnoses: The differential diagnosis associated with the presentation includes Admission/Observation Consideration of admission/observation: Escalation of care including admission/observation considered ( given patient's unclear symptoms unlike him symptoms, observation was considered.) Lab Data MDM Lab Attestation statement: I reviewed the patient's lab results. 05/13/25 14:57 05/13/25 14:57 Labs: Lab Results 05/13/25 Range/Units 14:57 WBC 6.4 (4.8-10.8) X10*3/uL RBC 4.41 L (4.60-5.80) X10*6/uL Hgb 14.1 (14.0-18.0) g/dl Hct 39.9 L (42.0-52.0) % MCV 90.5 (80.0-98.0) fL MCH 32.0 (27.0-33.0) pg MCHC 35.3 (31.0-36.0) g/dl RDW 12.0 (11.0-16.0) % Plt Count 219 (160-400) X10*3/uL MPV 9.1 L (9.4-12.4) fL Immature Gran % (Auto) 0.2 (0.0-0.4) % Neut % (Auto) 64.9 (45-73) % Lymph % (Auto) 25.1 (20-40) % [place] % (Auto) 6.7 (2-11) % Eos % (Auto) 2.6 (0-4) % Baso % (Auto) 0.5 (0-2) % Lymph # (Auto) 1.6 (1.2-4.9) X10*3/uL [place] # (Auto) 0.4 (0.1-1.2) X10*3/uL Eos # (Auto) 0.2 (0.0-0.4) X10*3/uL Baso # (Auto) 0.0 (0.0-0.2) X10*3/uL Abs Immat Gran (auto) 0.01 (0.00-0.03) X10*3/uL Absolute Neuts (auto) 4.2 (2.0-8.3) x10*3/uL Absolute Nucleated RBC 0.000 (0.0-0.012) X10*3/uL Nucleated RBC % (auto) 0.0 (0.0-0.2) /100WBC PT 11.9 (11.2-13.5) SEC INR 1.0 (0.9-1.1) Sodium 143 (135-145) mmol/L Potassium 4.0 (3.3-5.1) mmol/L Chloride 108 (96-108) mmol/L Carbon Dioxide 29 (22-29) mmol/L Anion Gap 10 L (12-20) BUN 19 H (9-16) mg/dL Creatinine 1.38 (0.5-1.4) mg/dL Estim Creat Clear Calc 50.6 Estimated GFR 51 Random Glucose 116 H (60-115) mg/dL Calcium 9.3 (8.4-10.2) mg/dL Magnesium 1.9 (1.6-2.6) mg/dL Total Bilirubin 0.9 (0.0-1.0) mg/dL AST 20 (5-37) U/L ALT 18 (0-40) U/L Alkaline Phosphatase 68 (39-117) U/L Troponin I High Sens < 2.7 (<3.5-35.0) ng/L Total Protein 6.7 (6.5-8.0) g/dL Albumin 4.6 (3.5-5.0) g/dL Lipase 26 (8-78) U/L Independent Interpretation I performed an independent interpretation of an: EKG Discharge Plan Discharge Clinical Impression: Chest discomfort Patient Disposition: Home, Self-Care Instructions: Chest Pain (DC), Epigastric Pain (ED) Additional Instructions: Please follow-up with your primary care physician tomorrow. If you have any worsening or new symptoms, please return to the emergency room or call 911 Prescriptions: No Action atorvastatin 10 mg tablet 10 mg PO DAILY Qty: 90 2RF lisinopril 10 mg tablet 10 mg PO DAILY Qty: 90 3RF omeprazole 20 mg capsule,delayed release(DR/EC) 20 mg PO DAILY Qty: 30 0RF Referrals: Karly Barney MD [Primary Care Provider, Internal Medicine] Niko Ribeiro MD [Physician, Cardiology] Interventions: ED Discharge Assessment Last Done: 05/13/25 22:00 Discharge Date/Time: 05/13/25 22:01 Print Language: Burmese
[2025-05-13 15:01] LABS: MANUAL DIFF FLAG NO
[2025-05-13 15:03] LABS: Hematocrit 39.9 % (42.0-52.0); Hemoglobin 14.1 g/dl (14.0-18.0); Imm Gran Abs Auto 0.01 X10*3/uL (0.00-0.03); Imm Gran Pct Auto 0.2 % (0.0-0.4); Lymphocytes Absolute Auto 1.6 X10*3/uL (1.2-4.9); Mean Corpuscular HGB Conc 35.3 g/dl (31.0-36.0); Mean Corpuscular Hemoglobin 32.0 pg (27.0-33.0); Mean Corpuscular Volume 90.5 fL (80.0-98.0); NRBC Abs Auto 0.000 X10*3/uL (0.0-0.012); NRBC Pct Auto 0.0 /100WBC (0.0-0.2); Platelet Count 219 X10*3/uL (160-400); Red Blood Count 4.41 X10*6/uL (4.60-5.80); White Blood Count 6.4 X10*3/uL (4.8-10.8)
[2025-05-13 15:09] LABS: INTERNATIONAL NORM RATIO 1.0 (0.9-1.1); Prothrombin Time 11.9 SEC (11.2-13.5)
[2025-05-13 15:24] LABS: Alanine Aminotransferase 18 U/L (0-40); Albumin Level 4.6 g/dL (3.5-5.0); Alkaline Phosphatase 68 U/L (39-117); Anion Gap 10 (12-20); Aspartate Amino Transferase 20 U/L (5-37); Blood Urea Nitrogen 19 mg/dL (9-16); Calcium 9.3 mg/dL (8.4-10.2); Carbon Dioxide 29 mmol/L (22-29); Chloride 108 mmol/L (96-108); Creatinine Clr Calc Pharmacy 50.6; Estimated Glomerular Filt Rate 51; Lipase 26 U/L (8-78); Magnesium 1.9 mg/dL (1.6-2.6); Potassium 4.0 mmol/L (3.3-5.1); Sodium 143 mmol/L (135-145); Total Protein 6.7 g/dL (6.5-8.0)
[2025-05-13 15:33] LABS: Troponin-I High Sensitivity < 2.7 ng/L (<3.5-35.0)
[2025-05-13 21:06] VITALS: BP 149/66; PULSE 61; RESP 16; TEMP 36.6; O2SAT 98
[2025-05-13 22:00] VITALS: BP 149/66; PULSE 61; RESP 16; TEMP 36.6; O2SAT 98
== END 2025-05-13 22:01 | disposition home or self-care (01) ==
PROVIDERS: Registered Nurse Emergency; Emergency Provider Emergency Medicine; PCP Internal Medicine
DX: R07.89 Other chest pain (principal); I10 Essential (primary) hypertension; Z87.891 Personal history of nicotine dependence
CPT/HCPCS: 36415; 80053; 83690; 83735; 84484; 85025; 85610; 93005; 99283; 99284

== ENCOUNTER → 2025-05-13 13:57 | Outpatient (BNV) | payer MEDICARE, BC, SELFPAY | PROVIDERS: Emergency Provider Emergency Medicine; PCP Internal Medicine; Visit Provider Internal Medicine | DX: R07.9 Chest pain, unspecified (principal) | CPT/HCPCS: 93010 ==

== ENCOUNTER 2025-05-17 07:44 | Outpatient (AMB) | payer MEDICARE, BC, SELFPAY ==
--- OUTSIDE RECORDS SUMMARY | 2024-09-14 05:00 | XMS_ITS ---
Author Organization [facility] Address [address] [place] [address] Care Team Providers Care Motorsports Technician Name Role Phone Karly Barney Primary Care Provider Lawrence Boss Jr [phone] REASON FOR VISIT screening Encounters Encounter Location Date Provider Diagnosis [facility] [place] [address] [place], [place] [phone] 09/14/2024 Lawrence Larson Jr Colon cancer screening [...] LEIGHTON MALIN DDOB:[birth year] (69 yo M)Acc No.[id number]:09/14/2024 COLON WITH MAC Patient: Edinson LEIGHTON BERRY Provider: Edinson Larson MD :1955 A ge:69 Y S ex:Male Date:09/14/2024 Address:[address] [place] [address] Pcp:Karly Blanco Subjective: * Chief Complaints: * S creening Assessment: * Assessment: 1. C olon cancer screening - Z12.11 (Primary) 2 . P ersonal history of adenomatous and serrated colon polyps - Z86.0101 Plan: * Procedure Codes: G 0105 COLOREC CANCR SCR; COLNSCPY HI [id number] INTRVL 3+YRS PTS CLNSCP [id number] RCMND FLW-UP 10 YRS DOCD Billing Information: [...] 0 09/14/2024 Generated for Sydney guy/Archana/Fabian on: 1 07/18/2024 07:47 AM EST
--- OUTSIDE RECORDS SUMMARY | 2025-05-17 07:48 | XMS_ITS | Patient Health Record ---
Author Organization [facility] Address [address] [place] [address] Care Team Providers Care Line Assembler Aircraft Name Role Phone Karly Barney Primary Care [...] Status Risk Notes Problem Colon cancer screening ([id number]) Colon cancer screening (Z12.11) Active confirmed Vital Signs Temperature 98.6 degrees Fahrenheit 08/20/2024 Blood pressure diastolic 01 mm Hg 08/20/2024 Height 70 in 08/20/2024 Blood pressure systolic 001 mm Hg 08/20/2024 Weight 173.8 lbs 08/20/2024 BMI 24.93 kg/m2 08/20/2024 Encounters Encounter Location Date Provider Diagnosis [facility] [address] [place], [place] [id number] 09/14/2024 Lawrence Larson Jr Colon cancer screening Z12.11 and Personal history of adenomatous and serrated colon polyps Z86.0101 [facility] [address] [place] [phone] 08/20/2024 Lawrence Larson Jr Colon cancer screening Z12.11 [facility] [address] [place] [phone] 09/12/2024 Lawrence Larson Jr Assessments Encounter Date [...] Date MEDICARE OF [place] [address] [place] [address] [id number] LEIGHTON MALIN Self - patient is the insured [address] [facility] [address] [place], [place] [id number] LEIGHTON MALIN Self - patient is the insured Medical (General) History Medical History History ICD Code hyperlipidemia hypertension Palpitations Surgical History Surgery Date(Month/Year) Right inguinal herniorrhaphy 05/06
--- NOTE | 2025-05-17 07:53 | MHC.OFFVIS ---
Vital Signs 05/17/25 07:54 Height 5 ft 10 in Weight 166 lb BMI 23.8 BP 160/74 H Blood Pressure Location Lt brachial Position Sitting Pulse 67 Intake Visit Reasons: chest pain, burning Intake Note: Patient new consult for chest pain with burning sensation Patient cc: feeling sick on his chest, he asking for an EGD, his body is been shaking, nauseas, gassy and discomfort on his esophagus. Patient is having a BS s/c for Tuesday. Global Product Manager Required: No Accompanied by: Self / Same As Patient Allergies No Known Allergies Allergy (Verified 05/17/25 07:53) Medication List - Last Reconciled 05/17/25 by Richelle Martinez CNP atorvastatin 10 mg PO DAILY lisinopril 10 mg PO DAILY omeprazole 20 mg PO DAILY HPI HPI chest pain, burning: Details: Patient is a 69-year-old male with PMH of hypertension, hyperlipidemia. Referred by PCP for further evaluation of epigastric pain. Patient presents with a three-month history of intermittent sick feeling in the chest and epigastric region, described as non-burning discomfort without regurgitation or heartburn. Initial onset occurred following exertion at the gym, prompting cardiac evaluation (negative stress test, Holter monitor), after which symptoms persisted. Episodes entail chest and epigastric sickness, occasional shakiness, and subjective fluttering not related to cardiac causes. Nausea has become more prominent in recent weeks, with occasional triggers noted after emotional stress or physical activity and ingestion of acidic beverages (e.g., coffee). The patient reports increased frequency of symptoms, occasionally experiencing transient relief for weeks before recurrence. Dietary intake is maintained except when nausea is present. Ibuprofen use several times weekly for chest ache. Bowel habits are normal without evidence of GI bleeding. Weight has fluctuated subjectively, though records show stable weight over the past year. Recent history includes skin cancer excision to the neck (basil and squamous, Mohs procedure), and past hernia repair. . No family history of GI malignancy. Patient denies: fever/chills, n/v, pyrosis, regurgitation,dysphasia, ab pain or melena/hematochezia. Social hx: -denies ETOH use -denies recreational drug use -former smoker, cessation 30+ years ago - family hx as below -tolerated anesthesia in the past without difficulty. [facility] Medical History (Updated 05/17/25 @ 09:57 by Richelle Martinez CNP) Cholelithiasis Dyslipidemia Former smoker Other and unspecified hyperlipidemia Essential hypertension Surgical History Hx of right inguinal hernia repair History of colonoscopy Family History Father HTN (hypertension) Mother Cardiac pacemaker Brother HTN (hypertension) Sister HTN (hypertension) Social History Housing: House Are you a primary summer child caregiver to a significant other at home: No Do you presently have visiting nurse or other home services: No Alcohol intake: never Patient Tobacco Use Status: Former Tobacco user Tobacco use type: Cigarette e-Cigarette/Vaping Use: Never Used Second Hand Smoke Exposure: No service: Yes Current occupational status: retired Current occupational exposures/hazards: No Cognitive needs: No Hearing needs: No Vision needs: Yes Review of Systems Const Reports as per HPI ENT Reports as per HPI Card Reports as per HPI Resp Reports as per HPI GI Reports as per HPI Reports as per HPI Physical Exam Vital Signs: BMI result Body Mass Index 23.8 Const General: healthy appearing, no acute distress and well developed Nutritional Appearance: average body habitus Orientation/consciousness: patient oriented x3 HEENT Head: Yes normal to inspection, Yes normocephalic and Yes atraumatic Face and sinus: Yes normal facial exam Mouth: Normal oral and palatal mucosa present Throat: Yes posterior oropharynx normal Eyes General: appearance normal, both eyes and all related structures Neck Neck: Yes normal visual inspection Lymphatic: no lymphadenopathy noted Resp Effort & Inspection: normal respiratory effort, able to speak in complete sentences, no tracheal deviation and symmetric chest movement Cardio Jugular venous distension: no JVD GI Inspection: Yes normal to inspection and No distended Palpation (GI): Soft to palpation, not firm, nontender and No hepatosplenomegaly present Auscultation: normal bowel sounds Neuro General: patient oriented x3 Gait exam (Neuro): Normal gait present Psych Appearance: grossly normal Mental Status: mental status grossly normal Speech and movement: Normal speech and movement present Affect: Anxious affect present and Irritable affect present Attitude: cooperative Thought process: Normal thought process present Thought content: Normal thought content present Insight: Good insight present (Psych) Judgement: Good judgement present (Psych) Results Reviewed Results Reviewed: Laboratory Tests 05/13/25 14:57 WBC 6.4 RBC 4.41 L Hgb 14.1 Hct 39.9 L MCV 90.5 MCH 32.0 MCHC 35.3 RDW 12.0 Plt Count 219 MPV 9.1 L Sodium 143 Potassium 4.0 Chloride 108 Carbon Dioxide 29 Anion Gap 10 L BUN 19 H Creatinine 1.38 Estim Creat Clear Calc 50.6 Estimated GFR 51 Random Glucose 116 H Calcium 9.3 Magnesium 1.9 Total Bilirubin 0.9 AST 20 ALT 18 Alkaline Phosphatase 68 Total Protein 6.7 Albumin 4.6 Lipase 26 Date of Service: 02/07/25 Procedure(s): CT angio chest PE protocol Accession Number(s): [id number] cc: Marie Bond; Karly Barney MD~ Report Number: [id number]: Total DLP = 269.00 mGy-cm CLINICAL HISTORY: SOB, near syncope --- Additional Notes or Special Instructions: waiting for iv @1615 CT angiogram chest/pulmonary arteries with contrast Multiplanar reconstructions and MIPS Comparison: None Findings: Lung apices and upper lobes not fully imaged. No filling defects are noted to suggest pulmonary embolus. Main pulmonary artery normal in caliber. Thoracic aorta normal caliber but not fully opacified. No coronary calcifications. No significant focal parenchymal abnormalities. No significant mediastinal or hilar adenopathy. No free pleural fluid. No acute bony abnormality noted. Cholelithiasis with nonspecific distention. Consider follow-up gallbladder ultrasound. Impression: No evidence of pulmonary embolus Cholelithiasis with gallbladder distention Consider ultrasound DATE OF SERVICE: 09/14/2024 SURGEON: Lawrence Larson MD INDICATIONS: Colon cancer screening and prior history of adenomatous colon polyps. PREOPERATIVE DIAGNOSIS: POSTOPERATIVE DIAGNOSIS: PROCEDURE PERFORMED: Colonoscopy to terminal ileum. ESTIMATED BLOOD LOSS: COMPLICATIONS: ANESTHESIA: Monitored anesthesia care. ASSISTANTS: SPECIMENS: DESCRIPTION OF PROCEDURE: History and physical performed. The risks and benefits of the procedure were explained to the patient. Informed consent was obtained. The patient was placed in the left lateral decubitus position. A digital rectal exam was performed and was found to be normal. The Olympus pediatric videocolonoscope was introduced into the rectum and advanced to the cecum. The cecum was identified by transillumination, palpation, and identification of ileocecal valve. Examination was performed. The scope was removed. He tolerated the procedure well and was returned to recovery area in stable condition. FINDINGS: The terminal ileum was examined and appeared normal. The visualized colonic mucosa was normal. The quality of the prep was good. No polyps were identified. Retroflexed examination showed some small internal hemorrhoids. IMPRESSION: Normal colonoscopy. RECOMMENDATION: 1. Follow up as needed. 2. Repeat colonoscopy is recommended in 10 years for average-risk individuals. This is optional based on age. Assessment & Plan Assessment & Plan (1) Epigastric pain: Comment: 09/14/2024 colonoscopy (Dr. Larson) complete adequate prep-small internal hemorrhoids, otherwise normal colonoscopy. Recommendation for repeat in 10 years ( 2034). Code(s): R10.13 - Epigastric pain Category: Medical Plan: Recent frequent NSAID use; symptoms compatible (nausea, epigastric pain), H. pylori negative; no classic reflux symptoms but possible atypical presentation. Patient displays significant frustration and anxiety regarding delays in care and symptom persistence; discussed care coordination and administrative barriers. No red flag GI symptoms (no hematemesis, melena, anemia, or dysphagia). Additional Testing: - Upper GI series scheduled (05-20-2025). - Upper endoscopy ordered, pending scheduling and further symptom evolution. Medication Management: - Initiate sucralfate BID as needed. Patient instructed on sucralfate dosing and medication interactions (separation from antacids, statin, and antihypertensive by 2 hrs) - Cease omeprazole (discontinued). - Avoid NSAIDs/aspirin; acetaminophen for pain control if needed. Lifestyle Recommendations: - Avoid NSAIDs and GI-irritants (coffee, spicy/fatty foods). - Maintain healthy diet, avoid late meals, minimize stress and emotional triggers. Follow-Up: - Review results of imaging and endoscopy at next office visit. Phone call for UGI results, per patient?s preference - Reassess after diagnostic workup. (2) Cholelithiasis: Code(s): K80.20 - Calculus of gallbladder without cholecystitis without obstruction Category: Medical Qualifiers: Cholelithiasis location: gallbladder Cholecystitis presence: without cholecystitis Biliary obstruction: without biliary obstruction Qualified Code(s): K80.20 - Calculus of gallbladder without cholecystitis without obstruction Plan: Gallstones noted on 02/07/25 CT angiogram and prior ab imaging from Fall 2023; symptoms consistent with intermittent biliary pain, nausea aggravated by activity, no RUQ pain. Additional Testing: - Abd US ordered (urgent) to evaluate gallstones and cholecystitis. Medication Management: - Sucralfate BID prn as symptom control (initiated). - Discontinued NSAIDs; avoid ibuprofen due to GI risk. Lifestyle Recommendations: - Continue low-fat, whole-grain diet. - Avoid triggers: acidic beverages (coffee); avoid overeating, don?t eat then lie down. - Hydrate as tolerated. Follow-Up: - Await US results; radiology to schedule and report. - Provider follow-up call post-US; reassess management. Plan Follow-up after U/S or sooner as needed Time: I spent a total of 38 minutes on the date of encounter which includes: Preparing to see the patient (reviewed previous documentation, test results and medical history) Performing a medically appropriate exam and/or evaluation Ordering medications, tests, and procedures Documenting clinical information in the health record Orders: Orders US abdomen complete Today R10.13 - Epigastric pain Referrals GI Procedure Notification R10.13 - Epigastric pain, R11.0 - Nausea Medications: New sucralfate Take 10mL up to twice daily as needed upset stomach 1 g (10 mL) PO BID PRN 500 mL 0RF acid reflux Discontinued omeprazole Discontinued Reason: No Longer Medically Relevant 20 mg PO DAILY 30 caps 0RF epigastric pain Coding Level of Care Code New Pt New Pt Level 3 (52058) Patient Type New Diagnoses Epigastric pain R10.13 Calculus of gallbladder without cholecystitis without obstruction K80.20 Cholelithiasis location: gallbladder Cholecystitis presence: without cholecystitis Biliary obstruction: without biliary obstruction
[2025-05-17 07:54] VITALS: BP 160/74; PULSE 67; BMI 23.8
== END 2025-05-17 08:35 | disposition home or self-care (01) ==
LOC: HO.HGI 07:45
PROVIDERS: PCP Internal Medicine; Visit Provider Nurse Practitioner Family
DX: R10.13 Epigastric pain (principal); K80.20 Calculus of gallbladder without cholecystitis without obstruction
CPT/HCPCS: 99203

== ENCOUNTER → 2025-05-17 07:44 | Outpatient (BNVA) | payer MEDICARE, BC, SELFPAY | PROVIDERS: PCP Internal Medicine; Visit Provider Nurse Practitioner Family | DX: K80.20 Calculus of gallbladder without cholecystitis without obstruction (principal); R11.0 Nausea; R10.13 Epigastric pain | CPT/HCPCS: 99202 ==

== ENCOUNTER 2025-05-20 10:38 | Outpatient (REF) | payer MEDICARE, BC, SELFPAY ==
--- OUTSIDE RECORDS SUMMARY | 2024-09-14 05:00 | XMS_ITS ---
Author Organization [facility] Address [address] [place] [address] Care Team Providers Care Livestock Yard Supervisor Name Role Phone Karly Barney Primary Care Provider Lawrence Boss Jr REASON FOR VISIT screening Encounters Encounter Location Date Provider Diagnosis [facility] [place] [address] [place], [place] [phone] 09/14/2024 Lawrence Larson Jr Colon cancer screening [...] LEIGHTON MALIN DDOB:[birth year] (69 yo M)Acc No.[id number]:09/14/2024 COLON WITH MAC Patient: Edinson LEIGHTON BERRY Provider: Edinson Larson MD :1955 A ge:69 Y S ex:Male Date:09/14/2024 Address:[address] [place] [address] Pcp:Karly Blanco Subjective: * Chief Complaints: * S creening Assessment: * Assessment: 1. C olon cancer screening - Z12.11 (Primary) 2 . P ersonal history of adenomatous and serrated colon polyps - Z86.0101 Plan: * Procedure Codes: G 0105 COLOREC CANCR SCR; COLNSCPY HI [id number] INTRVL 3+YRS PTS CLNSCP [id number] RCMND FLW-UP 10 YRS DOCD Billing Information: [...] 09/14/2024 Generated for Sydney guy/Archana/Fabian on: 1 07/21/2024 05:44 PM EST
--- NOTE | ~2025-05-20 | FL_ITS ---
EXAMINATION: XR FLUOROSCOPY UPPER GI SERIES CLINICAL INFORMATION: Patient complaining of epigastric pain and burning sensation radiating into lower chest, episodic, associated sometimes with exertion. Patient was seen in the emergency department and cardiac etiology was ruled out. COMPARISON: No prior. TECHNIQUE: Fluoroscopic air contrast upper GI examination was performed utilizing standard techniques with thin and thick barium and effervescent granules. Numerous spot images were obtained. Several fluoroscopic image hold cine sequences were also obtained. FINDINGS: UPPER GI SERIES: Lateral cine images of the oropharynx and hypopharynx demonstrate normal swallow mechanism with normal epiglottic inversion and soft palate elevation. No laryngeal penetration, glottic or subglottic aspiration identified. No nasopharyngeal reflux present. Hypopharyngeal structures appear normal without evidence of mass or diverticulum. There was no significant cricopharyngeal achalasia. Dual and single contrast images of the esophagus demonstrate normal caliber, contour, and mucosal pattern. No evidence of stricture, mass, or ulcerations identified. Esophageal peristalsis was mildly disordered. There is a small type I hiatus hernia. There was episodic gastroesophageal reflux present to the level of the thoracic inlet. Dual contrast and single contrast images of the stomach demonstrated normal contour. No evidence of mass or gross ulcer. There was thickening of the areae gastricae, and multiple tiny foci of contrast pooling within the stomach, findings suggesting small submucosal abscess ulcers/erosive gastritis. Mild gastric rugal fold thickening present. Contrast freely passed into the gastric antrum and duodenal bulb without delay. Single and air-contrast images of the duodenal bulb demonstrate no abnormality. The duodenal sweep has a normal appearance, course, and mucosal fold appearance. Incidental note made of rapid transit of contrast into the right colon, which occurred in approximately 4 minutes. The imaged small bowel has a normal mucosal fold pattern. FLUOROSCOPY TIME: 3 minutes, 29 seconds Number of Spot Images:9 Number of cines obtained: 16 DOSE AREA PRODUCT: 2960 uGy-m2 (microgray-meter squared) FL/FL upper GI w air IMPRESSION: 1. Mildly disordered esophageal peristalsis. No evidence of esophageal spasm. 2. Small type I hiatus hernia. 3. Episodic gastroesophageal reflux identified to the level of the thoracic inlet. 4. Findings suggestive of mild erosive gastritis. Suggest correlation with EGD. 5. Incidental note made of rapid transit of contrast into the right colon, occurring approximately 4 minutes. Electronically signed by: González Sim MD 05/20/2025 12:00 PM JEFF JEFF
--- OUTSIDE RECORDS SUMMARY | 2025-05-20 17:45 | XMS_ITS | Patient Health Record ---
Author Organization [facility] Address [address] [place] [address] Care Team Providers Care Line Tender Name Role Phone Karly Barney Primary Care [...] Status Risk Notes Problem Colon cancer screening ([id number]) Colon cancer screening (Z12.11) Active confirmed Vital Signs Temperature 98.6 degrees Fahrenheit 08/20/2024 Blood pressure diastolic 01 mm Hg 08/20/2024 Height 70 in 08/20/2024 Blood pressure systolic 001 mm Hg 08/20/2024 Weight 173.8 lbs 08/20/2024 BMI 24.93 kg/m2 08/20/2024 Encounters Encounter Location Date Provider Diagnosis [facility] [address] [place], [place] [phone] 09/14/2024 Lawrence Larson Jr Colon cancer screening Z12.11 and Personal history of adenomatous and serrated colon polyps Z86.0101 [facility] [address] [place] [phone] 08/20/2024 Lawrence Larson Jr Colon cancer screening Z12.11 [facility] [address] [place] [phone] 09/12/2024 Lawrence Larson Jr Assessments Encounter Date [...] [place] [address] [place] [address] [id number] LEIGHTON MALIN Self - patient is the insured 9 [facility] [address] [place], [place] [id number] LEIGHTON MALIN Self - patient is the insured Medical (General) History Medical History History ICD Code hyperlipidemia hypertension Palpitations Surgical History Surgery Date(Month/Year) Right inguinal herniorrhaphy 05/06
== END 2025-05-20 10:39 | disposition home or self-care (01) ==
LOC: HO.XRAY 10:38
PROVIDERS: PCP Internal Medicine; Visit Provider Internal Medicine
DX: R10.13 Epigastric pain (principal)
CPT/HCPCS: 74246

== ENCOUNTER → 2025-05-20 10:39 | Outpatient (BNV) | payer MEDICARE, BC, SELFPAY | PROVIDERS: PCP Internal Medicine; Visit Provider Radiology Diagnostic Radiology | DX: R10.13 Epigastric pain (principal); K44.9 Diaphragmatic hernia without obstruction or gangrene | CPT/HCPCS: 74246 ==

== ENCOUNTER 2025-05-29 14:14 | Outpatient (AMB) | payer MEDICARE, BC, SELFPAY ==
--- OUTSIDE RECORDS SUMMARY | 2024-09-14 05:00 | XMS_ITS ---
Author Organization [facility] Address [address] [place] [address] Care Team Providers Care Foreign Law Consultant Name Role Phone Karly Barney Primary Care Provider Lawrence Boss Jr [phone] REASON FOR VISIT screening Encounters Encounter Location Date Provider Diagnosis [facility] [place] [address] [place], [place] [phone] 09/14/2024 Lawrence Larson Jr Colon cancer screening [...] LEIGHTON MALIN DDOB:[birth year] (69 yo M)Acc No.[id number]:09/14/2024 COLON WITH MAC Patient: Edinson LEIGHTON BERRY Provider: Edinson Larson MD :1955 A ge:69 Y S ex:Male Date:09/14/2024 Address:[address] [place] [address] Pcp:Karly Blanco Subjective: * Chief Complaints: * S creening Assessment: * Assessment: 1. C olon cancer screening - Z12.11 (Primary) 2 . P ersonal history of adenomatous and serrated colon polyps - Z86.0101 Plan: * Procedure Codes: G 0105 COLOREC CANCR SCR; COLNSCPY HI [id number] INTRVL 3+YRS PTS CLNSCP [id number] RCMND FLW-UP 10 YRS DOCD Billing Information: [...] 09/14/2024 Generated for Sydney guy/Archana/Fabian on: 1 07/30/2024 07:04 PM EST
--- NOTE | 2025-05-29 14:29 | A.OFFVIS_ITS ---
Vital Signs 05/29/25 14:32 Height 5 ft 10 in Weight 170 lb 3.15 oz BMI 24.4 BP 130/60 Blood Pressure Location Lt brachial Position Sitting Pulse 76 Pulse Source Pulse Oximeter Intake Visit Reasons: 2 week f/up c d/c Intake Note: 2wk f/up hmc/ dc Sheet Rock Installer Required: No Accompanied by: Self / Same As Patient Allergies No Known Allergies Allergy (Verified 05/17/25 07:53) Medication List - Last Reconciled 05/29/25 by Candelario Cardenas NP atorvastatin 10 mg PO DAILY lisinopril 10 mg PO DAILY sucralfate 1 g (10 mL) PO BID PRN HPI Comments Details: This is a 69-year-old male patient coming in for a hospital discharge follow-up. Patient with history of hypertension and hyperlipidemia we had been seen in the office previously for chest discomfort with numbness and tingling down his extremities 15 to half an hour after exertion. Patient had undergone a Holter and a stress test which were both negative. Given his ongoing symptoms, we had also checked a line tighter and that was negative. Patient was seen by his PCP after this where they tried some omeprazole for questions of GERD and referred to gastroenterology. Patient states that he took omeprazole with no benefit at all and therefore stop taking it. Patient recently was in the emergency room for chest discomfort which patient describes as a pain in his epigastric area. Patient states that since discharge he had another episode recently where he drank some coffee and felt that pain in his epigastric region radiating down to his abdomen. Patient was started on sucralfate by GI and is planned for GI workup in the near future. Patient does have severe anxiety and therefore is here today to discuss about his chest discomfort. Patient is otherwise denying any associated symptoms of shortness of breath, palpitations, dizziness, orthopnea, PND, leg edema, presyncope or syncope. [facility] Medical History Cholelithiasis Dyslipidemia Former smoker Other and unspecified hyperlipidemia Essential hypertension Surgical History Hx of right inguinal hernia repair History of colonoscopy Family History Father HTN (hypertension) Mother Cardiac pacemaker Brother HTN (hypertension) Sister HTN (hypertension) Social History Housing: House Are you a primary healthcare manager to a significant other at home: No Do you presently have visiting nurse or other home services: No Alcohol intake: never Patient Tobacco Use Status: Former Tobacco user Tobacco use type: Cigarette e-Cigarette/Vaping Use: Never Used Second Hand Smoke Exposure: No service: Yes Current occupational status: retired Current occupational exposures/hazards: No Cognitive needs: No Hearing needs: No Vision needs: Yes Review of Systems Const Denies chills, Denies fatigue, Denies fever(s), Denies frequent falls, Denies weakness, Denies weight gain and Denies weight loss ENT Denies dizziness Card Denies chest pain, Denies leg edema, Denies lightheadedness, Denies palpitations, Denies dyspnea and Denies dyspnea on exertion Resp Denies cough, Denies dyspnea and Denies dyspnea on exertion GI Denies hematochezia Musc Denies abnormal gait, Denies muscle weakness, Denies numbness, Denies radiating pain into limb and Denies tingling Neuro Denies abnormal gait, Denies dizziness, Denies frequent falls, Denies numbness, Denies tingling and Denies weakness Endo Denies fatigue and Denies palpitations Physical Exam Vital Signs: Last Vital Signs Pulse 76 05/29/25 14:32 BP 130/60 05/29/25 14:32 BMI result Body Mass Index 24.4 Const General: cooperative, healthy appearing, comfortable and no acute distress Orientation/consciousness: patient oriented x3 HEENT Head: Yes normal to inspection Neck Neck: Yes normal visual inspection, Yes trachea midline and Yes supple Chest Chest palpation & inspection: normal inspection of the chest Resp Effort & Inspection: normal respiratory effort Auscultation: clear to auscultation bilaterally, no crackles, no rales, no rhonchi and no wheezes Cardio Jugular venous distension: no JVD Palpation: normal PMI Rate: regular rate Rhythm: regular rhythm Heart sounds: S1 normal heart sound present, S2 normal heart sound present, no click, no gallops, no murmurs and no rubs Peripheral pulses: Peripheral pulses 2+ throughout GI Inspection: Yes normal to inspection Palpation (GI): Soft to palpation Auscultation: normal bowel sounds Skin General skin exam: no rashes or lesions noted Neuro General: patient oriented x3 Extrem General: Yes normal to inspection, No no pedal edema and No calf tenderness Psych Appearance: grossly normal Mental Status: mental status grossly normal Speech and movement: Normal speech and movement present Assessment & Plan Assessment & Plan (1) Precordial chest pain: Code(s): R07.2 - Precordial pain Category: Medical Plan: 02/08/2025-patient underwent a stress test with moderate amount of workload without any chest pain or EKG changes. 02/19/2025-Holter study showed underlying sinus rhythm with rare PACs and PVCs. Patient's marker associated with sinus rhythm. Given above finding and his atypical features, less likely cardiac etiology for his chest discomfort. We will get a coronary calcium score. Advised patient that his symptoms sound more GI in nature and therefore advised to avoid foods that is triggering his symptoms. Patient understanding of the plan. (2) Essential hypertension: Code(s): I10 - Essential (primary) hypertension Category: Medical Plan: Blood pressure is well-controlled. Continue lisinopril therapy with a blood pressure goal less than 130/80. Advised monitoring blood pressures at home. (3) Dyslipidemia: Code(s): E78.5 - Hyperlipidemia, unspecified Category: Medical Plan: Most recent LDL at 71. Continue with statin therapy with an LDL goal less than 100. Advised heart healthy diet, regular exercise, stress mitigation strategies, adequate hydration, avoiding caffeinated beverages, and med compliance. This note was generated using voice recognition software. While every effort has been made to ensure accuracy and proper paver installer, there may be occasional errors that could affect the content or meaning of the described symptoms. Orders: Orders CT Coronary Calcium Score Today R07.2 - Precordial pain Coding Level of Care Code Est Pt Level 4 (40936) Add On Problem Visit Only Diagnoses Precordial chest pain R07.2 Essential hypertension I10 Dyslipidemia E78.5 Time Spent (min) 31 Comment Time spent in reviewing the chart, test results, assessment, counseling and documentation.
[2025-05-29 14:32] VITALS: BP 130/60; PULSE 76; BMI 24.4
--- OUTSIDE RECORDS SUMMARY | 2025-05-29 19:04 | XMS_ITS | Patient Health Record ---
Author Organization [facility] Address [address] [place] [address] Care Team Providers Care Lyft Driver Name Role Phone Karly Barney Primary Care [...] Status Risk Notes Problem Colon cancer screening ([id number]) Colon cancer screening (Z12.11) Active confirmed Vital Signs Temperature 98.6 degrees Fahrenheit 08/20/2024 Blood pressure diastolic 01 mm Hg 08/20/2024 Height 70 in 08/20/2024 Blood pressure systolic 001 mm Hg 08/20/2024 Weight 173.8 lbs 08/20/2024 BMI 24.93 kg/m2 08/20/2024 Encounters Encounter Location Date Provider Diagnosis [facility] [address] [place], [place] [phone] 09/14/2024 Lawrence Larson Jr Colon cancer screening Z12.11 and Personal history of adenomatous and serrated colon polyps Z86.0101 [facility] [address] [place] [phone] 08/20/2024 Lawrence Larson Jr Colon cancer screening Z12.11 [facility] [address] [place] [phone] 09/12/2024 Lawrence Larson Jr Assessments Encounter Date [...] [place] [address] [place] [address] [id number] LEIGHTON MALIN Self - patient is the insured 9 [facility] [address] [place], [place] [id number] LEIGHTON MALIN Self - patient is the insured Medical (General) History Medical History History ICD Code hyperlipidemia hypertension Palpitations Surgical History Surgery Date(Month/Year) Right inguinal herniorrhaphy 05/06
== END 2025-05-29 14:49 | disposition home or self-care (01) ==
LOC: HO.HCS 14:15
PROVIDERS: PCP Internal Medicine
DX: R07.2 Precordial pain (principal); I10 Essential (primary) hypertension; E78.5 Hyperlipidemia, unspecified
CPT/HCPCS: 99214; G2211

== ENCOUNTER → 2025-05-29 14:14 | Outpatient (BNVA) | payer MEDICARE, BC, SELFPAY | PROVIDERS: PCP Internal Medicine | DX: R07.2 Precordial pain (principal); I10 Essential (primary) hypertension; E78.5 Hyperlipidemia, unspecified | CPT/HCPCS: 99212 ==

== ENCOUNTER 2025-06-04 08:05 | Outpatient (REF) | payer MEDICARE, BC, SELFPAY ==
--- OUTSIDE RECORDS SUMMARY | 2024-09-14 05:00 | XMS_ITS ---
Author Organization [facility] Address [address] [place] [address] Care Team Providers Care Mechanical Engineering Technologist Name Role Phone Karly Barney Primary Care Provider Lawrence Boss Jr [phone] REASON FOR VISIT screening Encounters Encounter Location Date Provider Diagnosis [facility] [place] [address] [place], [place] [phone] 09/14/2024 Lawrence Larson Jr Colon cancer screening [...] LEIGHTON MALIN DDOB:[birth year] (69 yo M)Acc No.[id number]:09/14/2024 COLON WITH MAC Patient: Edinson LEIGHTON BERRY Provider: Edinson Larson MD :1955 A ge:69 Y S ex:Male Date:09/14/2024 Address:[address] [place] [address] Pcp:Karly Blanco Subjective: * Chief Complaints: * S creening Assessment: * Assessment: 1. C olon cancer screening - Z12.11 (Primary) 2 . P ersonal history of adenomatous and serrated colon polyps - Z86.0101 Plan: * Procedure Codes: G 0105 COLOREC CANCR SCR; COLNSCPY HI [id number] INTRVL 3+YRS PTS CLNSCP [id number] RCMND FLW-UP 10 YRS DOCD Billing Information: [...] 0 09/14/2024 Generated for Sydney guy/Archana/Fabian on: 08/05/2024 08:08 AM EST
--- NOTE | ~2025-06-04 | US_ITS ---
CLINICAL HISTORY: R10.13 - Epigastric pain --- Additional Notes or Special Instructions: cholelithiasis US abdomen complete Comparison: CT/TN/SR - CT ABDOMEN PELVIS WITHOUT IV CONTRAST - 03/21/24 10:53 EDT US/SR - US ABDOMEN LIMITED - 02/28/24 08:08 EDT Findings: The visualized pancreas is normal. The visualized aorta and inferior vena cava are normal caliber. Calcified atherosclerotic plaques of the abdominal aorta. The liver is normal in size, right lobe length is 14.7 cm. Normal echogenicity of the liver parenchyma, no focal lesion is seen. No intrahepatic bile duct dilatation. The common duct is 6 mm in diameter. Physiologic distention of the gallbladder, 1 cm non mobile stone in the gallbladder neck, no gallbladder wall thickening, negative sonographic Boyd's sign. The main portal vein is patent with antegrade flow. The right kidney is normal, 10.8 cm in length. The left kidney is normal, 10.0 cm in length. The spleen is normal, 9.6 cm in length. No free fluid in the abdomen. Impression: Cholelithiasis, the 1 cm stone in the gallbladder neck is non-mobile and probably impacted, no acute inflammation. This document has been electronically signed by: Shy Langston MD on 06/05/2025 15:35:39
--- OUTSIDE RECORDS SUMMARY | 2025-06-04 08:08 | XMS_ITS | Patient Health Record ---
Author Organization [facility] Address [address] [place] [address] Care Team Providers Care Die Cutter Diamond Name Role Phone Karly Barney Primary Care [...] Status Risk Notes Problem Colon cancer screening (310415208) Colon cancer screening (Z12.11) Active confirmed Vital Signs Temperature 98.6 degrees Fahrenheit 08/20/2024 Blood pressure diastolic 01 mm Hg 08/20/2024 Height 70 in 08/20/2024 Blood pressure systolic 001 mm Hg 08/20/2024 Weight 173.8 lbs 08/20/2024 BMI 24.93 kg/m2 08/20/2024 Encounters Encounter Location Date Provider Diagnosis [facility] Outpatient [address] [place], [place] [phone] 09/14/2024 Lawrence Larson Jr Colon cancer screening Z12.11 and Personal history of adenomatous and serrated colon polyps Z86.0101 [facility] [address] [place] [phone] 08/20/2024 Lawrence Larson Jr Colon cancer screening Z12.11 [facility] [address] [place] [phone] 09/12/2024 Lawrence Larson Jr Assessments Encounter Date [...] [place] [address] [place] [address] [id number] LEIGHTON MALIN Self - patient is the insured 9 [facility] [address] [place], [place] [phone] [id number] LEIGHTON MALIN Self - patient is the insured Medical (General) History Medical History History ICD Code hyperlipidemia hypertension Palpitations Surgical History Surgery Date(Month/Year) Right inguinal herniorrhaphy 05/06
[2025-06-04 11:02] LABS: Alanine Aminotransferase 17 U/L (0-40); Albumin Level 4.3 g/dL (3.5-5.0); Alkaline Phosphatase 65 U/L (39-117); Anion Gap 9 (12-20); Aspartate Amino Transferase 22 U/L (5-37); Blood Urea Nitrogen 20 mg/dL (9-16); Calcium 9.4 mg/dL (8.4-10.2); Carbon Dioxide 29 mmol/L (22-29); Chloride 108 mmol/L (96-108); Cholesterol 117 mg/dL (<200); Estimated Glomerular Filt Rate > 60; HDL Cholesterol 46 mg/dL (>40); Potassium 4.1 mmol/L (3.3-5.1); Sodium 142 mmol/L (135-145); Total Protein 6.4 g/dL (6.5-8.0); Triglycerides 55 mg/dL (<150)
== END 2025-06-04 08:06 | disposition home or self-care (01) ==
LOC: HO.HMGCX 08:05
PROVIDERS: Absent Provider Internal Medicine; PCP Internal Medicine; Visit Provider Nurse Practitioner Family
DX: Z00.00 Encounter for general adult medical examination without abnormal findings (principal); R10.13 Epigastric pain; E78.5 Hyperlipidemia, unspecified; K80.20 Calculus of gallbladder without cholecystitis without obstruction
CPT/HCPCS: 36415; 76700; 80053; 80061

== ENCOUNTER → 2025-06-04 08:08 | Outpatient (BNV) | payer MEDICARE, BC, SELFPAY | PROVIDERS: Absent Provider Internal Medicine; PCP Internal Medicine; Visit Provider Radiology Diagnostic Radiology | DX: R10.13 Epigastric pain (principal); K80.20 Calculus of gallbladder without cholecystitis without obstruction | CPT/HCPCS: 76700 ==

== ENCOUNTER 2025-06-07 08:25 | Outpatient (AMB) | payer MEDICARE, BC, SELFPAY ==
--- OUTSIDE RECORDS SUMMARY | 2024-09-14 05:00 | XMS_ITS ---
Author Organization [facility] Address [address] [place] [address] Care Team Providers Care Director Hr Communications Name Role Phone Karly Barney Primary Care Provider Lawrence Boss Jr REASON FOR VISIT screening Encounters Encounter Location Date Provider Diagnosis [facility] [address] [place], [place] [phone] 09/14/2024 Lawrence Larson Jr Colon cancer screening [...] LEIGHTON MALIN DDOB:[birth year] (69 yo M)Acc No.[id number]:09/14/2024 COLON WITH MAC Patient: Edinson LEIGHTON BERRY Provider: Edinson Larson MD :1955 A ge:69 Y S ex:Male Date:09/14/2024 Address:[address] [place] [address] Pcp:Karly Blanco Subjective: * Chief Complaints: * S creening Assessment: * Assessment: 1. C olon cancer screening - Z12.11 (Primary) 2 . P ersonal history of adenomatous and serrated colon polyps - Z86.0101 Plan: * Procedure Codes: G 0105 COLOREC CANCR SCR; COLNSCPY HI [id number] INTRVL 3+YRS PTS CLNSCP [id number] RCMND FLW-UP 10 YRS DOCD Billing Information: [...] 0 09/14/2024 Generated for Sydney guy/Archana/Fabian on: 08/08/2024 08:28 AM EST
--- NOTE | 2025-06-07 08:26 | MHC.OFFVIS ---
Intake Visit Reasons: US results Intake Note: Patient telehealth follow up for US results. Patient cc: nauseas with new med, abdominal discomfort, and better appetite. [employer] Required: No Accompanied by: Self / Same As Patient Allergies No Known Allergies Allergy (Verified 06/07/25 08:25) HPI HPI US results: Details: Patient is a 69-year-old male with PMH of hypertension, hyperlipidemia. Video visit follow-up on his recent ultrasound. He continues to experience nausea and chest/epigastric discomfort, which appears to be exacerbated by physical exertion. Approximately one week ago, on the , he was advised to restart omeprazole. Although, has not initiated. Since that time, he has not experienced any fever or vomiting and tolerating PO intake without difficulty. His last bowel movement was normal with no blood. His weight has remained stable, ranging between 166 and 170 pounds. [facility] Medical History Cholelithiasis Dyslipidemia Former smoker Other and unspecified hyperlipidemia Essential hypertension Surgical History Hx of right inguinal hernia repair History of colonoscopy Family History Father HTN (hypertension) Mother Cardiac pacemaker Brother HTN (hypertension) Sister HTN (hypertension) Social History Housing: House Are you a primary career representative to a significant other at home: No Do you presently have visiting nurse or other home services: No Alcohol intake: never Patient Tobacco Use Status: Former Tobacco user Tobacco use type: Cigarette e-Cigarette/Vaping Use: Never Used Second Hand Smoke Exposure: No service: Yes Current occupational status: retired Current occupational exposures/hazards: No Cognitive needs: No Hearing needs: No Vision needs: Yes Review of Systems Const Reports as per HPI ENT Reports as per HPI Card Reports as per HPI Resp Reports as per HPI GI Reports as per HPI Reports as per HPI Physical Exam Const General: healthy appearing, no acute distress and well developed Nutritional Appearance: average body habitus Orientation/consciousness: patient oriented x3 HEENT Head: Yes normal to inspection, Yes normocephalic and Yes atraumatic Face and sinus: Yes normal facial exam Eyes General: appearance normal, both eyes and all related structures Neck Neck: Yes normal visual inspection Resp Other: Normal breath sounds/voice sounds by video, breathing effortless, no wheezing noted. Patient spoke in full sentences without difficulty. Effort & Inspection: normal respiratory effort, able to speak in complete sentences, no tracheal deviation and symmetric chest movement Cardio Jugular venous distension: no JVD Neuro General: patient oriented x3 Gait exam (Neuro): Normal gait present Psych Appearance: grossly normal Mental Status: mental status grossly normal Speech and movement: Normal speech and movement present Affect: normal affect Attitude: cooperative Thought process: Normal thought process present Thought content: Normal thought content present Insight: Good insight present (Psych) Judgement: Good judgement present (Psych) Results Reviewed Results Reviewed: Date of Service: 06/04/25 Procedure(s): US abdomen complete Accession Number(s): [id number] cc: Karly Barney MD; Richelle Martinez CNP~ Reason for Exam: R10.13 - Epigastric pain CLINICAL HISTORY: R10.13 - Epigastric pain --- Additional Notes or Special Instructions: cholelithiasis US abdomen complete Comparison: CT/ME/SR - CT ABDOMEN PELVIS WITHOUT IV CONTRAST - 03/21/24 10:53 EDT US/SR - US ABDOMEN LIMITED - 02/28/24 08:08 EDT Findings: The visualized pancreas is normal. The visualized aorta and inferior vena cava are normal caliber. Calcified atherosclerotic plaques of the abdominal aorta. The liver is normal in size, right lobe length is 14.7 cm. Normal echogenicity of the liver parenchyma, no focal lesion is seen. No intrahepatic bile duct dilatation. The common duct is 6 mm in diameter. Physiologic distention of the gallbladder, 1 cm non mobile stone in the gallbladder neck, no gallbladder wall thickening, negative sonographic Boyd's sign. The main portal vein is patent with antegrade flow. The right kidney is normal, 10.8 cm in length. The left kidney is normal, 10.0 cm in length. The spleen is normal, 9.6 cm in length. No free fluid in the abdomen. Impression: Cholelithiasis, the 1 cm stone in the gallbladder neck is non-mobile and probably impacted, no acute inflammation. This document has been electronically signed by: Shy Langston MD on 06/05/2025 15:35:39 Assessment & Plan Assessment & Plan (1) Cholelithiasis: Code(s): K80.20 - Calculus of gallbladder without cholecystitis without obstruction Category: Medical Qualifiers: Cholelithiasis location: gallbladder Cholecystitis presence: without cholecystitis Biliary obstruction: without biliary obstruction Qualified Code(s): K80.20 - Calculus of gallbladder without cholecystitis without obstruction Plan: The patient's symptoms of nausea and discomfort are attributed to an impacted gallstone identified on ultrasound. - An urgent referral will be placed to General Surgery for evaluation for potential cholecystectomy, which is typically performed laparoscopically. - An upper endoscopy is still planned and the patient remains in the queue for this procedure. - The patient was advised he can trial omeprazole for symptomatic relief but is not required to take it. - Recommended diet and activity as tolerated. (2) Epigastric pain: Comment: 09/14/2024 colonoscopy (Dr. Larson) complete adequate prep-small internal hemorrhoids, otherwise normal colonoscopy. Recommendation for repeat in 10 years ( 2034). Code(s): R10.13 - Epigastric pain Category: Medical Plan: as above Plan Follow-up after endoscopy or sooner as needed Time: I spent a total of 20 minutes on the date of encounter which includes: Preparing to see the patient (reviewed previous documentation, test results and medical history) Performing a medically appropriate exam and/or evaluation Ordering medications, tests, and procedures Documenting clinical information in the health record Orders: Referrals General Surgery Referral K80.20 - Calculus of gallbladder without cholecystitis without obstruction, R10.13 - Epigastric pain, R11.0 - Nausea Coding Level of Care Code Established Pt Tele Est Pt Level 3 (90582) Patient Type Established Diagnoses Calculus of gallbladder without cholecystitis without obstruction K80.20 Cholelithiasis location: gallbladder Cholecystitis presence: without cholecystitis Biliary obstruction: without biliary obstruction Epigastric pain R10.13
--- OUTSIDE RECORDS SUMMARY | 2025-06-07 08:28 | XMS_ITS | Patient Health Record ---
Author Organization [facility] Address [address] [place] [address] Care Team Providers Care Print Designer Name Role Phone Karly Barney Primary Care [...] Status Risk Notes Problem Colon cancer screening ([id number]) Colon cancer screening (Z12.11) Active confirmed Vital Signs Temperature 98.6 degrees Fahrenheit 08/20/2024 Blood pressure diastolic 01 mm Hg 08/20/2024 Height 70 in 08/20/2024 Blood pressure systolic 001 mm Hg 08/20/2024 Weight 173.8 lbs 08/20/2024 BMI 24.93 kg/m2 08/20/2024 Encounters Encounter Location Date Provider Diagnosis [facility] Outpatient [address] [place], [place] [phone] 09/14/2024 Lawrence Larson Jr Colon cancer screening Z12.11 and Personal history of adenomatous and serrated colon polyps Z86.0101 [facility] [address] [place] [phone] 08/20/2024 Lawrence Larson Jr Colon cancer screening Z12.11 [facility] [address] [place] [phone] 09/12/2024 Lawrence Larson Jr Assessments Encounter Date [...] [place] [address] [place] [address] [phone] [id number] LEIGHTON MALIN Self - patient is the insured 9 [facility] [address] [place], [place] [phone] [id number] LEIGHTON MALIN Self - patient is the insured Medical (General) History Medical History History ICD Code hyperlipidemia hypertension Palpitations Surgical History Surgery Date(Month/Year) Right inguinal herniorrhaphy 05/06
== END 2025-06-07 09:20 | disposition home or self-care (01) ==
LOC: HO.HGI 08:25
PROVIDERS: PCP Internal Medicine; Visit Provider Nurse Practitioner Family
DX: K80.20 Calculus of gallbladder without cholecystitis without obstruction (principal); R10.13 Epigastric pain
CPT/HCPCS: 99213